=== PATIENT | male | born 1940 | race Caucasian/White ===

== ENCOUNTER 2018-09-04 11:17 | Emergency (ER) | payer MEDICARE ==
[2018-09-04 12:14] LABS: Absolute Lymphocytes (CBC) 0.9 K/uL (0.7-4.9); Absolute Monocytes 0.7 K/uL (0.1-1.3); Absolute Neutrophil 5.6 K/uL (1.8-8.0); Basophils % 0.4 % (0-1.3); Eosinophils % 0.4 % (0-4.4); Hematocrit 42.8 % (39.6-49.0); MCH 34.8 pg (27.0-35.0); MCV 99.7 fL (80-100); MPV 7.7 fL (7.6-11.3); RBC Red Blood Cell Count 4.29 M/uL (4.33-5.43)
[2018-09-04 12:37] LABS: ALT/SGPT 35 U/L (12-78); AST/SGOT 36 U/L (15-37); Albumin 3.2 g/dL (3.4-5.0); Alkaline Phosphatase 60 U/L (45-117); BUN Blood Urea Nitrogen 18 mg/dL (7-18); Bicarbonate 31 mmol/L (21-32); Bilirubin Direct 0.2 mg/dL (0-0.2); Bilirubin Total 0.5 mg/dL (0.2-1.0); Glucose Level 115 mg/dL (74-106); Potassium 3.6 mmol/L (3.5-5.1); Protein, Total 6.9 g/dL (6.4-8.2); Sodium Level 138 mmol/L (136-145)
--- NOTE | 2018-09-04 13:11 | RAD REPORT ---
EXAM DESCRIPTION: CT - Abdomen Pelvis W Contrast - 09/04/2018 12:58 pm CLINICAL HISTORY: Abdominal pain/cellulitis at percutaneous tube stoma. COMPARISON: none. TECHNIQUE: Computed axial tomography of the abdomen pelvis was obtained. 100 cc Isovue-300 was admin istered intravenously. Oral contrast was not requested which limits evaluation of bowel. All CT scans are performed using dose optimization technique as appropriate and may include automated exposure control or mA/KV adjustment according to patient size. FINDINGS: A gastrostomy tube has its tip within the left rectus abdominis muscle. Increased density surrounds the 2 within the subcutaneous fat consistent with a cellulitis. An abscess is not seen. The liver, spleen, pancreas, adrenal and kidneys appear unremarkable. Small renal cysts are noted. There is no evidence of diverticulitis. 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 IMPRESSION: Tip of a percutaneous gastrostomy tube lies within the left rectus abdominis muscle. Increased density within the subcutaneous fat of the left anterior abdomen compatible with cellulitis
--- NOTE | 2018-09-04 14:26 | EDPHYS ---
Physician Documentation [facility] Name: Johan Suarez Age: 78 yrs Sex: Male : 1940 Arrival Date: 09/04/2018 Time: 11:20 Bed 18 Private MD: Shane Shepherd E ED Physician Esdras Kennedy HPI: 09/04 12:30 This 78 yrs old Male presents to ER via Ambulatory with complaints of Problem pm1 With Feeding Tube. 12:30 Concerns of infection of the skin of the abdomen around the stoma. Description: Painful pm1 and reddened. Onset: The symptoms/episode began/occurred 4 day(s) ago. Possible cause(s): unknown. Associated signs and symptoms: Pertinent positives: discharge, Pertinent negatives: fever, headache, swelling. Modifying factors: the symptoms are alleviated by nothing, the symptoms are aggravated by nothing. Severity of symptoms: in the emergency department the symptoms are unchanged. The patient has not experienced similar symptoms in the past. 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 Patient had an appointment on Saturday for removal of his PEG tube since he has been eating and drinking for the past 2 weeks without any difficulty. For the past 4 days he has noticed some pain, redness, and discharge from his stoma. Patient has not been using the PEG tube, but has been flushing it. Historical: - Allergies: 11:25 No Known Allergies; aj - PMHx: 11:25 cancer (jaw); Hyperlipidemia; aj - PSHx: 11:25 Hernia repair(November 02, 2015); double bypass; aj - Immunization history:: Adult Immunizations up to date. - Social history:: Smoking status: Patient/guardian denies using tobacco. - Ebola Screening: : Patient negative for fever greater than or equal to 101.5 degrees Fahrenheit, and additional compatible Ebola Virus Disease symptoms Patient denies exposure to infectious person Patient denies travel to an Ebola-affected area in the 21 days before illness onset No symptoms or risks identified at this time. ROS: 12:30 Constitutional: Negative for fever, chills, and weight loss, Eyes: Negative for injury, pm1 pain, redness, and discharge, ENT: Negative for injury, pain, and discharge, Neck: Negative for injury, pain, and swelling, Cardiovascular: Negative for chest pain, palpitations, and edema, Respiratory: Negative for shortness of breath, cough, wheezing, and pleuritic chest pain, Abdomen/GI: Negative for abdominal pain, nausea, vomiting, diarrhea, and constipation, Back: Negative for injury and pain, : Negative for injury, bleeding, discharge, and swelling, MS/Extremity: Negative for injury and deformity. 12:30 Neuro: Negative for headache, weakness, numbness, tingling, and seizure. 12:30 Skin: Positive for pain, redness around the stoma and discharge from stoma. Exam: 12:30 Constitutional: This is a well developed, well nourished patient who is awake, alert, pm1 and in no acute distress. Head/Face: Normocephalic, atraumatic. Neck: Trachea midline, no thyromegaly or masses palpated, and no cervical lymphadenopathy. Supple, full range of motion without nuchal rigidity, or vertebral point tenderness. No Meningismus. Chest/axilla: Normal chest wall appearance and motion. Nontender with no deformity. No lesions are appreciated. Cardiovascular: Regular rate and rhythm with a normal S1 and S2. No gallops, murmurs, or rubs. Normal PMI, no JVD. No pulse deficits. Respiratory: Lungs have equal breath sounds bilaterally, clear to auscultation and percussion. No rales, rhonchi or wheezes noted. No increased work of breathing, no retractions or nasal flaring. Abdomen/GI: Soft, non-tender, with normal bowel sounds. No distension or tympany. No guarding or rebound. No evidence of tenderness throughout. Back: No spinal tenderness. No costovertebral tenderness. Full range of motion. 12:30 Skin: Appearance: normal except for affected area, cellulitis, on the abdomen, 5 cm diameter area of induration at stoma site. No fluctuance present. 12:30 Neuro: Orientation: is normal, Motor: is normal, moves all fours, Gait: is steady, at a normal pace, without difficulty. Vital Signs: 11:25 BP 129 / 58; Pulse 85; Resp 19; Temp 97.2; Pulse Ox 98% on R/A; Weight 65.77 kg; Height aj 5 ft. 10 in. (177.80 cm); 12:53 BP 128 / 60; Pulse 84; Resp 18; Pulse Ox 100% on R/A; hj 13:08 BP 134 / 68; Pulse 75; Resp 18; Pulse Ox 100% on R/A; hj 13:52 BP 125 / 69; Pulse 76; Resp 18; Pulse Ox 100% on R/A; hj 11:25 Body Mass Index 20.81 (65.77 kg, 177.80 cm) aj MDM: 11:30 Patient medically screened. pm1 13:50 Physician consultation: Panda Rodriguez MD was called at 13:50, was contacted at 13:50, pm1 regarding consult, patient's condition, Consulted on advice for management: No need to replace PEG tube if it was scheduled to be removed in 4 days. Patient has been able to eat and drink by mouth for the past 2 weeks without any issues. May give Bactrim and Levaquin for no more than 5 days for peristomal cellulitis if needed. Place dressing on stoma and inform the patient that there will be some leakage from the stoma for the next 7 days. After eating and drinking try positioning, lying back, to prevent leakage. 13:58 Data reviewed: vital signs. Data interpreted: Pulse oximetry: on room air is 100 %. pm1 Interpretation: normal. 14:21 Physician consultation: Paul Griffin was contacted at 14:22, regarding consult, pm1 patient's condition, and will see patient in office, 1 week from today. Agrees with plan from Dr. Rodriguez. Apply dressing with paper tape and discharge to home with antibiotics. 09/04 11:45 Order name: Basic Metabolic Panel; Complete Time: 12:38 pm1 09/04 11:45 Order name: CBC with Diff; Complete Time: 12:22 pm1 09/04 11:45 Order name: Hepatic Function; Complete Time: 12:38 pm1 09/04 11:45 Order name: IV Saline Lock; Complete Time: 11:58 pm1 09/04 11:45 Order name: Labs collected and sent; Complete Time: 11:58 pm1 09/04 11:45 Order name: CT Abd/Pelvis - W/Contrast; Complete Time: 13:17 pm1 Administered Medications: No medications were administered Disposition: 16:02 Co-signature as Attending Physician, Esdras Kennedy MD. rn Disposition: 09/04/18 14:25 Discharged to Home. Impression: Cellulitis of abdominal wall - Peristomal cellulitis. - Condition is Stable. - Discharge Instructions: Cellulitis, Adult. - Prescriptions for Bactrim DS 800- 160 mg Oral Tablet - take 1 tablet by ORAL route every 12 hours for 10 days; 20 tablet. - Medication Reconciliation Form, Thank You Letter, Antibiotic Education form. - Follow up: Private Physician; When: 1 week; Reason: Recheck today's complaints, Continuance of care, Re-evaluation by your physician. - Problem is new. - Symptoms have improved. Signatures: Dispatcher [employer] EDMS Loreta Aguilar RN RN aj Nieto, Roman, MD MD rn Joaquin, Henry, RN RN hj Marinas, Patrick, GLUE COOK GLUE COOK pm1 Corrections: (The following items were deleted from the chart) 14:26 14:25 09/04/2018 14:25 Discharged to Home. Impression: Peristomal cellulitis. Condition pm1 is Stable. Forms are Medication Reconciliation Form, Thank You Letter, Antibiotic Education, Prescription Opioid Use. Follow up: Private Physician; When: 1 week; Reason: Recheck today's complaints, Continuance of care, Re-evaluation by your physician. Problem is new. Symptoms have improved. pm1 14:47 14:26 09/04/2018 14:25 Discharged to Home. Impression: Cellulitis of abdominal wall - hj Peristomal cellulitis. Condition is Stable. Discharge Instructions: Cellulitis, Adult. Prescriptions for Bactrim DS 800-160 mg Oral Tablet - take 1 tablet by ORAL route every 12 hours for 10 days; 20 tablet. and Forms are Medication Reconciliation Form, Thank You Letter, Antibiotic Education. Follow up: Private Physician; When: 1 week; Reason: Recheck today's complaints, Continuance of care, Re-evaluation by your physician. Problem is new. Symptoms have improved. pm1
--- NOTE | 2018-09-04 14:26 | ER ---
Nurse's Notes [facility] Name: Johan Suarez Age: 78 yrs Sex: Male : 1940 Arrival Date: 09/04/2018 Time: 11:20 Bed 18 Private MD: Shane Shepherd E Diagnosis: Cellulitis of abdominal wall-Peristomal cellulitis Presentation: 09/04 11:24 Presenting complaint: Patient states: Reports redness, inflammation, and pain at aj feeding tube site for 4 days. Transition of care: patient was not received from another setting of care. Onset of symptoms was August 31, 2018. Risk Assessment: Do you want to hurt yourself or someone else? Patient reports no desire to harm self or others. Initial Sepsis Screen: Does the patient meet any 2 criteria? No. Patient's initial sepsis screen is negative. Does the patient have a suspected source of infection? No. Patient's initial sepsis screen is negative. Care prior to arrival: None. 11:24 Method Of Arrival: Ambulatory aj 11:24 Acuity: MONI 3 aj Triage Assessment: 11:25 General: Appears in no apparent distress. comfortable, Behavior is calm, cooperative, aj appropriate for age. Pain: Complains of pain in abdomen. Neuro: Level of Consciousness is awake, alert, obeys commands, Oriented to person, place, time, situation, Appropriate for age. Respiratory: Airway is patent Respiratory effort is even, unlabored, Respiratory pattern is regular, symmetrical. GI: PEG tube in place, clamped. Site reddened. Site with drainage. Derm: Skin is intact, is healthy with good turgor, Skin is pink, warm \T\ dry. normal. Historical: - Allergies: 11:25 No Known Allergies; aj - PMHx: 11:25 cancer (jaw); Hyperlipidemia; aj - PSHx: 11:25 Hernia repair(November 02, 2015); double bypass; aj - Immunization history:: Adult Immunizations up to date. - Social history:: Smoking status: Patient/guardian denies using tobacco. - Ebola Screening: : Patient negative for fever greater than or equal to 101.5 degrees Fahrenheit, and additional compatible Ebola Virus Disease symptoms Patient denies exposure to infectious person Patient denies travel to an Ebola-affected area in the 21 days before illness onset No symptoms or risks identified at this time. Screenin:28 Abuse screen: Denies threats or abuse. Denies injuries from another. Nutritional hj screening: No deficits noted. Tuberculosis screening: No symptoms or risk factors identified. Fall Risk None identified. Assessment: 11:29 General: Appears in no apparent distress. uncomfortable, Behavior is calm, cooperative, hj appropriate for age. Pain: Denies pain. Neuro: Level of Consciousness is awake, alert, obeys commands, Oriented to person, place, time, situation, Appropriate for age. Cardiovascular: Capillary refill < 3 seconds Patient's skin is warm and dry. Respiratory: Airway is patent Respiratory effort is even, unlabored, Respiratory pattern is regular, symmetrical. GI: Reports redness around area of feeding tube for 4 days now;. : No signs and/or symptoms were reported regarding the genitourinary system. EENT: No signs and/or symptoms were reported regarding the EENT system. Derm: No signs and/or symptoms reported regarding the dermatologic system. Musculoskeletal: No signs and/or symptoms reported regarding the musculoskeletal system. 12:53 Reassessment: wheeled to CT;. hj 12:55 Reassessment: Patient and/or family updated on plan of care and expected duration. Pain hj level reassessed. Patient is alert, oriented x 3, equal unlabored respirations, skin warm/dry/pink. awaiting results and POC;. 13:52 Reassessment: provider in room ; assisted provider in pulling out PEG tube; stoma care hj done;. 14:05 Reassessment: spoke with Dr. Paul Griffin, medical secretary and gave [phone] call back contact number; provider informed;. Vital Signs: 11:25 BP 129 / 58; Pulse 85; Resp 19; Temp 97.2; Pulse Ox 98% on R/A; Weight 65.77 kg; Height aj 5 ft. 10 in. (177.80 cm); 12:53 BP 128 / 60; Pulse 84; Resp 18; Pulse Ox 100% on R/A; hj 13:08 BP 134 / 68; Pulse 75; Resp 18; Pulse Ox 100% on R/A; hj 13:52 BP 125 / 69; Pulse 76; Resp 18; Pulse Ox 100% on R/A; hj 11:25 Body Mass Index 20.81 (65.77 kg, 177.80 cm) ED Course: 11:20 Patient arrived in ED. mr 11:20 Shane Shepherd MD is Private Physician. mr 11:25 Triage completed. aj 11:25 Arm band placed on left wrist. Patient placed in an exam room. aj 11:27 Christopher Mercer NP is PHCP. pm1 11:27 Esdras Kennedy MD is Attending Physician. pm1 11:27 Jean-Claude Avila, RN is Primary Nurse. 11:29 Patient has correct armband on for positive identification. Bed in low position. Call light in reach. Side rails up X 1. Adult w/ patient. 11:49 Radiology exam delayed due to lab results not completed at this time. (BUN/Creatinine). 11:55 Initial lab(s) drawn, by me, sent to lab. Inserted saline lock: 22 gauge in left hj antecubital area, using aseptic technique. Blood collected. 12:50 CT completed. Patient tolerated procedure well. Patient moved to CT via wheelchair. Patient moved back from CT. 12:59 CT Abd/Pelvis - W/Contrast In Process Unspecified. EDMS 14:25 Dressings: non-adherent dressing 4X4s secured with foam tape;. hj 14:26 No provider procedures requiring assistance completed. IV discontinued, intact, hj bleeding controlled, No redness/swelling at site. Pressure dressing applied. Administered Medications: No medications were administered Outcome: 14:25 Discharge ordered by MD. pm1 14:26 Discharged to home ambulatory, with family. hj 14:26 Condition: stable 14:26 Discharge instructions given to patient, Instructed on discharge instructions, follow up and referral plans. medication usage, Demonstrated understanding of instructions, follow-up care, medications, Prescriptions given X 1. 14:47 Patient left the ED. Signatures: Dispatcher [employer] EDMS Loreta Aguilar, Ann Holly RN Ana Falcon Jean-Claude Avila, Christopher Carlin RN, MASHA INTERVENTIONAL TECH pm1
[2018-09-04 14:51] VITALS: TEMP 97.2
[2018-09-04 14:53] VITALS: O2SAT 100
[2018-09-04 14:55] VITALS: BP 125/69
== END 2018-09-04 14:47 | disposition home or self-care (01) ==
LOC: ER 11:17
DX: L03.311 Cellulitis of abdominal wall (principal); E78.5 Hyperlipidemia, unspecified; Z85.89 Personal history of malignant neoplasm of other organs and systems
CPT/HCPCS: 36415; 74177; 80048; 80076; 85025; 99284; Q9967

== ENCOUNTER 2019-07-23 23:00 | Emergency (ER) | payer MEDICARE ==
[2019-07-23 23:37] LABS: Absolute Lymphocytes (CBC) 0.7 K/uL (0.7-4.9); Basophils % 0.1 % (0-1.3); Hematocrit 40.2 % (39.6-49.0); Lymphocytes % 13.1 % (15.3-44.8); MPV 7.4 fL (7.6-11.3)
[2019-07-23 23:38] LABS: Protime INR 1.1
[2019-07-23 23:54] LABS: ALT/SGPT 29 U/L (12-78); AST/SGOT 30 U/L (15-37); Albumin 3.8 g/dL (3.4-5.0); Alkaline Phosphatase 66 U/L (45-117); BUN Blood Urea Nitrogen 17 mg/dL (7-18); Bicarbonate 28 mmol/L (21-32); Bilirubin Direct 0.2 mg/dL (0-0.2); Bilirubin Total 0.5 mg/dL (0.2-1.0); Glucose Level 137 mg/dL (74-106); NT PRO-BNP 126 pg/mL (<450); Potassium 3.9 mmol/L (3.5-5.1); Sodium Level 137 mmol/L (136-145); Troponin (Emerg Dept Use Only) < 0.02 ng/mL (0.0-0.045)
--- NOTE | 2019-07-24 01:56 | ER ---
Nurse's Notes [facility] Name: Johan Suarez Age: 79 yrs Sex: Male : 1940 Arrival Date: 07/23/2019 Time: 23:05 Bed 6 Private MD: Diagnosis: Vertigo of central origin, bilateral;Vertigo of central origin, unspecified ear Presentation: 07/23 23:07 Presenting complaint: Patient states: N/V and dizziness sine 2200. pt stated EMS was ak1 called and came to his home and checked his vitals, no transport at that time. Transition of care: patient was not received from another setting of care. Onset of symptoms was July 23, 2019. Risk Assessment: Do you want to hurt yourself or someone else? Patient reports no desire to harm self or others. Initial Sepsis Screen: Does the patient meet any 2 criteria? No. Patient's initial sepsis screen is negative. Does the patient have a suspected source of infection? No. Patient's initial sepsis screen is negative. Care prior to arrival: None. 23:07 Method Of Arrival: Wheelchair ak1 23:07 Acuity: MONI 3 ak1 Historical: - Allergies: 23:11 No Known Allergies; ak1 - Home Meds: 23:11 metoprolol tartrate 25 mg Oral tab 1 tab 2 times per day [Active]; gabapentin 300 mg ak1 oral cap 1 cap 4 times daily [Active]; propionate [Active]; fluticasone furoate nasal nasal [Active]; simvastatin 40 mg Oral tab 1 tab once daily [Active]; cyclobenzaprine 10 mg Oral tab PRN [Active]; tramadol 50 mg Oral tab 1 tab PRN [Active]; hydrocodone-acetaminophen 7.5-325 mg Oral tab 1 tab PRN [Active]; Aspirin Oral [Active]; - PMHx: 23:11 cancer (jaw); Hyperlipidemia; ak1 - PSHx: 23:11 double bypass; Hernia repair(November 02, 2015); ak1 - Immunization history:: Adult Immunizations unknown. - Social history:: Smoking status: Patient/guardian denies using tobacco. - Ebola Screening: : No symptoms or risks identified at this time. Screenin:05 Abuse screen: Denies threats or abuse. Denies injuries from another. Nutritional rr5 screening: No deficits noted. Tuberculosis screening: No symptoms or risk factors identified. Fall Risk IV access (20 points). Total Meyer Fall Scale indicates No Risk (0-24 pts). Assessment: 23:10 General: Appears in no apparent distress. uncomfortable, Behavior is calm, cooperative, rr5 appropriate for age. 23:10 Pain: Denies pain. Neuro: Level of Consciousness is awake, alert, obeys commands, rr5 Oriented to person, place, time, situation, Appropriate for age Reports dizziness. Cardiovascular: Capillary refill < 3 seconds Patient's skin is warm and dry. Respiratory: Airway is patent Respiratory effort is even, unlabored, Respiratory pattern is regular, symmetrical. GI: Abdomen is flat, Reports nausea, vomiting. : No signs and/or symptoms were reported regarding the genitourinary system. EENT: post operation of the jaw noted.. Derm: Skin is intact, Skin is pink, warm \T\ dry. Musculoskeletal: Circulation, motion, and sensation intact. Capillary refill < 3 seconds. 07/24 00:10 Reassessment: Patient appears in no apparent distress at this time. Patient and/or rr5 family updated on plan of care and expected duration. Pain level reassessed. Patient is alert, oriented x 3, equal unlabored respirations, skin warm/dry/pink. awaiting for results. Patient states feeling better. Patient states symptoms have improved. 01:16 Reassessment: Patient appears in no apparent distress at this time. Patient is alert, rr5 oriented x 3, equal unlabored respirations, skin warm/dry/pink. discharge instruction given and explained without complaints made verbalized understanding Patient denies pain at this time. Patient states feeling better. Patient states symptoms have improved. Vital Signs: 07/23 23:06 BP 158 / 75; Pulse 68; Resp 18; Temp 97.2; Pulse Ox 100% on R/A; Weight 63.5 kg (R); ak1 Height 5 ft. 10 in. (177.80 cm) (R); Pain 0/10; 23:54 BP 131 / 80; Pulse 65; Resp 17; Pulse Ox 99% ; rr5 07/24 01:00 BP 125 / 75; Pulse 69; Resp 16; Temp 97.5; Pulse Ox 99% ; Pain 0/10; rr5 07/23 23:06 Body Mass Index 20.09 (63.50 kg, 177.80 cm) ak1 ED Course: 07/23 23:05 Patient arrived in ED. bb 23:05 Inserted saline lock: 20 gauge in right antecubital area, using aseptic technique. rr5 Blood collected. 23:06 Iam Villasenor MD is Attending Physician. kdr 23:06 Arm band placed on Patient placed in an exam room, on a stretcher, on pulse oximetry, ak1 Patient notified of wait time. 23:07 Triage completed. ak1 23:11 Patient has correct armband on for positive identification. Placed in gown. Bed in low ak1 position. Call light in reach. Side rails up X2. Adult w/ patient. Pulse ox on. NIBP on. 23:33 Jam Traylor, RN is Primary Nurse. rr5 23:37 CT completed. Patient tolerated procedure well. Patient moved to CT via stretcher. Patient moved back from CT. 23:40 CT Head Brain wo Cont In Process Unspecified. EDMS 23:49 XRAY Chest (1 view) In Process Unspecified. EDMS 09/ 01:16 No provider procedures requiring assistance completed. IV discontinued, intact, rr5 bleeding controlled, No redness/swelling at site. Pressure dressing applied. Administered Medications: No medications were administered Outcome: 00:44 Discharge ordered by . kdr 01:16 Discharged to home via wheelchair, with family. rr5 01:16 Condition: stable 01:16 Discharge instructions given to patient, Instructed on discharge instructions, follow up and referral plans. medication usage, Demonstrated understanding of instructions, follow-up care, medications, Prescriptions given X 1. 01:17 Patient left the ED. rr5 Signatures: Dispatcher [employer] EDOH Iam Villasenor MD MD [facility] Teto Dudley Yanely Goldberg RN RN bb Nancy Malagon, RN RN ak1 Jam Traylor, RN RN rr5
--- NOTE | 2019-07-24 02:02 | EDPHYS ---
Physician Documentation [facility] Name: Johan Suarez Age: 79 yrs Sex: Male : 1940 Arrival Date: 07/23/2019 Time: 23:05 Bed 6 Private MD: ED Physician Iam Villasenor HPI: 07/23 23:45 This 79 yrs old Male presents to ER via Wheelchair with complaints of kdr Dizziness. 23:45 The patient presents with feeling off balance, sense of spinning, vertigo. Onset: The kdr symptoms/episode began/occurred suddenly, at 21:30. Context: occurred at home, occurred while the patient was at rest, Had needed to get up and go to the bathroom and was immediately dizzy. He had been fine and without c/o all day. Modifying factors: The symptoms are alleviated by nothing, the symptoms are aggravated by movement of head, standing up, changing position. Associated signs and symptoms: Pertinent positives: nausea, vomiting, Pertinent negatives: abdominal pain, agitation, blurred vision, chest pain, combativeness, confusion, diaphoresis, focal weakness, head injury, headache, numbness, palpitations, . Severity of symptoms: At their worst the symptoms were moderate severe incapacitating in the emergency department the symptoms have resolved and did so just prior to arrival. Patient's baseline: Neuro: alert and fully oriented, Motor: no deficits, Ambulation: walks without assistance, Speech: normal, normal for age, the patient makes incomprehensible sounds, The patient has a previous history of. The patient has not experienced similar symptoms in the past. The patient has not recently seen a physician. 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 - Social history:: Smoking status: Patient/guardian denies using tobacco. - Ebola Screening: : No symptoms or risks identified at this time. ROS: 23:45 Constitutional: Negative for fever, chills, and weight loss, Eyes: Negative for injury, kdr pain, redness, and discharge, Neck: Negative for injury, pain, and swelling, Cardiovascular: Negative for chest pain, palpitations, and edema, Respiratory: Negative for shortness of breath, cough, wheezing, and pleuritic chest pain, Abdomen/GI: Negative for abdominal pain, nausea, vomiting, diarrhea, and constipation, Back: Negative for injury and pain, : Negative for injury, bleeding, discharge, and swelling, MS/Extremity: Negative for injury and deformity, Skin: Negative for injury, rash, and discoloration, Psych: Negative for depression, anxiety, suicide ideation, homicidal ideation, and hallucinations, Allergy/Immunology: Negative for hives, rash, and allergies, Endocrine: Negative for neck swelling, polydipsia, polyuria, polyphagia, and marked weight changes, Hematologic/Lymphatic: Negative for swollen nodes, abnormal bleeding, and unusual bruising. 23:45 Neuro: Positive for dizziness, Negative for altered mental status, gait disturbance, headache, hearing loss, loss of consciousness, numbness, seizure activity, speech changes, syncope, near syncope, tingling, tinnitus, tremor, visual changes, weakness. Exam: 23:18 ECG was reviewed by the Attending Physician. kdr 23:45 Constitutional: This is a well developed, well nourished patient who is awake, alert, kdr and in no acute distress. Head/Face: Normocephalic, atraumatic. Eyes: Pupils equal round and reactive to light, extra-ocular motions intact. Lids and lashes normal. Conjunctiva and sclera are non-icteric and not injected. Cornea within normal limits. Periorbital areas with no swelling, redness, or edema. Neck: Trachea midline, no thyromegaly or masses palpated, and no cervical lymphadenopathy. Supple, full range of motion without nuchal rigidity, or vertebral point tenderness. No Meningismus. Chest/axilla: Normal chest wall appearance and motion. Nontender with no deformity. No lesions are appreciated. Cardiovascular: Regular rate and rhythm with a normal S1 and S2. No gallops, murmurs, or rubs. Normal PMI, no JVD. No pulse deficits. Respiratory: Lungs have equal breath sounds bilaterally, clear to auscultation and percussion. No rales, rhonchi or wheezes noted. No increased work of breathing, no retractions or nasal flaring. Abdomen/GI: Soft, non-tender, with normal bowel sounds. No distension or tympany. No guarding or rebound. No evidence of tenderness throughout. Back: No spinal tenderness. No costovertebral tenderness. Full range of motion. Skin: Warm, dry with normal turgor. Normal color with no rashes, no lesions, and no evidence of cellulitis. MS/ Extremity: Pulses equal, no cyanosis. Neurovascular intact. Full, normal range of motion. Neuro: Awake and alert, GCS 15, oriented to person, place, time, and situation. Cranial nerves II-XII grossly intact. Motor strength 5/5 in all extremities. Sensory grossly intact. Cerebellar exam normal. Normal gait. Psych: Awake, alert, with orientation to person, place and time. Behavior, mood, and affect are within normal limits. Vital Signs: 23:06 BP 158 / 75; Pulse 68; Resp 18; Temp 97.2; Pulse Ox 100% on R/A; Weight 63.5 kg (R); ak1 Height 5 ft. 10 in. (177.80 cm) (R); Pain 0/10; 23:54 BP 131 / 80; Pulse 65; Resp 17; Pulse Ox 99% ; rr5 07/24 01:00 BP 125 / 75; Pulse 69; Resp 16; Temp 97.5; Pulse Ox 99% ; Pain 0/10; rr5 07/23 23:06 Body Mass Index 20.09 (63.50 kg, 177.80 cm) ak1 MDM: 07/23 23:45 Data reviewed: vital signs, nurses notes, lab test result(s), radiologic studies. kdr Counseling: I had a detailed discussion with the patient and/or guardian regarding: the historical points, exam findings, and any diagnostic results supporting the discharge/admit diagnosis, lab results, radiology results. 07/24 00:44 Patient medically screened. [facility] 07/23 23:08 Order name: Basic Metabolic Panel; Complete Time: 00:34 [facility] 07/23 23:08 Order name: CBC with Diff; Complete Time: 00:34 [facility] 07/23 23:08 Order name: LFT's; Complete Time: 00:34 [facility] 07/23 23:08 Order name: Magnesium; Complete Time: 00:34 [facility] 07/23 23:08 Order name: NT PRO-BNP; Complete Time: 00:34 [facility] 07/23 23:08 Order name: PT-INR; Complete Time: 00:34 [facility] 07/23 23:08 Order name: Troponin (emerg Dept Use Only); Complete Time: 00:34 [facility] 07/23 23:08 Order name: XRAY Chest (1 view) [facility] 07/23 23:08 Order name: EKG; Complete Time: 23:10 [facility] 07/23 23:08 Order name: Cardiac monitoring; Complete Time: 23:10 [facility] 07/23 23:08 Order name: EKG - Nurse/Tech; Complete Time: 23:10 [facility] 07/23 23:08 Order name: IV Saline Lock; Complete Time: 23:10 [facility] 07/23 23:08 Order name: Labs collected and sent; Complete Time: 23:10 [facility] 07/23 23:08 Order name: CT Head Brain wo Cont [facility] 07/23 23:08 Order name: O2 Per Protocol; Complete Time: 23:10 [facility] 07/23 23:08 Order name: O2 Sat Monitoring; Complete Time: 23:10 kdr EC/05 23:18 Rate is 66 beats/min. Rhythm is regular, Normal Sinus Rhythm with No ectopy. QRS [place] kdr is Normal. MN interval is normal. QRS interval is normal. QT interval is normal. No Q waves. T waves are Normal. Clinical impression: Normal ECG. Administered Medications: No medications were administered Disposition: 07/24/19 00:44 Discharged to Home. Impression: Vertigo of central origin, bilateral, Vertigo of central origin, unspecified ear. - Condition is Stable. - Discharge Instructions: Vertigo, Tlno-ej-Goxu, Dizziness, Mopr-lj-[id number]. - Prescriptions for Meclizine 25 mg Oral Tablet - take 1 tablet by ORAL route every 8 hours As needed; 30 tablet. - Medication Reconciliation Form, Thank You Letter form. - Follow up: Private Physician; When: 2 - 3 days; Reason: If symptoms return, Further diagnostic work-up, Recheck today's complaints, Continuance of care, Re-evaluation by your physician. - Problem is new. - Symptoms are resolved. Signatures: Dispatcher [employer] EDMS Iam Villasenor MD MD kdr Nancy Malagon, RN RN ak1 Jam Traylor RN RN rr5 Corrections: (The following items were deleted from the chart) 07/24 00:44 00:44 07/24/2019 00:44 Discharged to Home. Impression: Vertigo of central origin, kdr bilateral; Vertigo of central origin, unspecified ear. Condition is Stable. Forms are Medication Reconciliation Form, Thank You Letter, Antibiotic Education, Prescription Opioid Use. Follow up: Private Physician; When: 2 - 3 days; Reason: If symptoms return, Further diagnostic work-up, Recheck today's complaints, Continuance of care, Re-evaluation by your physician. kdr 01:17 00:44 07/24/2019 00:44 Discharged to Home. Impression: Vertigo of central origin, rr5 bilateral; Vertigo of central origin, unspecified ear. Condition is Stable. Forms are Medication Reconciliation Form, Thank You Letter, Antibiotic Education, Prescription Opioid Use. Follow up: Private Physician; When: 2 - 3 days; Reason: If symptoms return, Further diagnostic work-up, Recheck today's complaints, Continuance of care, Re-evaluation by your physician. Problem is new. Symptoms are resolved. kdr
--- NOTE | 2019-07-24 08:23 | EKG ---
Test Date: 2019-07-23 Test Time: 23:16:18 Manager Of Case Management: RR MEASUREMENT RESULTS: Intervals: Rate: 66 [place]: 186 QRSD: 108 QT: 422 QTc: 442 [place]: P: 86 [place]: 186 QRS: 67 T: 77 INTERPRETIVE STATEMENTS: Normal sinus rhythm Normal ECG No previous ECG available for comparison Electronically Signed On 07-24-19 08:22:43 CDT by Kai Castillo
[2019-07-24 08:44] VITALS: O2SAT 99
[2019-07-24 08:46] VITALS: BP 125/75; TEMP 97.5
--- NOTE | 2019-07-24 09:38 | RAD REPORT ---
EXAM DESCRIPTION: RAD - Chest Single View - 07/23/2019 11:49 pm CLINICAL HISTORY: Dizziness, shortness of breath, history of head and neck cancer COMPARISON: October 2015, March 2012 TECHNIQUE: AP portable chest image was obtained 2337 hours . FINDINGS: Patient has multiple bilateral calcified masses in the mid and upper lung mason. Dense ca lcified mediastinal and hilar lymph nodes are present. This is a stable pattern back to 2011. Heart a nd vasculature are normal. No measurable pleural effusion and no pneumothorax. No acute bony abnormal ity seen. No acute aortic findings suspected. IMPRESSION: No acute cardiopulmonary finding identified. Bilateral calcified masses of the mediastinum, hilar and upper lung mason are stable to at least 201 2. Silicosis is a primary consideration.
--- NOTE | 2019-07-24 10:12 | RAD REPORT ---
EXAM DESCRIPTION: CT - Head Brain Wo Cont - 07/24/2019 3:17 am CLINICAL HISTORY: DIZZINESS TECHNIQUE: Multiple axial CT images of the brain were performed followed by sagittal and coronal rec onstructed images. The CT study is performed according to ALARA (as low as reasonably achievable) or ALARA/IMAGE GENTLY, with automatic adjustment of mA and/or kV according to patient size. Performed on: 07/23/2019 at 11:17 PM COMPARISON: None. FINDINGS: There is no evidence of mass, acute mass effect or midline shift. There are no acute extra -axial fluid collections. There is no evidence of acute intracranial hemorrhage. The cerebral sulci and ventricles are prominent consistent with mild cerebral volume loss. There are scattered areas of decreased attenuation within the subcortical and periventricular white m atter most likely due to mild chronic microangiopathy. There is no significant mucosal thickening of the paranasal sinuses. The mastoid air cells are clear. The orbital contents are grossly unremarkable. There is dislocation of the right temporomandibular joint. No focal soft tissue abnormalities are identified. IMPRESSION: 1. Dislocation of the right temporomandibular joint. 2. No evidence of acute intracranial pathology. 3. 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 Electronically signed by: Alondra West DO 07/23/2019 11:48 PM CDT Due to temporary technical issues with the PACS/Fluency reporting system, reports are being signed by the in house radiologist as a courtesy to ensure prompt reporting. The interpreting radiologist is f ully responsible for the content of the report.
== END 2019-07-24 01:17 | disposition home or self-care (01) ==
LOC: ER 23:00
DX: H81.43 Vertigo of central origin, bilateral (principal); E78.5 Hyperlipidemia, unspecified
CPT/HCPCS: 36415; 70450; 71045; 80048; 80076; 83735; 83880; 84484; 85025; 85610; 93005; 99284

== ENCOUNTER 2021-02-11 19:14 | Emergency (ER) | payer MEDICARE ==
--- OUTSIDE RECORDS SUMMARY | 2021-02-11 19:17 | XMS REPORT | Continuity of Care Document ---
:1940 Author Organization [facility] t Address [address] [place] [address] Dr. Sosa [address] [place] [id number] Care Team Providers Name Role Phone Unavailable Unavailable Unavailable Problems This patient has no known problems. Allergies, Adverse Reactions, Alerts This patient has no known allergies or adverse reactions. Medications This patient has no known medications. Procedures This patient has no known procedures. Encounters Start End Encounter Admission Attending Care Care Encounter Source Date/Time Date/Time Type Type Clinicians Facility Department ID 2021-01-18 2021-01-18 Outpatient [facility] [id number] [facility] 06:25:00 06:25:00 Results This patient has no known results.
[2021-02-11] MEDS ORDERED: NA CHLORIDE 0.9% 1,000 ML ONE (21:29)
[2021-02-11 21:30] LABS: Absolute Lymphocytes (CBC) 0.9 K/uL (0.7-4.9); Basophils % 0.3 % (0-1.3); Hematocrit 36.8 % (39.6-49.0); Lymphocytes % 18.6 % (15.3-44.8); MPV 6.6 fL (7.6-11.3); RBC Red Blood Cell Count 3.99 M/uL (4.33-5.43)
[2021-02-11 21:33] LABS: Protime INR 1.15
[2021-02-11 21:41] LABS: ALT/SGPT 27 U/L (12-78); AST/SGOT 28 U/L (15-37); Albumin 3.4 g/dL (3.4-5.0); Alkaline Phosphatase 70 U/L (45-117); BUN Blood Urea Nitrogen 12 mg/dL (7-18); Bicarbonate 31 mmol/L (21-32); Bilirubin Direct 0.2 mg/dL (0-0.2); Bilirubin Total 0.6 mg/dL (0.2-1.0); Glucose Level 120 mg/dL (74-106); Protein, Total 7.3 g/dL (6.4-8.2); Sodium Level 128 mmol/L (136-145)
[2021-02-11] MEDS ORDERED: MAGNES/ALUMIN/SIMET 30ML UCUP ONE (22:14)
[2021-02-11] MEDS ORDERED: LIDOCAINE VISCOUS 2% SOLN 15 ML UDC ONE (22:15)
[2021-02-11] MEDS ORDERED: DIPHENHYDRAMINE 12.5MG/5ML LIQ ONE (22:15)
--- NOTE | 2021-02-11 23:53 | ER ---
Nurse's Notes [facility] Name: Johan Suarez Age: 80 yrs Sex: Male : 1940 Arrival Date: 02/11/2021 Time: 19:16 Bed 19 Private MD: Diagnosis: Oral Candidiasis Presentation: 02/11 19:30 Chief complaint: Patient states: Has jaw CA. Mouth/gum swelling for over 1 week, worse ll1 today No known fever. Has chemo and radiation appointments coming up. Coronavirus screen: Client denies travel out of the [place] in the last 14 days. At this time, the client does not indicate any symptoms associated with coronavirus-19. Ebola Screen: Patient denies travel to an Ebola-affected area in the 21 days before illness onset. Initial Sepsis Screen: Does the patient meet any 2 criteria? No. Patient's initial sepsis screen is negative. Does the patient have a suspected source of infection? Yes: Skin breakdown/wound. Risk Assessment: Do you want to hurt yourself or someone else? Patient reports no desire to harm self or others. Onset of symptoms was February 05, 2021. 19:30 Method Of Arrival: Ambulatory ll1 19:30 Acuity: MONI 3 ll1 Historical: - Allergies: 19:34 No Known Allergies; ll1 - Home Meds: 21:52 metoprolol tartrate 25 mg Oral tab 1 tab 2 times per day [Active]; gabapentin 300 mg sf Oral cap 1 cap 4 times daily [Active]; fluticasone 50 mcg/actuation nasal spsn 1 spray once daily [Active]; simvastatin 40 mg Oral tab 1 tab once daily [Active]; cyclobenzaprine 10 mg Oral tab PRN [Active]; tramadol 50 mg Oral tab 1 tab PRN [Active]; hydrocodone-acetaminophen 7.5-325 mg Oral tab 1 tab PRN [Active]; Aspirin Oral 2 times a week [Active]; saw palmetto oral oral daily [Active]; ginkgo biloba 120 mg oral tab [Active]; colostrum, bovine oral oral [Active]; vitamin U18-qhiyq acid oral oral 3 times a week [Active]; multivitamin oral oral [Active]; vitamin E 400 unit Oral cap [Active]; Vitamin D3 5,000 unit oral tab 2 times a week [Active]; - PMHx: 19:34 cancer (jaw); Hyperlipidemia; ll1 - PSHx: 19:34 double bypass; Hernia repair(November 02, 2015); jaw CA sx-12/2017; ll1 - Immunization history:: Flu vaccine is not up to date. - Social history:: Smoking status: Patient/guardian denies using tobacco, the patient reports quitting approximately 50 years ago. Assessment: 21:10 General: Appears uncomfortable, Behavior is calm, cooperative. Pain: Complains of pain sf in mouth. Neuro: No deficits noted. Level of Consciousness is awake, alert, Oriented to person, place, time, situation. Cardiovascular: No deficits noted. Patient's skin is warm and dry. Respiratory: No deficits noted. Airway is patent Respiratory effort is even, unlabored, Respiratory pattern is regular, symmetrical. GI: Reports Decreased PO intake. EENT: Reports difficulty swallowing. 23:40 Reassessment: Patient appears in no apparent distress at this time. No changes from sf previously documented assessment. Patient and/or family updated on plan of care and expected duration. Pain level reassessed. Patient is alert, oriented x 3, equal unlabored respirations, skin warm/dry/pink. Patient states feeling better. Patient states symptoms have improved. 02/12 00:27 Reassessment: Patient is alert, oriented x 3, equal unlabored respirations, skin bb warm/dry/pink. pt states he is feeling better, pt and family verbalized understanding of and agree to plan of care discharge instructions given pt ambulated with steady gait to exit accompanied by family. Vital Signs: 02/11 19:30 BP 144 / 68; Pulse 75; Resp 17; Temp 97.8; Pulse Ox 99% ; Weight 53.52 kg; Height 5 ft. ll1 9 in. (175.26 cm); Pain 5/10; 22:00 BP 131 / 49; Pulse 78; Resp 16; Pulse Ox 100% ; sf 02/12 00:28 BP 150 / 71; Pulse 80; Resp 16 S; Temp 97.9(O); Pulse Ox 99% on R/A; bb 02/11 19:30 Body Mass Index 17.42 (53.52 kg, 175.26 cm) ll1 ED Course: 02/11 19:16 Patient arrived in ED. cl3 19:33 Triage completed. ll1 19:34 Arm band placed on. ll1 20:39 Renato Hernandez MD is Attending Physician. [facility] 20:40 Beny Devries RN is Primary Nurse. sf 21:05 Initial lab(s) drawn, by ED staff, sent to lab. Inserted saline lock: 20 gauge in right sf antecubital area, using aseptic technique. Blood collected. 21:09 CBC with Diff Sent. sf 21:09 Ptt, Activated Sent. sf 21:09 Protime (+inr) Sent. sf 21:10 Patient has correct armband on for positive identification. Bed in low position. Call sf light in reach. Side rails up X 1. Pulse ox on. NIBP on. Door closed. Noise minimized. Visitors limited. Lights dimmed. Verbal reassurance given. 02/12 00:29 No provider procedures requiring assistance completed. IV discontinued, intact, bb bleeding controlled, No redness/swelling at site. Pressure dressing applied. Administered Medications: 02/11 21:15 Drug: NS 0.9% 1000 ml Route: IV; Rate: 1000 ml; Site: right antecubital; sf 22:00 Follow up: IV Status: Completed infusion; IV Intake: 1000ml sf 23:48 Follow up: Response: No adverse reaction sf 22:03 Drug: Viscous Lidocaine Liquid (4 %) 5 ml Route: Mucous Membrane; sf 22:57 Follow up: Response: No adverse reaction sf 22:03 Drug: Benadryl (diphenhydrAMINE) 5 ml Route: PO; sf 22:57 Follow up: Response: No adverse reaction sf 22:03 Drug: Maalox (aluminum hydroxide, magnesium hydroxide, simethicone) Suspension (200 sf mg-200 mg-20 mg/5 mL) 15 ml Route: PO; 22:57 Follow up: Response: No adverse reaction sf 22:57 Not Given (Medication not available): nystatin 465797 units PO once; swish and swallow sf Intake: 22:00 IV: 1000ml; Total: 1000ml. sf Outcome: 23:53 Discharge ordered by . [facility] 02/12 00:29 Discharged to home ambulatory, with family. bb Condition: stable Discharge instructions given to patient, family, Instructed on discharge instructions, follow up and referral plans. medication usage, Demonstrated understanding of instructions, follow-up care, medications, Prescriptions given X 2. 00:29 Patient left the ED. bb Signatures: Yanely Goldberg RN RN bb Alfonso Douglas cl3 Pietro Douglas RN RN 1 Renato Hernandez MD MD 7 Beny Devries RN RN sf Corrections: (The following items were deleted from the chart) 02/11 19:34 19:30 BP 144 / 68; Pulse 75bpm; Resp 17bpm; Pulse Ox 99%; Temp 96.8F; 53.52 kg; Height ll1 5 ft. 9 in.; BMI: 17.4; Pain 5/10; ll1
--- NOTE | 2021-02-11 23:53 | EDPHYS ---
Physician Documentation [facility] Name: Johan Suarez Age: 80 yrs Sex: Male : 1940 Arrival Date: 02/11/2021 Time: 19:16 Bed 19 Private MD: [facility] Physician Renato Hernandez HPI: 02/11 21:03 This 80 yrs old Male presents to ER via Ambulatory with complaints of Mouth mh7 Swelling. 21:03 The patient presents with swelling. The problem is located in the mouth. Onset: The mh7 symptoms/episode began/occurred 1 week(s) ago, present for 2 months per family. Duration: The symptoms are continuous, and are steadily getting worse. Modifying factors: The symptoms are alleviated by nothing, the symptoms are aggravated by nothing. Associated signs and symptoms: Pertinent positives: anorexia, pain, redness in area, swelling, Pertinent negatives: chills, dysphagia, fever, inability to eat, nausea, vomiting. Severity of symptoms: At their worst the symptoms were moderate, this morning, in the emergency department the symptoms are unchanged. Patient had jaw surgery, radiation, and chemotherapy for cancer in 2018. He complains of swelling to mouth that started two months ago but steadily increasing. he has been able to tolerate liquids with some difficulty. Denies chest pain, abdominal pain, SOB, cough, fever, nausea, vomiting.. Historical: - Allergies: 19:34 No Known Allergies; ll1 - Home Meds: 21:52 metoprolol tartrate 25 mg Oral tab 1 tab 2 times per day [Active]; gabapentin 300 mg sf Oral cap 1 cap 4 times daily [Active]; fluticasone 50 mcg/actuation nasal spsn 1 spray once daily [Active]; simvastatin 40 mg Oral tab 1 tab once daily [Active]; cyclobenzaprine 10 mg Oral tab PRN [Active]; tramadol 50 mg Oral tab 1 tab PRN [Active]; hydrocodone-acetaminophen 7.5-325 mg Oral tab 1 tab PRN [Active]; Aspirin Oral 2 times a week [Active]; saw palmetto oral oral daily [Active]; ginkgo biloba 120 mg oral tab [Active]; colostrum, bovine oral oral [Active]; vitamin C95-yxvwa acid oral oral 3 times a week [Active]; multivitamin oral oral [Active]; vitamin E 400 unit Oral cap [Active]; Vitamin D3 5,000 unit oral tab 2 times a week [Active]; - PMHx: 19:34 cancer (jaw); Hyperlipidemia; ll1 - PSHx: 19:34 double bypass; Hernia repair(November 02, 2015); jaw CA sx-12/2017; ll1 - Immunization history:: Flu vaccine is not up to date. - Social history:: Smoking status: Patient/guardian denies using tobacco, the patient reports quitting approximately 50 years ago. ROS: 21:03 Eyes: Negative for injury, pain, redness, and discharge, Neck: Negative for injury, mh7 pain, and swelling, Cardiovascular: Negative for chest pain, palpitations, and edema, Respiratory: Negative for shortness of breath, cough, wheezing, and pleuritic chest pain, Abdomen/GI: Negative for abdominal pain, nausea, vomiting, diarrhea, and constipation, Back: Negative for injury and pain, : Negative for injury, bleeding, discharge, and swelling, MS/Extremity: Negative for injury and deformity, Skin: Negative for injury, rash, and discoloration, Neuro: Negative for headache, weakness, numbness, tingling, and seizure, Psych: Negative for depression, anxiety, suicide ideation, homicidal ideation, and hallucinations, Allergy/Immunology: Negative for hives, rash, and allergies, Endocrine: Negative for neck swelling, polydipsia, polyuria, polyphagia, and marked weight changes, Hematologic/Lymphatic: Negative for swollen nodes, abnormal bleeding, and unusual bruising. 21:03 Constitutional: Positive for weight loss, 50 lbs over the past few years, Negative for body aches, chills, fatigue, fever, malaise. Exam: 21:03 Head/Face: Normocephalic, atraumatic. Eyes: Pupils equal round and reactive to light, mh7 extra-ocular motions intact. Lids and lashes normal. Conjunctiva and sclera are non-icteric and not injected. Cornea within normal limits. Periorbital areas with no swelling, redness, or edema. 21:03 Neck: Trachea midline, no thyromegaly or masses palpated, and no cervical lymphadenopathy. Supple, full range of motion without nuchal rigidity, or vertebral point tenderness. No Meningismus. Chest/axilla: Normal chest wall appearance and motion. Nontender with no deformity. No lesions are appreciated. Cardiovascular: Regular rate and rhythm with a normal S1 and S2. No gallops, murmurs, or rubs. Normal PMI, no JVD. No pulse deficits. Respiratory: Lungs have equal breath sounds bilaterally, clear to auscultation and percussion. No rales, rhonchi or wheezes noted. No increased work of breathing, no retractions or nasal flaring. Abdomen/GI: Soft, non-tender, with normal bowel sounds. No distension or tympany. No guarding or rebound. No evidence of tenderness throughout. Back: No spinal tenderness. No costovertebral tenderness. Full range of motion. Skin: Warm, dry with normal turgor. Normal color with no rashes, no lesions, and no evidence of cellulitis. MS/ Extremity: Pulses equal, no cyanosis. Neurovascular intact. Full, normal range of motion. Neuro: Awake and alert, GCS 15, oriented to person, place, time, and situation. Cranial nerves II-XII grossly intact. Motor strength 5/5 in all extremities. Sensory grossly intact. Cerebellar exam normal. Normal gait. Psych: Awake, alert, with orientation to person, place and time. Behavior, mood, and affect are within normal limits. 21:03 Constitutional: The patient appears in no acute distress, alert, awake, frail. 21:03 Head/face: left facial scaring. 23:47 ENT: External ear(s): are unremarkable, Nose: is normal, Mouth: Lips: moist, Oral mh7 mucosa: pink and intact, noted to have obvious thrush, Gums: reddened, Tongue: displays thrush, abscess, is not appreciated, drooling, is not appreciated, Posterior pharynx: is normal, airway is patent, Dental exam: normal, Voice: no acute changes, Breath odor: is normal. Vital Signs: 19:30 BP 144 / 68; Pulse 75; Resp 17; Temp 97.8; Pulse Ox 99% ; Weight 53.52 kg; Height 5 ft. ll1 9 in. (175.26 cm); Pain 5/10; 22:00 BP 131 / 49; Pulse 78; Resp 16; Pulse Ox 100% ; sf 02/12 00:28 BP 150 / 71; Pulse 80; Resp 16 S; Temp 97.9(O); Pulse Ox 99% on R/A; bb 02/11 19:30 Body Mass Index 17.42 (53.52 kg, 175.26 cm) ll1 [facility]: 02/11 23:50 Differential diagnosis: gingivitis, dental abscess, pericoronitis, aphthous ulcers, mh7 acute necrotizing ulcerative gingivitis, gingivostomatitis, Oral Thrush. Data reviewed: vital signs, nurses notes, lab test result(s), CBC, electrolytes. Data interpreted: Pulse oximetry: on room air is 100 %. Interpretation: normal. Counseling: I had a detailed discussion with the patient and/or guardian regarding: the historical points, exam findings, and any diagnostic results supporting the discharge/admit diagnosis, lab results, the need for outpatient follow up, to return to the emergency department if symptoms worsen or persist or if there are any questions or concerns that arise at home. Response to treatment: the patient's symptoms have markedly improved after treatment. 23:53 Patient medically screened. [facility] 02/11 20:57 Order name: CBC with Diff [facility] 02/11 20:57 Order name: Basic Metabolic Panel; Complete Time: 22:19 [facility] 02/11 20:57 Order name: LFT's; Complete Time: 22:19 [facility] 02/11 20:57 Order name: CBC with Automated Diff; Complete Time: 21:40 [facility] 02/11 21:03 Order name: Protime (+inr) [facility] 02/11 21:03 Order name: Ptt, Activated [facility] 02/11 21:03 Order name: Protime (+INR); Complete Time: 21:40 [facility] 02/11 21:03 Order name: PTT, Activated Partial Thromb; Complete Time: 21:40 [facility] 02/11 22:40 Order name: PO challenge; Complete Time: 23:46 [facility] Administered Medications: 21:15 Drug: NS 0.9% 1000 ml Route: IV; Rate: 1000 ml; Site: right antecubital; sf 22:00 Follow up: IV Status: Completed infusion; IV Intake: 1000ml sf 23:48 Follow up: Response: No adverse reaction sf 22:03 Drug: Viscous Lidocaine Liquid (4 %) 5 ml Route: Mucous Membrane; sf 22:57 Follow up: Response: No adverse reaction sf 22:03 Drug: Benadryl (diphenhydrAMINE) 5 ml Route: PO; sf 22:57 Follow up: Response: No adverse reaction sf 22:03 Drug: Maalox (aluminum hydroxide, magnesium hydroxide, simethicone) Suspension (200 sf mg-200 mg-20 mg/5 mL) 15 ml Route: PO; 22:57 Follow up: Response: No adverse reaction sf 22:57 Not Given (Medication not available): nystatin 363903 units PO once; swish and swallow sf Disposition: 02/11/21 23:53 Discharged to Home. Impression: Oral Candidiasis. - Condition is Stable. - Discharge Instructions: Thrush, Adult, [id number]. - Prescriptions for Nystatin 100,000 unit/mL Oral Suspension - take 20 milliliter by ORAL route every 6 hours for 7 days; 560 milliliter. - Medication Reconciliation Form, Thank You Letter, Antibiotic Education, Prescription Opioid Use form. - Follow up: Private Physician; When: 1 - 2 days; Reason: Worsening of condition, Recheck today's complaints, Continuance of care, Re-evaluation by your physician. - Problem is an ongoing problem. - Symptoms have improved. Signatures: Dispatcher [employer] EDMS Yanely Goldberg RN RN bb Pietro Douglas RN RN 1 Renato Hernandez MD MD 7 Beny Devries RN RN sf Corrections: (The following items were deleted from the chart) 02/12 00:29 02/11 23:53 02/11/2021 23:53 Discharged to Home. Impression: Oral Candidiasis. bb Condition is Stable. Forms are Medication Reconciliation Form, Thank You Letter, Antibiotic Education, Prescription Opioid Use. Follow up: Private Physician; When: 1 - 2 days; Reason: Worsening of condition, Recheck today's complaints, Continuance of care, Re-evaluation by your physician. Problem is an ongoing problem. Symptoms have improved. mh7
[2021-02-12 07:19] VITALS: BP 150/71; TEMP 97.9; O2SAT 99
== END 2021-02-12 00:29 | disposition home or self-care (01) ==
LOC: ER 19:14
DX: B37.0 Candidal stomatitis (principal); Z85.89 Personal history of malignant neoplasm of other organs and systems; E78.5 Hyperlipidemia, unspecified; Z79.82 Long term (current) use of aspirin; Z95.1 Presence of aortocoronary bypass graft
CPT/HCPCS: 85025; 80048; 36415; 85610; 80076; 85730; 96360; 99284; J7030; Q0163

== ENCOUNTER 2021-03-12 14:05 | Inpatient (IN) | payer MEDICARE ==
--- OUTSIDE RECORDS SUMMARY | 2021-03-12 14:10 | XMS REPORT | Continuity of Care Document ---
:1940 Author Organization [facility] t Address [address] [place] [address] Care Team Providers Name Role Phone Rubén Villalobos Attending Clinician Lauri Ruvalcaba Attending Clinician VISIT, [facility] Attending Clinician Unavailable Rubén Villalobos Admitting Clinician Lauri Ruvalcaba Admitting Clinician Problems Condition Condition Condition Status Onset Resolution Last Treating Co mments Source Name Details Category Date Date Treatment Clinician Date NEEDS Diagnosis Active 2021-03-10 Mem oria FEEDING 02-13 22:01:00 l TUBE/DR NEEDS 00:00: [place] REFERRAL FEEDING 00 TUBE/DR REFERRAL Active 02/13/2021 [facility] C00.9 - Diagnosis Active 2021-02-14 Me moria MALIGNANT 01-13 10:40:00 l NEOPLASM C00.9 - 00:01: Debora nn OF LIP, MALIGNANT 00 UNS NEOPLASM OF LIP, UNS Active 01/13/2021 BRETT Mendoza C76.0 - Diagnosis Active 2021-02-13 Me moria MALIGNANT 01-12 15:20:00 l NEOPLASM C76.0 - 00:01: Debora nn OF HEAD, MALIGNANT 00 FA C NEOPLASM OF HEAD, FA C Active 01/12/2021 BRETT Shay C09.9 Diagnosis Active 2021-02-14 Mem oria - 10:40:00 l C09.9 00:00: Jaspal 00 Active 01/12/2021 [facility] 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-12-25 Me moria MALIGNANT - 13:12:00 l NEOPLASM C76.0 - 00:01: Debora nn OF HEAD, 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, FA Active 8 BRETT Mendoza ORAL Diagnosis Active 2018-01-17 Mem oria CANCER, 1-24 11:47:00 l C06.9, ORAL 00:00: Jaspal C00.9 CANCER, 00 C06.9, C00.9 Active 12/11/2017 [facility] Coronary Problem Active 2021-02-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 07-06 21:50:43 l bypass Coronary 00:00: Kiran singh grafts x 2 artery 00 (procedure bypass ) grafts x 2 (procedure ) Active 07/06/2011 Problem 02/20/2021 Medical Group,[facility], BRETT Shay, BRETT Mendoza Postproced Problem 2018-04-16 M emoria ural 11:43:03 l hematoma [place] of skin Postproced and ural subcutaneo hematoma us tissue of skin following and other subcutaneo procedure us tissue following other procedure 04/16/2018 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 Paroxysmal Problem 2018-04-16 M emoria atrial 11:43:03 l fibrillati Kiran n on Paroxysmal atrial fibrillati on 04/16/2018 [facility] Essential Problem 2018-04-16 Me moria (primary) 11:43:03 l hypertensi Kiran n on Essential (primary) hypertensi on 04/16/2018 [facility] Hyperlipid Problem 2018-04-16 M emoria emia, 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 Kiran n d Hyperlipid emia, unspecifie d 04/16/2018 [facility] Gastro-eso Problem 2018-04-16 M emoria phageal 11:43:03 l reflux Jaspal disease Gastro-eso without phageal esophagiti reflux s disease without esophagiti s 04/16/2018 [facility] Presence Problem 2018-04-16 Mem oria of 11:43:03 l aortocoron Presence He rmann richie bypass of graft aortocoron richie bypass graft 04/16/2018 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, BRETT Shay Hyperlipid Problem Resolve 2021-02-20 Memoria emia d 21:50:43 l (disorder) Kiran n Hyperlipid emia (disorder) Resolved Problem 02/20/2021 Medical Group,[facility], BRETT Shay, [facility] [place] Malignant Problem Resolve 2021-02-20 M emoria tumor of d 21:50:43 l lip Jaspal (disorder) Malignant tumor of lip (disorder) Resolved Problem 02/20/2021 Medical Group,[facility], BRETT Shay, [facility] [place] Atrial Problem Active 2021-02-20 Memor ia fibrillati 21:50:43 l on Atrial Jaspal (disorder) fibrillati on (disorder) Active Problem 02/20/2021 Medical Group,[facility], BRETT Shay, [facility] [place] Dizziness Problem Active 2021-02-20 Me moria (finding) 21:50:43 l [place] Dizziness (finding) Active Problem 02/20/2021 Medical [facility], BRETT Shya,[facility] [place] Hypertensi Problem Active 2021-02-20 M emoria ve 21:50:43 l disorder, Jaspal systemic Hypertensi arterial ve (disorder) disorder, systemic arterial (disorder) Active Problem 02/20/2021 Medical Group,[facility], BRETT Shay, [facility] [place] Pain Problem Active 2021-02-20 Memor ia (finding) 21:50:43 l Pain [place] (finding) Active Problem 02/20/2021 [facility], BRETT Shay, [facility] [place] Arthritis Problem Active 2021-02-20 Me moria (disorder) 21:50:43 l [place] Arthritis (disorder) Active Problem 02/20/2021 back Medical Group,[facility], BRETT [place] OTHER Diagnosis Active 2021-03-10 Mem oria SPECIFIED 22:01:00 l EATING OTHER Jaspal DISORDER SPECIFIED EATING DISORDER Active 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 12/30/2017 04/02/2018 BRETT Mendoza Allergies, Adverse Reactions, Alerts Allergy Allergy Status Severity Reaction(s) Onset Inactive Treating Comm ents Source Name Type Date Date Clinician No Known No Known Active Memori a Medicati Medicati l on on Jaspal Allergie Allergie s s Social History Social Habit Start Date Stop Date Quantity Comments Source Social History 2021-02-14 2021-02-14 Berna jasso 09:46:31 09:46:31 Smoking Status Start Date Stop Date Source Social History 2017-12-31 13:34:58 2017-12-31 13:34:58 [facility] Medications Ordered Filled Start Stop Current Ordering Indication Dosage Frequency Signature Comments Components Source Medication Medication Date Date Medication? Clinician (SIG) Name Name Sodium No 1 gm, 1 Memoria Chloride 4-03 tab, l 1000 MG 22:00: Route: PO, Herm ciro Oral Tablet 00 Drug form: TAB, TID, Dosing Weight 50.284, kg, Start date: 02/18/21 17:00:00 CDT, Duration: 30 day, Stop date: 03/20/21 13:00:00 CDT, 0 ferrous Yes 325 mg = 1 Eric luzmaria fumarate 4-03 tab, PEG, l 325 mg oral 19:57: Daily, # He rmann tablet 00 60 tab, 2 Refill(s) Adult Yes 81 mg = 1 Memoria Aspirin 81 4-03 tab, PEG, l mg oral 19:55: Daily, # Kiran n tablet, 00 90 tab, 1 chewable Refill(s) ferrous Yes 325 mg = 1 Eric luzmaria sulfate 325 4-03 tab, PO, l MG Oral 19:54: Daily, # Kiran n Tablet 00 90 tab, 2 Refill(s) metoprolol Yes 25 mg = 1 Me moria tartrate 25 4-03 tab, PO, l mg oral 19:02: BID, # 28 Debora nn tablet 00 tab, 0 Refill(s) Nystatin Yes 500,000 Memori a 380358 02-18 unit = 5 l UNT/ML Oral 18:58: mL, Kiran n Suspension 00 S&SPIT, QID, X 14 day, # 280 mL, 0 Refill(s) Sodium Yes 1 gm = 1 Memoria Chloride -03 tab, PO, l 1000 MG 18:58: TID, # 90 Debora nn Oral Tablet 00 tab, 1 Refill(s) Miralax No Notes: Memoria 02-18 Dissolve l 15:59: in 8 oz of Jaspal 00 water or juice. (Same as: Miralax) PHOS-NaK No 1 packet, Eric luzmaria oral powder 02-18 Route: PO, l for 14:00: Dosing Jaspal reconstitut 00 Weight ion 50.284, kg, QID, Start date: 02/18/21 9:00:00 CDT, Duration: 30 day, Stop date: 03/19/21 21:00:00 CDT potassium No Notes: Memori a phosphate 02-18 (Same as: l 13:00: K Jaspal Phosphate) Infuse over 4 hour. Do not infuse phosphorou s concurrent ly in the same line as TPN or IVF that contains calcium. For double lumen central lines, phosphorou s may be infused in a separate lumen from TPN. Melatonin No Notes: Memori a - (Same as: l 02:00: Melatonin) Jaspal 00 Melatonin No Notes: Memori a 02-16 (Same as: l 23:55: Melatonin) Nystatin No Notes: Memoria 02-16 (Same l 18:00: as:Mycosta tin) Shake well. Calcium No 500 mL, Memoria Chloride 02-16 500 ml/hr, l 0.0014 17:06: Infuse [place] MEQ/ML / 00 Over: 1 Potassium hr, Route: Chloride IV, 500, 0.004 Drug form: MEQ/ML / INJ, ONCE, Sodium Priority: Chloride STAT, 0.103 Dosing MEQ/ML / Weight Sodium 50.284 kg, Lactate Start 0.028 date: MEQ/ML 02/16/21 Injectable 12:06:00 Solution CDT, Stop date: 02/16/21 12:06:00 CDT, 0 NS (Bolus) No 500 mL, Eric luzmaria IV 02-16 Rate: 500 l 17:00: ml/hr, Infuse over: 1 hr, Route: IV, Total Volume: 500, Start date: 02/16/21 12:00:00 CDT, Stop date: 02/16/21 12:00:00 CDT, 0 Magic No Notes: Memoria Mouthwash 02-16 Magic l (Benadryl/L 16:32: mouth wash Jaspal idocaine/Ma 00 contains:B alox/) enadryl/Li 1:1:1 docaine/Ma alox/) 1:1:1; total volume 5 ml Calcium No 500 mL, Memoria Chloride 02-16 500 ml/hr, l 0.0014 16:30: Infuse [place] MEQ/ML / 00 Over: 1 Potassium hr, Route: Chloride IV, ONCE, 0.004 Priority: MEQ/ML / STAT, Sodium Dosing Chloride Weight 0.103 50.284 kg, MEQ/ML / Start Sodium date: Lactate 02/16/21 0.028 11:30:00 MEQ/ML CDT, Stop Injectable date: Solution 02/16/21 11:30:00 CDT Miralax No Notes: Memoria 02-16 Dissolve l 16:30: in 8 oz of water or juice. (Same as: Miralax) Kayexalate No Notes: Memor ia 4-01 (sodium l 15:09: polystyren e sulfonate 15 gm/60 ml SHANTELL) Shake well before use. (Same as: Kayexalate , SPS) Aspirin No 81 mg, 1 Memori a 3-31 tab, l 22:00: Route: PEG, Drug form: [place], Q-M-W-F, Start date: 02/15/21 17:00:00 CDT, Duration: 30 day, Stop date: 03/17/21 9:00:00 CDT, 0 Fluconazole No Notes: Eric luzmaria 3-31 (Same as: l 03:00: Diflucan) Hazardous Drug Group 3:Reproduc tive risk Hazardous Drug -- Refer to safe handling procedure PPE Matrix succinylcho No Route: IV, Memoria line (ANES) 330 Drug form: l 17:41: INJ, ONCE, Stop date: 02/14/21 12:41:00 CDT ondansetron No Route: IV, Memoria (ANES) 3-30 Drug form: l 17:41: INJ, ONCE, Stop date: 02/14/21 12:41:00 CDT sugammadex No Route: IV, M emoria (ANES) 3-30 Drug form: l 17:41: SOLN, ONCE, Stop date: 02/14/21 12:41:00 CDT Acetaminoph No Notes: Eric luzmaria en 3-30 Infuse l 17:38: over 15 minutes Do not exceed 4gm/day of acetaminop hen MEDICATION WASTE Product Size: 1000 mg Product Wasted: ___ mg Hydromorpho No Notes: Eric luzmaria ne 3-30 Same as l 17:38: Dilaudid Flumazenil No Notes: Memor ia 3-30 (Same as: l 17:38: Romazicon) Naloxone No Notes: Memoria 3-30 Same as l 17:38: Narcan Jaspal 00 Ondansetron No Notes: Eric luzmaria 3-30 (Same as: l 17:38: Zofran) [place] MEDICATION WASTE Product Size: 4 mg Product Wasted: ___ mg phenol 6 Yes USE BEFORE Mem oria MG/ML 3-30 MEALS, 0 l Mouthwash 17:11: Refill(s) Her teodora [Ulcerease] 00 niacin 500 Yes 500 mg = 1 M emoria mg oral 3-30 tab, PO, l tablet 17:09: Daily, 0 Jaspal 00 Refill(s) Centrum Yes 1 tab, PO, Eric luzmaria Men's 3-30 Daily, 0 l 17:08: Refill(s) [place] 00 Ipratropium Yes 2 spray, Me moria Agenda 3-30 NASAL, l 0.042 17:06: TID, 0 [place] MG/ACTUAT 00 Refill(s) Metered Dose Nasal [place] Melatonin 5 Yes 2.5 mg = Me moria mg oral 3-30 0.5 tab, l tablet 17:06: PO, Jaspal 00 Bedtime, PRN for insomnia Ibuprofen Yes 200 mg = 1 Me moria 200 MG Oral 3-30 tab, PO, l Tablet 17:05: BID, 0 Jaspal 00 Refill(s) gabapentin Yes 300 mg = 1 M emoria 300 MG Oral 3-30 cap, PO, l Capsule 17:04: TID, PRN Kiran n 00 PAIN, # 63 cap, 0 Refill(s) Fexofenadin Yes 180 mg = 1 Memoria e 3-30 tab, PO, l hydrochlori 17:03: QAM, 0 Herm ciro de 180 MG 00 Refill(s) Oral Tablet [Yesi] ferrous Yes 325 mg = 1 Eric luzmaria sulfate 325 3-30 tab, PO, l mg oral 17:02: Daily, 0 Kiran n enteric 00 Refill(s) coated tablet Aspirin 81 Yes PO, TAKE 1 M emoria MG Enteric 3-30 TAB ORALLY l Coated 17:01: 3 TIMES Jaspal Tablet 00 WER WEEK Vitamin D3 Yes 5,000 Memori a 5000 intl 3-30 IntlUnit = l units oral 17:00: 1 tab, PO, H ermann tablet 00 QAM, 0 Refill(s) Saw Yes = 2 cap, Memoria [place] 3-30 PO, Daily, l 450 mg oral 16:59: 0 Kiran n capsule 00 Refill(s) Acetaminoph No 1 tab, PO, Memoria en 325 MG / 3-30 Q6H, PRN l Hydrocodone 16:57: PAIN, # 40 Jaspal Bitartrate 00 tab, 0 5 MG Oral Refill(s) Tablet [Bracey 5/325] Magic No 10 mL, PO, Memori a Mouthwash 3-30 BID, PRN l (Benadryl/L 16:56: MOUTH Debora nn idocaine/Ma 00 PAIN, # 99 alox/) mL, 0 1:1:1 Refill(s) Fluticasone Yes 1 spray, Me moria propionate 330 NASAL, l 0.05 16:55: Bedtime, # Jaspal MG/ACTUAT 00 32 gm, 0 Metered Refill(s) Dose Nasal [place] [Flonase] phenylephri No Route: IV, Memoria ne (ANES) 02-14 Drug form: l 16:51: INJ, ONCE, Jaspal 00 Stop date: 02/14/21 11:51:00 CDT CoQ10 Yes 100 mg, Memoria 3-30 PO, Daily, l 16:49: 0 [place] Refill(s) diphenhydrA Yes 12.5 mg = M emoria MINE 25 mg 3-30 0.5 tab, l oral tablet 16:48: PO, Kiran n 00 Bedtime, 0 Refill(s) metoprolol No Route: IV, M emoria (ANES) 02-14 Drug form: l 16:46: INJ, ONCE, Jaspal 00 Stop date: 02/14/21 11:46:00 CDT rocuronium No Route: IV, M emoria (ANES) 3-30 Drug form: l 16:41: INJ, ONCE, Stop date: 02/14/21 11:41:00 CDT lidocaine No Route: IV, Me moria (ANES) 3-30 Drug form: l 16:35: INJ, ONCE, Stop date: 02/14/21 11:35:00 CDT propofol No Route: IV, Mem oria (ANES) 3-30 Drug form: l 16:35: INJ, ONCE, Stop date: 02/14/21 11:35:00 CDT fentaNYL No Route: IV, Mem oria (ANES) 3-30 Drug form: l 16:35: INJ, ONCE, Stop date: 02/14/21 11:35:00 CDT ceFAZolin No Route: IV, Me moria (ANES) 3-30 Drug form: l 16:35: INJ, ONCE, Stop date: 02/14/21 11:35:00 CDT Lactated No Route: IV, Mem oria Ringers 3-30 Total l Injection 15:39: Volume: Debora nn IV (ANES) 00 1,000, 1000 mL Start date: 02/14/21 10:39:00 CDT, Stop date: 02/14/21 11:39:00 CDT Aspirin No Notes: Do Memor ia 3-30 not crush l 14:00: or chew. [place] 00 (Same As: Ecotrin) Fluticasone No Notes: Eric luzmaria propionate 3-30 (Same as: l 0.05 14:00: Flonase) [place] MG/ACTUAT 00 Metered Dose Nasal [place] [Flonase] Ipratropium No 84 Memori a Agenda 3-30 microgram, l 0.042 14:00: 2 spray, Jaspal MG/ACTUAT 00 Route: Metered NASAL, Dose Nasal Drug Form: [place] SPRY, Dosing Weight 53.636, kg, Daily, Start date: 02/14/21 9:00:00 CDT, Duration: 30 day, Stop date: 03/15/21 9:00:00 CDT Fluconazole No Notes: Eric luzmaria 3-30 (Same as: l 03:00: Diflucan) [facility]ous [facility] Group 3:Reproduc tive risk Hazardous Drug -- Refer to safe handling procedure PPE Matrix Simvastatin No Notes: Eric luzmaria 3-30 (Same as: l 02:00: Zocor) Melatonin No Notes: Memori a 3-30 (Same as: l 02:00: Melatonin) Magic No 5 mL, BID, Memori a Mouthwash 3-30 0 l (Benadryl/L 01:54: Refill(s) H ermann idocaine/Ma 00 alox/) 1:1:1 Nystatin No 2,000,000 Eric luzmaria [id number] 3-30 unit = 20 l UNT/ML Oral 01:53: mL, PO, Her araiza Suspension 00 Q6H, Swish and Swallow, # 200 mL, 0 Refill(s) Saw No 0 Memoria [place] 3-30 Refill(s) l 01:52: [place] 00 Ibuprofen No 200 mg, Memor ia 3-30 BID, 0 l 01:52: Refill(s) Acetaminoph No 1 tab, PO, Memoria en 325 MG / 3-30 Q6H, PRN l Hydrocodone 01:51: Pain, # 60 [place] Bitartrate 00 tab, 0 5 MG Oral Refill(s) Tablet Acetaminoph No 1 tab, PO, Memoria en 300 MG / 3-30 Q6H, PRN l Codeine 01:51: pain, # 28 Herm ciro Phosphate 00 tab, 0 30 MG Oral Refill(s) Tablet cyclobenzap No 10 mg = 1 M emoria rine 10 mg 3-30 tab, PO, l oral tablet 01:50: TID, PRN He ann 00 for spasms, # 30 tab, 0 Refill(s) tramadol Yes 50 mg = 1 Eric luzmaria hydrochlori 3-30 tab, PO, l de 50 MG 01:50: Q6H, PRN Debora nn Oral Tablet 00 Pain, # 40 tab, 0 Refill(s) gabapentin No 300 mg = 1 M emoria 300 MG Oral 3-30 cap, PO, l Capsule 01:49: TID, PRN Kiran n Pain Score 1-3, # 90 cap, 0 Refill(s) Tylenol No Notes: Max Eric luzmaria 3-29 acetaminop l 23:00: hen = [place] 00 4000mg/day (4 gm/day). (Same as: Tylenol) gabapentin No Notes: Memor ia 300 MG Oral 02-13 (Same as: l Capsule 22:00: Neurontin) metoprolol No Notes: Memor ia tartrate 02-13 (Same as: l 22:00: Lopressor) montelukast No Notes: Eric luzmaria - (Same l 22:00: as:Singula ir) Enoxaparin No Notes: Memor ia - (Same as: l 21:00: Lovenox) Acetaminoph No Notes: Do M emoria en 325 MG / - not exceed l Hydrocodone 20:21: 4gm/day of Jaspal Bitartrate 00 acetaminop 10 MG Oral hen. Tablet (Same as: [Bracey Bracey 10/325] 325/10) tramadol No Notes: Not Mem oria hydrochlori 02-13 to exceed l de 50 MG 20:20: 400mg/day. Her araiza Oral Tablet 00 (Same As: Ultram) Morphine No 4 mg, Memoria 02-13 Route: l 19:08: IVP, ONCE, Dosing Weight 53.636, kg, Priority: STAT, Start date: 02/13/21 14:08:00 CDT, Stop date: 02/13/21 14:08:00 CDT Ondansetron No 4 mg, Memor ia 02-13 Route: l 19:08: IVP, Drug form: INJ, ONCE, Dosing Weight 53.636, kg, Priority: STAT, Start date: 02/13/21 14:08:00 CDT, Stop date: 02/13/21 14:08:00 CDT Calcium 2021-0 No 1,000 mL, Memor ia Chloride 01-18 Rate: 125 l 0.0014 16:10: ml/hr, [place] MEQ/ML / 00 Infuse Potassium over: 8 Chloride hr, Route: 0.004 IV, Dosing MEQ/ML / Weight Sodium 55.1 kg, Chloride Total 0.103 Volume: MEQ/ML / 1,000, Sodium Start Lactate date: 0.028 01/18/21 MEQ/ML 10:10:00 Injectable CERTIFIED NURSES' AIDE, Solution Duration: 30 day, Stop date: 02/17/21 10:09:00 CDT, 1.61, m2 Hydralazine 1-0 No 10 mg, Eric luzmaria 01-18 Route: l 16:10: IVP, Jaspal 00 Q20Min, Dosing Weight 55.1, kg, PRN Elevated BP, Start date: 01/18/21 10:10:00 CERTIFIED NURSES' AIDE, Duration: 2 doses or times, Stop date: Limited # of times Acetaminoph 1-0 No 1,000 mg, M emoria en 01-18 Route: PO, l 16:10: Drug form: Jaspal 00 TAB, ONCE, Dosing Weight 55.1, kg, PRN Pain Score 1-3, Start date: 01/18/21 10:10:00 CERTIFIED NURSES' AIDE Oxycodone 1-0 No 5 mg, Memoria Hydrochlori 01-18 Route: PO, l de 5 MG 16:10: Drug form: Herm ciro Oral Tablet 00 TAB, Q4H, Dosing Weight 55.1, kg, PRN Pain Score 4-6, Start date: 01/18/21 10:10:00 CERTIFIED NURSES' AIDE, Duration: 30 day, Stop date: 02/17/21 10:09:00 CDT Morphine 1-0 No 2 mg, Memoria 3-03 Route: l 16:10: IVP, Jaspal 00 Q5Min, Dosing Weight 55.1, kg, PRN Pain Score 4-6, Start date: 01/18/21 10:10:00 CERTIFIED NURSES' AIDE, Duration: 5 doses or times, Stop date: Limited # of times Fentanyl 2020-0 No 25 Memoria 3-03 microgram, l 16:10: Route: [place] 00 IVP, Q5Min, Dosing Weight 55.1, kg, PRN Pain Score 4-6, Priority: Routine, Start date: 01/18/21 10:10:00 CERTIFIED NURSES' AIDE, Duration: 4 doses or times, Stop date: Limited # of times Hydromorpho 2020-0 No 0.5 mg, Mem oria ne 01-18 Route: l 16:10: IVP, [place] 00 Q5Min, Dosing Weight 55.1, kg, PRN Pain Score 7-10, Start date: 01/18/21 10:10:00 CERTIFIED NURSES' AIDE, Duration: 4 doses or times, Stop date: Limited # of times Flumazenil 2020-0 No 0.2 mg, Eric luzmaria 01-18 Route: l 16:10: IVP, PRN, [place] 00 Dosing Weight 55.1, kg, PRN Benzodiaze pine Reversal, Initial dose, Start date: 01/18/21 10:10:00 CERTIFIED NURSES' AIDE, Duration: 30 day, Stop date: 02/17/21 11:09:00 CDT Naloxone 2020-0 No 0.4 mg, Memori a 01-18 Route: l 16:10: IVP, [place] 00 Q2MIN, Dosing Weight 55.1, kg, PRN Narcotic Reversal, Start date: 01/18/21 10:10:00 CERTIFIED NURSES' AIDE, Duration: 8 doses or times, Stop date: Limited # of times Ephedrine 2020-0 No 5 mg, Memoria 01-18 Route: l 16:10: IVP, [place] 00 Q5Min, Dosing Weight 55.1, kg, PRN Low Blood Pressure, Start date: 01/18/21 10:10:00 CERTIFIED NURSES' AIDE, Duration: 30 day, Stop date: 02/17/21 11:09:00 CDT Albuterol 1-0 No 2.49 mg, Eric luzmaria 0.83 MG/ML 01-18 Route: l Inhalant 16:10: NEB, Jaspal Solution 00 Q20Min, Dosing Weight 55.1, kg, PRN Wheezing, Start date: 01/18/21 10:10:00 CERTIFIED NURSES' AIDE, Duration: 30 day, Stop date: 02/17/21 11:09:00 CDT Diphenhydra 1-0 No 12.5 mg, Me moria mine 01-18 Route: l 16:10: IVP, Drug [place] 00 form: INJ, Q6H, Dosing Weight 55.1, kg, PRN Itching, Start date: 01/18/21 10:10:00 CERTIFIED NURSES' AIDE, Duration: 30 day, Stop date: 02/17/21 10:09:00 CDT Meperidine 1-0 No 12.5 mg, Mem oria 3-03 Route: l 16:10: IVP, Jaspal 00 Q30Min, Dosing Weight 55.1, kg, PRN Other -See Comment, For shivering, Start date: 01/18/21 10:10:00 CERTIFIED NURSES' AIDE, Duration: 2 doses or times, Stop date: Limited # of times Ondansetron 1-0 No 4 mg, Memor ia 3-03 Route: l 16:10: IVP, ONCE, [place] 00 Dosing Weight 55.1, kg, PRN Nausea & Vomiting, Start date: 01/18/21 10:10:00 CERTIFIED NURSES' AIDE Promethazin 1-0 No 6.25 mg, Me moria e 3-03 Route: l 16:10: IVPB, Jaspal 00 ONCE, Dosing Weight 55.1, kg, PRN Nausea & Vomiting, Start date: 01/18/21 10:10:00 CERTIFIED NURSES' AIDE Midazolam 1-0 No 1 mg, Memoria 3-03 Route: l 16:10: IVP, Jaspal 00 Q5Min, Dosing Weight 55.1, kg, PRN Anxiety, Start date: 01/18/21 10:10:00 CERTIFIED NURSES' AIDE, Duration: 2 doses or times, Stop date: Limited # of times Hydralazine 1-0 No 10 mg, Eric luzmaria 3-03 Route: l 16:06: IVP, [place] 00 Q20Min, Dosing Weight 55.1, kg, PRN Elevated BP, Start date: 01/18/21 10:06:00 CERTIFIED NURSES' AIDE, Duration: 2 doses or times, Stop date: Limited # of times Labetalol 1-0 No 10 mg, Memori a 3-03 Route: l 16:06: IVP, Jaspal 00 Q5Min, Dosing Weight 55.1, kg, PRN Elevated BP, Start date: 01/18/21 10:06:00 CERTIFIED NURSES' AIDE, Duration: 5 doses or times, Stop date: Limited # of times Acetaminoph 1-0 No 1,000 mg, M emoria en 3-03 Route: PO, l 16:06: Drug form: Jaspal 00 TAB, ONCE, Dosing Weight 55.1, kg, PRN Pain Score 1-3, Start date: 01/18/21 10:06:00 CERTIFIED NURSES' AIDE Oxycodone 1-0 No 5 mg, Memoria Hydrochlori -03 Route: PO, l de 5 MG 16:06: Drug form: Herm ciro Oral Tablet 00 TAB, Q4H, Dosing Weight 55.1, kg, PRN Pain Score 4-6, Start date: 01/18/21 10:06:00 CERTIFIED NURSES' AIDE, Duration: 30 day, Stop date: 02/17/21 10:05:00 CDT Fentanyl 2020-0 No 25 Memoria 3-03 microgram, l 16:06: Route: [place] 00 IVP, Q5Min, Dosing Weight 55.1, kg, PRN Pain Score 4-6, Priority: Routine, Start date: 01/18/21 10:06:00 CERTIFIED NURSES' AIDE, Duration: 4 doses or times, Stop date: Limited # of times Hydromorpho 2020-0 No 0.5 mg, Mem oria ne 01-18 Route: l 16:06: IVP, Jaspal 00 Q5Min, Dosing Weight 55.1, kg, PRN Pain Score 7-10, Start date: 01/18/21 10:06:00 CERTIFIED NURSES' AIDE, Duration: 4 doses or times, Stop date: Limited # of times Flumazenil 2020-0 No 0.2 mg, Eric luzmaria 01-18 Route: l 16:06: IVP, PRN, Jaspal 00 Dosing Weight 55.1, kg, PRN Benzodiaze pine Reversal, Initial dose, Start date: 01/18/21 10:06:00 CERTIFIED NURSES' AIDE, Duration: 30 day, Stop date: 02/17/21 11:05:00 CDT Naloxone 2020-0 No 0.4 mg, Memori a 01-18 Route: l 16:06: IVP, Jaspal 00 Q2MIN, Dosing Weight 55.1, kg, PRN Narcotic Reversal, Start date: 01/18/21 10:06:00 CERTIFIED NURSES' AIDE, Duration: 8 doses or times, Stop date: Limited # of times Ondansetron 2020-0 No 4 mg, Memor ia 3 Route: l 16:06: IVP, ONCE, Dosing Weight 55.1, kg, PRN Nausea & Vomiting, Start date: 01/18/21 10:06:00 CERTIFIED NURSES' AIDE Promethazin No 6.25 mg, Me moria e 01-18 Route: l 16:06: IVPB, ONCE, Dosing Weight 55.1, kg, PRN Nausea & Vomiting, Start date: 01/18/21 10:06:00 CERTIFIED NURSES' AIDE ondansetron No Route: IV, Memoria (ANES) 01-18 Drug form: l 16:04: INJ, ONCE, Stop date: 01/18/21 10:04:00 CERTIFIED NURSES' AIDE dexamethaso No Route: IV, Memoria ne (ANES) 01-18 Drug form: l 16:04: INJ, ONCE, Stop date: 01/18/21 10:04:00 CERTIFIED NURSES' AIDE sugammadex No Route: IV, M emoria (ANES) 01-18 Drug form: l 16:04: SOLN, ONCE, Stop date: 01/18/21 10:04:00 CERTIFIED NURSES' AIDE lidocaine No Route: IV, Me moria (ANES) 01-18 Drug form: l 15:42: INJ, ONCE, Stop date: 01/18/21 9:42:00 CERTIFIED NURSES' AIDE propofol No Route: IV, Mem oria (ANES) 01-18 Drug form: l 15:42: INJ, ONCE, Stop date: 01/18/21 9:42:00 CERTIFIED NURSES' AIDE rocuronium No Route: IV, M emoria (ANES) 01-18 Drug form: l 15:42: INJ, ONCE, Stop date: 01/18/21 9:42:00 CERTIFIED NURSES' AIDE fentaNYL No Route: IV, Mem oria (ANES) 01-18 Drug form: l 15:42: INJ, ONCE, Stop date: 01/18/21 9:42:00 CERTIFIED NURSES' AIDE Lactated No Route: IV, Mem oria Ringers 01-18 Total l Injection 15:00: Volume: Debora nn IV (ANES) 00 1,000, 1000 mL Start date: 01/18/21 9:00:00 CERTIFIED NURSES' AIDE, Stop date: 01/18/21 10:00:00 CERTIFIED NURSES' AIDE Isolyte S No 1,000 mL, Mem oria PH 7.4 1000 01-18 Rate: 75 l mL 13:43: ml/hr, Infuse over: 13.3 hr, Route: IV, Dosing Weight 54.091 kg, Total Volume: 1,000, Start date: 01/18/21 7:43:00 CERTIFIED NURSES' AIDE, Duration: 30 day, Stop date: 02/17/21 7:42:00 CDT, 1.61, m2 Acetaminoph No 1,000 mg, M emoria en 01-18 Route: PO, l 13:43: Drug form: TAB, PRE OP, Dosing Weight 54.091, kg, Priority: NOW, Start date: 01/18/21 7:43:00 CERTIFIED NURSES' AIDE, Duration: 1 doses or times Benadryl Yes Bedtime, 0 Mem oria 01-16 Refill(s) l 16:22: montelukast Yes 10 mg = 1 M emoria 10 mg oral 01-16 tab, PO, l tablet 16:21: QPM, 0 Refill(s) Melatonin Yes Bedtime, 0 Me moria - Refill(s) l 16:21: Aspirin Yes 81 mg, PO, Eric luzmaria 2- Daily, 0 l 20:56: Refill(s) Ipratropium Yes 2 spray, Me moria Agenda 2- NASAL, l 0.042 20:54: Daily, 0 Jaspal MG/ACTUAT 00 Refill(s) Metered Dose Nasal [place] non-formula Yes Refill(s) M emoria ry 2- 0 l 20:51: Vitamin B6 Yes 25 mg = 1 Me moria 25 mg oral 2-26 tab, PO, l tablet 20:49: Daily, 0 Refill(s) ferrous 0 Yes PO, Daily, Eric luzmaria sulfate - 0 l 20:48: Refill(s) Jaspal Niacin Yes PO, Daily, Memor ia 2-26 0 l 20:48: Refill(s) [place] 00 Vitamin D3 Yes PO, BID, 0 M emoria 2000 intl 2-26 Refill(s) l units oral 20:47: Jaspal tablet 00 Co-Q10 Yes PO, Daily, Memor ia 2-26 0 l 20:46: Refill(s) Jaspal non-formula Yes Refill(s) M emoria ry 2-26 0 l 20:46: [place] Niacin Yes PO, Daily, Memor ia 2-26 0 l 20:45: Refill(s) Jaspal non-formula Yes Refill(s) M emoria ry 2-26 0 l 20:45: [place] metoprolol Yes 25 mg = 1 Me moria tartrate 25 2-26 tab, PO, l mg oral 20:44: BID, 0 Jaspal tablet 00 Refill(s) tramadol No 50 mg, PO, Mem oria hydrochlori 2-21 Q4-6H, PRN l de 50 MG 19:06: Pain, X 7 Herm ciro Oral Tablet 00 day, # 30 tab, 0 Refill(s) senna 8.8 No 17.6 mg = Mem oria mg/5 mL 2-21 10 mL, NG, l oral syrup 19:06: Daily, X Her araiza 00 14 day, # 140 mL, 0 Refill(s) gabapentin Yes 300 mg = 1 M emoria 300 MG Oral 2-21 cap, PO, l Capsule 19:06: TID, # 42 Debora nn 00 cap, 0 Refill(s) Aspirin 81 Yes 324 mg = 4 M emoria MG Chewable 2-21 tab, DHT, l Tablet 19:06: Daily, # Jaspal 00 120 tab, 0 Refill(s) Morphine No Notes: Memoria 2-20 (Same l 02:42: as:MORPhin Jaspal 00 e Sulfate) metoprolol No Notes: Memor ia tartrate 2-19 (Same as: l 23:00: Lopressor) [place] 00 For oral use only. Refrigerat e. Shake well. Compound ed Product - formulatio n not commercial ly available* * Fentanyl 2017- No 50 Memoria 2-19 microgram, l 21:58: Route: IV, Jaspal 00 ONCE, Dosing Weight 76.364, kg, Start date: 01/06/18 15:58:00 CERTIFIED NURSES' AIDE, Stop date: 01/06/18 15:58:00 CERTIFIED NURSES' AIDE Versed 0 No 1 mg, Memoria 2-19 Route: IV, l 21:58: ONCE, Dosing Weight 76.364, kg, Start date: 01/06/18 15:58:00 CERTIFIED NURSES' AIDE, Stop date: 01/06/18 15:58:00 CERTIFIED NURSES' AIDE Versed 0 No 1 mg, Memoria 2-19 Route: IV, l 21:40: ONCE, Dosing Weight 76.364, kg, Start date: 01/06/18 15:40:00 CERTIFIED NURSES' AIDE, Stop date: 01/06/18 15:40:00 CERTIFIED NURSES' AIDE Fentanyl No 50 Memoria 2-19 microgram, l 21:40: Route: IV, Jaspal 00 ONCE, Dosing Weight 76.364, kg, Start date: 01/06/18 15:40:00 CERTIFIED NURSES' AIDE, Stop date: 01/06/18 15:40:00 CERTIFIED NURSES' AIDE Glucagon 0 No 1 mg, Memoria 2-19 Route: IV, l 21:38: ONCE, Dosing Weight 76.364, kg, Start date: 01/06/18 15:38:00 CERTIFIED NURSES' AIDE, Stop date: 01/06/18 15:38:00 CERTIFIED NURSES' AIDE hydrocortis No Notes: Eric luzmaria one 2.5% 2-19 (Same as: l rectal 17:37: Anusol-HC, Debora nn cream with 00 Proctosol- applicator HC) hydrocortis 0 No Notes: Eric luzmaria one 25 mg 2-19 (Same as: l rectal 17:36: Anusol-HC, Debora nn suppository 00 Hemorrhoid al HC) Melatonin No 3 mg, 3 Memor ia 2-19 mL, Route: l 03:00: DHT, Drug form: LIQ, Bedtime, Dosing Weight 76.364, kg, Start date: 01/05/18 21:00:00 CERTIFIED NURSES' AIDE, Duration: 30 day, Stop date: 02/03/18 21:00:00 CDT tramadol No Notes: Not Mem oria hydrochlori -19 to exceed l de 50 MG 01:56: 400mg/day. Her araiza Oral Tablet 00 (Same As: Ultram) sennosides, No Notes: Eric luzmaria PENITENTIARY 2-17 (Same as: l 15:00: Senokot) Docusate No Notes: Memoria 2-17 (Same as: l 15:00: Colace) Protonix No 40 mg, Memoria 2-16 Route: l 15:00: IVP, [place] 00 Daily, Dosing Weight 76.364, kg, Patient is NPO, Start date: 01/03/18 9:00:00 CERTIFIED NURSES' AIDE, Duration: 30 day, Stop date: 02/01/18 9:00:00 CDT Sodium No 250 mL, Memoria Chloride 2-16 Rate: To l 0.9% 14:11: prime line [place] (titrate) 00 and flush 250 mL remaining blood products., Dosing Weight 76.364, kg, Route: IV, Total Volume: 250, Start Date: 01/03/18 8:11:00 CERTIFIED NURSES' AIDE, Duration: 30 day, Stop date: 02/02/18 8:10:00 CDT, Replace Every: 24 hr Acetaminoph No Notes: Max Memoria en 2-16 acetaminop l 14:00: hen = [place] 00 4000mg/day (4 gm/day). (Same as: Tylenol) heparin No 5,000 Memoria 2-16 unit, l 03:00: Route: Jaspal 00 SUB-Q, Q12H, Dosing Weight 76.364, kg, Start date: 01/02/18 21:00:00 CERTIFIED NURSES' AIDE, Duration: 30 day, Stop date: 02/01/18 9:00:00 CDT Metamucil No Notes: Memori a 2-15 (Same as: l 20:55: Metamucil) Mix in 8 oz liquid with meal. potassium No Notes: Memori a phosphate-s 2-15 (Same as: l odium 15:47: Phos-NaK) Jaspal phosphate 00 Each 1.5 250 mg-280 gm pkt has mg-160 mg 250mg oral powder phosphorou for s. Mix reconstitut w/2.5oz ion water and stir. Beneprotein No Notes: Eric luzmaria 7 gm pkt 2-15 (Same as: l 15:00: Beneprotei Jaspal 00 n) Oxycodone No Notes: Memori a Hydrochlori 2-15 (Same as: l de 1 MG/ML 14:20: 'Roxicodon H ermann Oral 00 e) Solution Insulin No 60 Memoria regular 2-15 units) l 13:53: WASTE: F/P - Black; E - Municipal Trash Bin Stable for 28 days at room temperatur e Expires in days from ____Date Hydromorpho No Notes: Eric luzmaria ne 2-15 (Same as: l 13:41: Dilaudid) conc = 0.5 mg/ml Hydromorph one TITLE CHECKER Dose: ;Delay: ;Basal: Calcium No Notes: Memoria Gluconate 2-15 WASTE: F/P l 13:25: - Sink; E - Municipal Trash Bin Simvastatin No Notes: Eric luzmaria 2-15 (Same as: l 03:00: Zocor) aspirin 81 No Notes: Memor ia mg tablet, 2-14 Take with l chewable 18:35: food. ocular No Notes: Memoria lubricant 2-14 (Same as: l 18:00: Lacri-Lube 00 , Duratears Naturale, Artificial Tears, and Tears Again ) Tramadol No Notes: Not Mem oria 2-14 to exceed l 18:00: 400mg/day. Jaspal 00 (Same As: Ultram) Miralax No Notes: Memoria 2-14 Dissolve l 16:50: in 8 oz of water or juice. (Same as: Miralax) multivitami No Notes: Eric luzmaria n with 2-14 Adult dose l minerals 15:00: = 15ML Take with food. (Same As: Centrum, Certagen) WASTE: F/P - Black; E - Municipal Trash Bin chlorhexidi No Notes: Eric luzmaria ne 2-14 (Same As: l gluconate 15:00: Peridex) Herm ciro 1.2 MG/ML 00 Mouthwash metoprolol No Notes: Memor ia tartrate 2-14 (Same as: l 15:00: Lopressor) Aspirin No Notes: Memoria 2-14 Take with l 15:00: food. sennosides, No Notes: Eric luzmaria PENITENTIARY 2-14 (Same as: l 15:00: Senokot) Docusate No Notes: Memoria 2-14 (Same as: l 15:00: Colace) 24 HR No 50 mg, 1 Memoria Metoprolol 2-14 tab, l Tartrate 50 15:00: Route: PO, Jaspal MG Extended 00 Drug form: Release ERTAB, Tablet Daily, [Toprol] Start date: 01/01/18 9:00:00 CERTIFIED NURSES' AIDE, Duration: 30 day, Stop date: 01/30/18 9:00:00 CDT Aspirin 81 No Notes: Memor ia MG Chewable 2-14 Take with l Tablet 15:00: food. Zofran No Notes: Memoria 2-14 (Same as: l 14:07: Zofran) MEDICATION WASTE Product Size: 4 mg Product Wasted: ___ mg Albuterol No Notes: Memori a 0.833 MG/ML 2-14 (Same as: l 14:04: Duoneb) Ipratropium 00 Agenda 0.167 MG/ML Inhalant Solution [DuoNeb] Acetaminoph No Notes: Max Memoria en 2-14 acetaminop l 14:00: hen = 4000mg/day (4 gm/day). (Same as: Tylenol) Unasyn No Notes: Memoria 2-14 Dosing l 14:00: based on Ampicillin component (Same as: Unasyn) Calcium No Notes: Memoria Carbonate 2-14 (Same As: l 500 MG 13:37: Tums) [place] Chewable 00 Calcium Tablet Carbonate 500 mg = 200 mg elemental calcium Dose = mg calcium carbonate ( mg elemental calcium) potassium No Notes: Memori a phosphate-s 2-14 (Same as: l odium 13:37: Phos-NaK) [place] phosphate 00 Each 1.5 250 mg-280 gm pkt has mg-160 mg 250mg oral powder phosphorou for s. Mix reconstitut w/2.5oz ion water and stir. Magnesium No Notes: Memori a Sulfate 2-14 WASTE: F/P l 13:37: - Sink; E - Municipal Trash Bin Magnesium No Notes: Memori a Oxide 2-14 (Same as: l 13:37: Mag-Ox [place] 00 400) Magnesium oxide 274tk=630o g elemental magnesium Dose=____m g magnesium oxide (___mg elemental magnesium) Calcium No Notes: Memoria Gluconate 2-14 WASTE: F/P l 13:37: - Sink; E - Municipal Trash Bin sodium No 15 mmol, 5 Memor ia phosphate 2-14 mL, Route: l 13:37: IVPB, PRN, Jaspal 00 Dosing Weight 76.364, kg, PRN Abnormal Lab Result, Start date: 01/01/18 7:37:00 CERTIFIED NURSES' AIDE, Duration: 30 day, Stop date: 01/31/18 8:36:00 CDT, FOR ICU USE ONLY Potassium No Notes: Memori a Chloride 2-14 (Same as: l 13:37: Potassium Chloride) potassium No Notes: Memori a phosphate 2-14 (Same as: l 13:37: K Phosphate. ) 1 mMol phoshate has 1.47 mEq potassium Infuse over 4 hours lansoprazol No Notes: Eric luzmaria e 2-14 Take 1 l 13:35: hour Jaspal 00 before or 2 hours after meal; Expires in 14 days. Shake well before use. (Same as:Prevaci d) Compound ed Product - formulatio n not commercial ly available* * simvastatin Yes 40 mg = 1 M emoria 40 mg oral 2-14 tab, PO, l tablet 13:33: Bedtime, 0 Debora Refill(s) Insulin No 60 Memoria regular 2-14 units) l 13:26: WASTE: F/P [place] - Black; E - Municipal Trash Bin Stable for 28 days at room temperatur e Expires in days from ____Date Dextrose No 25 gm, 50 Eric luzmaria 50% Syringe 2-14 mL, Route: l 13:26: IVP, Drug Form: INJ, Dosing Weight 76.364, kg, PRN, PRN Blood Glucose Results, Start date: 01/01/18 7:26:00 CERTIFIED NURSES' AIDE, Duration: 30 day, Stop date: 01/31/18 8:25:00 CDT Glucagon No 1 mg, Memoria 2-14 Route: IM, l 13:26: Drug form: PDR/INJ, PRN, Dosing Weight 76.364, kg, PRN Blood Glucose Results, Start date: 01/01/18 7:26:00 CERTIFIED NURSES' AIDE, Duration: 30 day, Stop date: 01/31/18 8:25:00 CDT Hydromorpho No Notes: Eric luzmaria ne 2-14 (Same as: l 13:21: Dilaudid) conc = 0.5 mg/ml Hydromorph one TITLE CHECKER Dose: ;Delay: ;Basal: chlorhexidi No Notes: Eric luzmaria ne 2-14 (Same As: l gluconate 12:25: Peridex) Herm ciro 1.2 MG/ML Mouthwash ketAMINE No Route: IV, Mem oria (ANES) 2-14 Drug form: l 11:40: INJ, ONCE, Stop date: 01/01/18 5:40:00 CERTIFIED NURSES' AIDE norepinephr No Route: IV, Memoria ine (ANES) 2-14 Drug form: l 10:50: INJ, ONCE, Stop date: 01/01/18 4:50:00 CERTIFIED NURSES' AIDE fentaNYL No Route: IV, Mem oria (ANES) 2-14 Drug form: l 10:50: INJ, ONCE, Stop date: 01/01/18 4:50:00 CERTIFIED NURSES' AIDE midazolam 2017- No Route: IV, Me moria (ANES) 2-14 Drug form: l 10:45: SOLN, 00 ONCE, Stop date: 01/01/18 4:45:00 CERTIFIED NURSES' AIDE rocuronium No Route: IV, M emoria (ANES) 2-14 Drug form: l 10:45: INJ, ONCE, Stop date: 01/01/18 4:45:00 CERTIFIED NURSES' AIDE propofol No Route: IV, Mem oria (ANES) 2-14 Drug form: l 10:45: INJ, ONCE, Stop date: 01/01/18 4:45:00 CERTIFIED NURSES' AIDE ceFAZolin No Route: IV, Me moria (ANES) 2-14 Drug form: l 10:30: INJ, ONCE, Stop date: 01/01/18 4:30:00 CERTIFIED NURSES' AIDE Lactated No Route: IV, Mem oria Ringers 2-14 Total l Injection 09:40: Volume: Debora nn IV (ANES) 00 1,000, 1000 mL Start date: 01/01/18 3:40:00 CERTIFIED NURSES' AIDE, Stop date: 01/01/18 4:40:00 CERTIFIED NURSES' AIDE metoprolol No Notes: Memor ia tartrate -14 (Same as: l 06:00: Lopressor) For oral use only. Refrigerat e. Shake well. Compound ed Product - formulatio n not commercial ly available* * Bacitracin No 1 appl, Eric luzmaria 2-14 Route: l 06:00: TOP, Q8H, Drug form: OINT, Start date: 01/01/18 0:00:00 CERTIFIED NURSES' AIDE, Duration: 30 day, Stop date: 01/30/18 16:00:00 CDT gabapentin No Notes: Memor ia 300 MG Oral 2-14 (Same as: l Capsule 05:00: Neurontin) Insulin 0 No Notes: Memoria regular 100 2-14 (Same as: l unit + 04:43: Humulin R Kiran n Sodium 00 and Chloride NovoLIN R) 0.9% WASTE: (titrate) F/P - 99 mL Black; E - Municipal Trash Bin (Do not shake) Dextrose No 12.5 gm, Memor ia 50% Syringe 2-14 25 mL, l 04:43: Route: IVP, Drug Form: INJ, Dosing Weight 76.364, kg, PRN, PRN Blood Glucose Results, Start date: 12/31/17 22:43:00 CERTIFIED NURSES' AIDE, Duration: 30 day, Stop date: 01/30/18 23:42:00 CDT Dexmedetomi No 400 Memori a dine 2-14 microgram, l 04:17: 4 mL, Rate: Titrate, Start Dose: 0.2 microgram/ kg/hr, Titration: 0.1 microgram/ kg/hr every 30 min, Goal(s): RASS= -2, Max Dose: 1.5 microgram/ kg/hr, Hold if: Hold if Systolic <110 or if HR <60, Route: IV, Dosing Weight 76.364 kg, Total... heparin No Notes: Memoria 2-14 porcine l 04:00: heparin sugammadex No Notes: Memor ia 2-14 (Same as: l 03:32: [place]) heparin No 5,000 Memoria 2-14 unit, l 03:00: Route: SUB-Q, Q12H, Dosing Weight 68.182, kg, Start date: 12/31/17 21:00:00 CERTIFIED NURSES' AIDE, Duration: 30 day, Stop date: 01/30/18 9:00:00 CDT ketAMINE No Route: IV, Mem oria (ANES) 2-14 Drug form: l 02:25: INJ, ONCE, Stop date: 12/31/17 20:25:00 CERTIFIED NURSES' AIDE niCARdipine No Route: IV, Memoria (ANES) 2-14 Drug form: l 02:25: INJ, ONCE, Stop date: 12/31/17 20:25:00 CERTIFIED NURSES' AIDE Aspirin 300 No Notes: Eric luzmaria MG Rectal 2-14 Refrigerat l Suppository 01:38: e. Kiran n sugammadex No Route: IV, M emoria (ANES) 2-14 Drug form: l 01:03: SOLN, Jaspal 00 ONCE, Stop date: 12/31/17 19:03:00 CERTIFIED NURSES' AIDE Isolyte S 2017- No Notes: Memori a PH 7.4 1000 2-14 (Same as: l mL 00:51: Isolyte S PH 7.4) Hydromorpho No Notes: Eric luzmaria ne 2-14 (Same as: l 00:51: Dilaudid) conc = 0.5 mg/ml Hydromorph one TITLE CHECKER Dose: ;Delay: ;Basal: Naloxone No Notes: Memoria 2-14 Same as l 00:51: Narcan ondansetron No Route: IV, Memoria (ANES) 2-14 Drug form: l 00:27: INJ, ONCE, Stop date: 12/31/17 18:27:00 CERTIFIED NURSES' AIDE acetaminoph No Route: IV, Memoria en (ANES) 2-14 Drug form: l 10 mg 00:15: INJ, Start Kiran n date: 12/31/17 18:15:00 CERTIFIED NURSES' AIDE, Stop date: 12/31/17 19:15:00 CERTIFIED NURSES' AIDE calcium No Route: IV, Eric luzmaria chloride 2-14 Drug form: l (ANES) 00:12: INJ, ONCE, Debora nn 00 Stop date: 12/31/17 18:12:00 CERTIFIED NURSES' AIDE rocuronium No Route: IV, M emoria (ANES) 2-13 Drug form: l 23:27: INJ, ONCE, [place] 00 Stop date: 12/31/17 17:27:00 CERTIFIED NURSES' AIDE ceFAZolin No Route: IV, Me moria (ANES) 2-13 Drug form: l 23:02: INJ, ONCE, Jaspal Stop date: 12/31/17 17:02:00 CERTIFIED NURSES' AIDE SUFentanil No Route: IV, M emoria (ANES) + 2-13 Drug form: l Sodium 22:32: INJ, ONCE, Debora nn Chloride Stop date: 0.9% IV 12/31/17 (ANES) 99 16:32:00 mL CERTIFIED NURSES' AIDE Sodium 2017-0 No Route: IV, Memor ia Chloride 2-13 Drug form: l 0.9% IV 21:02: INJ, Start Herm ciro (ANES) 99 00 date: mL + 12/31/17 SUFentanil 15:02:00 (ANES) 50 CERTIFIED NURSES' AIDE, Stop microgram date: 12/31/17 16:02:00 CERTIFIED NURSES' AIDE ketAMINE 2017-0 No Route: IV, Mem oria (ANES) 2-13 Drug form: l 21:01: INJ, ONCE, [place] 00 Stop date: 12/31/17 15:01:00 CERTIFIED NURSES' AIDE ePHEDrine 2017- No Route: IV, Me moria (ANES) 2-13 Drug form: l 19:35: INJ, ONCE, [place] 00 Stop date: 12/31/17 13:35:00 CERTIFIED NURSES' AIDE calcium 2017-0 No Route: IV, Eric luzmaria chloride 2-13 Drug form: l (ANES) 19:35: INJ, ONCE, Debora nn Stop date: 12/31/17 13:35:00 CERTIFIED NURSES' AIDE phenylephri 2017-0 No Route: IV, Memoria ne (ANES) 2-13 Drug form: l 18:55: INJ, ONCE, Stop date: 12/31/17 12:55:00 CERTIFIED NURSES' AIDE magnesium 2017-0 No Route: IV, Me moria sulfate 2-13 Drug form: l (ANES) 40 18:35: INJ, Start He rmann mg 00 date: 12/31/17 12:35:00 CERTIFIED NURSES' AIDE, Stop date: 12/31/17 13:35:00 CERTIFIED NURSES' AIDE acetaminoph No Route: IV, Memoria en (ANES) 2-13 Drug form: l 10 mg 17:49: INJ, Start Kiran n 00 date: 12/31/17 11:49:00 CERTIFIED NURSES' AIDE, Stop date: 12/31/17 12:49:00 CERTIFIED NURSES' AIDE SUFentanil 2017-0 No Route: IV, M emoria (ANES) 2-13 Drug form: l 17:45: INJ, ONCE, Jaspal Stop date: 12/31/17 11:45:00 CERTIFIED NURSES' AIDE fentaNYL 2018-0 No Route: IV, Mem oria (ANES) 2-13 Drug form: l 17:45: INJ, ONCE, Stop date: 12/31/17 11:45:00 CERTIFIED NURSES' AIDE succinylcho 2018-0 No Route: IV, Memoria line (ANES) 2-13 Drug form: l 17:45: INJ, ONCE, Stop date: 12/31/17 11:45:00 CERTIFIED NURSES' AIDE propofol 2018-0 No Route: IV, Mem oria (ANES) 2-13 Drug form: l 17:45: INJ, ONCE, Stop date: 12/31/17 11:45:00 CERTIFIED NURSES' AIDE lidocaine 2018-0 No Route: IV, Me moria (ANES) 2-13 Drug form: l 17:40: INJ, ONCE, Stop date: 12/31/17 11:40:00 CERTIFIED NURSES' AIDE dexamethaso 2018-0 No Route: IV, Memoria ne (ANES) 2-13 Drug form: l 17:40: INJ, ONCE, Stop date: 12/31/17 11:40:00 CERTIFIED NURSES' AIDE rocuronium 2018-0 No Route: IV, M emoria (ANES) 2-13 Drug form: l 17:30: INJ, ONCE, Stop date: 12/31/17 11:30:00 CERTIFIED NURSES' AIDE ceFAZolin 2018-0 No Route: IV, Me moria (ANES) 2-13 Drug form: l 17:10: INJ, ONCE, Stop date: 12/31/17 11:10:00 CERTIFIED NURSES' AIDE Sodium 2018-0 No Route: IV, Memor ia Chloride -13 Drug form: l 0.9% IV 16:52: INJ, Start Herm ciro (ANES) 99 00 date: mL + 12/31/17 SUFentanil 10:52:00 (ANES) 50 CERTIFIED NURSES' AIDE, Stop microgram date: 12/31/17 11:52:00 CERTIFIED NURSES' AIDE Lactated 2017-0 No Route: IV, Mem oria Ringers 2-13 Total l Injection 16:15: Volume: Debora nn IV (ANES) 00 1,000, 1000 mL Start date: 12/31/17 10:15:00 CERTIFIED NURSES' AIDE, Stop date: 12/31/17 11:15:00 CERTIFIED NURSES' AIDE Acetaminoph 2018-0 Yes 1 tab, PO, Memoria en 325 MG / 2-13 Q6H, 0 l Hydrocodone 13:41: Refill(s) H ermann Bitartrate 00 10 MG Oral Tablet [Bracey 10/325] Tramadol No 50 mg, PO, Mem oria 2-13 Q4-6H, PRN l 13:40: Pain, # 20 [place] 00 tab, 0 Refill(s) charcoal Yes PO, 0 Memoria 2-13 Refill(s) l 13:39: [place] 00 Simvastatin No PO, Memori a 2-13 Bedtime, 0 l 13:39: Refill(s) Jaspal gabapentin No 300 mg = 1 M emoria 300 MG Oral 2-13 cap, PO, l Capsule 13:39: TID, 0 [place] 00 Refill(s) metoprolol Yes 50 mg = 1 Me moria 50 mg oral 2-13 tab, PO, l tablet, 13:39: Daily, 0 Kiran n extended 00 Refill(s) release Lactated No 1,000 mL, Eric luzmaria Ringers IV 12-31 Rate: 40 l 1,000 mL 13:12: ml/hr, 00 Infuse over: 25 hr, Route: IV, Dosing Weight 68.182 kg, Total Volume: 1,000, Start date: 12/31/17 7:12:00 CERTIFIED NURSES' AIDE, Duration: 30 day, Stop date: 01/30/18 7:11:00 CDT, 1.84, m2 Vital Signs Vital Name Observation Time Observation Value Comments Source Temperature Oral (F) 2021-02-18 17:01:00 97.7 F [facility] Heart Rate 2021-02-18 17:01:00 [facility] [place] Respitory Rate 2021-02-18 17:01:00 [facility] al [place] Systolic (mm Hg) 2021-02-18 17:01:00 Eric rial [place] Diastolic (mm Hg) 2021-02-18 17:01:00 Mem orial [place] Systolic (mm Hg) 2021-02-18 13:09:00 Eric rial [place] Diastolic (mm Hg) 2021-02-18 13:09:00 Mem orial [place] Temperature Oral (F) 2021-02-18 13:09:00 97.4 F [facility] Heart Rate 2021-02-18 13:09:00 [facility] [place] Respitory Rate 2021-02-18 13:09:00 [facility] [place] Temperature Oral (F) 2021-02-18 09:43:00 97.9 F [facility] [place] Heart Rate 2021-02-18 09:43:00 [facility] Respitory Rate 2021-02-18 09:43:00 [facility] [place] Systolic (mm Hg) 2021-02-18 09:43:00 Eric rial [place] Diastolic (mm Hg) 2021-02-18 09:43:00 Mem orial [place] Height 2021-02-14 09:40:00 172.72 cm [facility] [place] Weight 2021-02-14 09:40:00 [facility] BMI Calculated 2021-02-14 09:40:00 [facility] [place] Height 2021-02-13 15:51:00 177.8 cm [facility] [place] BMI Calculated 2021-02-13 15:51:00 [facility] [place] Weight 2021-02-13 15:51:00 [facility] [place] Respitory Rate 2021-01-18 17:15:00 [facility] [place] Systolic (mm Hg) 2021-01-18 17:15:00 Eric rial Jaspal Diastolic (mm Hg) 2021-01-18 17:15:00 Mem orial [place] Respitory Rate 2021-01-18 17:00:00 Mem[facility] al [place] Systolic (mm Hg) 2021-01-18 17:00:00 Eric rial Jaspal Diastolic (mm Hg) 2021-01-18 17:00:00 [facility] Respitory Rate 2021-01-18 16:45:00 [facility] Systolic (mm Hg) 2021-01-18 16:45:00 [facility] Diastolic (mm Hg) 2021-01-18 16:45:00 [facility] Height 2021-01-18 14:35:00 167.64 cm [facility] Weight 2021-01-18 14:35:00 [facility] BMI Calculated 2021-01-18 14:35:00 [facility] Heart Rate 2021-01-18 14:00:00 [facility] Height 2021-01-13 20:42:00 172.72 cm [facility] Weight 2021-01-13 20:42:00 [facility] BMI Calculated 2021-01-13 20:42:00 [facility] Temperature Oral (F) 2018-01-08 18:43:00 98.5 F [facility] Systolic (mm Hg) 2018-01-08 18:43:00 [facility] Diastolic (mm Hg) 2018-01-08 18:43:00 [facility] [place] Heart Rate 2018-01-08 18:43:00 [facility] Respitory Rate 2018-01-08 18:43:00 [facility] Respitory Rate 2018-01-08 13:56:00 [facility] Systolic (mm Hg) 2018-01-08 13:56:00 [facility] Diastolic (mm Hg) 2018-01-08 13:56:00 [facility] [place] Heart Rate 2018-01-08 13:56:00 [facility] Temperature Oral (F) 2018-01-08 13:56:00 98.7 F [facility] Heart Rate 2018-01-08 10:38:00 [facility] Respitory Rate 2018-01-08 10:38:00 [facility] Systolic (mm Hg) 2018-01-08 10:38:00 [facility] Diastolic (mm Hg) 2018-01-08 10:38:00 [facility] Temperature Oral (F) 2018-01-08 10:38:00 97.9 F [facility] Height 2018-01-01 15:02:00 180.34 cm [facility] Height 2018-01-01 12:00:00 180.34 cm [facility] Height 2018-01-01 08:40:00 180.34 cm [facility] BMI Calculated 2018-01-01 01:56:00 [facility] Weight 2018-01-01 01:56:00 [facility] Weight 2017-12-31 13:12:00 [facility] BMI Calculated 2017-12-31 13:12:00 [facility] Procedures Procedure Date / Time Performed Performing Clinician [facility] e Hernia repair [facility] Operation<sup>2</sup> [facility] CABG [facility] - Coronary [facility] araiza artery bypass grafts x 2<sup>1</sup> Procedure<sup>3</sup> [facility] Encounters Start End Encounter Admission Attending Care Care Encounter Source Date/Time Date/Time Type Type Clinicians Facility Department ID 2021-02-13 2021-02-18 [id number] 15:10:00 [place] 2021-02-13 2021-02-18 Outpatient Griselda [facility] [id number] 10:30:47 15:10:00 Adolfo Di [place] 2021-02-13 2021-02-13 Inpatient E [id number] 18:54:00 10:30:00 2021-01-18 2021-01-18 Outpatient Rashaad Ruvalcaba [facility] [id number] 06:25:00 23:59:00 Lauri 2021-01-18 2021-01-18 [id number] 06:25:00 23:59:00 Lauri 2021-01-18 2021-01-18 Outpatient [id number] 06:25:00 06:25:00 2021-01-16 2021-01-16 Outpatient Rashaad Ruvalcaba [facility] [id number] 08:04:00 23:59:00 Lauri 2021-01-16 2021-01-16 Outpatient VISIT, [facility] [id number] 12:10:00 12:10:00 [facility] 2018-12-15 2018-12-15 [id number] 10:44:00 23:59:00 Lauri 2018-12-15 2018-12-15 [id number] 10:44:00 23:59:00 Lauri 2017-12-31 2018-01-08 [id number] 06:24:00 14:15:00 Lauri 2017-12-25 2017-12-25 Outpatient Rashaad Ruvalcaba [facility] [id number] 13:03:00 23:59:00 Lauri Results Test Description Test Time Test Comments Results Result Comments Source CHEM PANEL 2021-02-18 90 [facility] 07:46:00 CHEM PANEL 2021-02-18 18 [facility] 07:46:00 CHEM PANEL 2021-02-18 0.34 [facility] 07:46:00 CHEM PANEL 2021-02-18 132 [facility] 07:46:00 CHEM PANEL 2021-02-18 3.5 [facility] 07:46:00 CHEM PANEL 2021-02-18 99 [facility] 07:46:00 CHEM PANEL 2021-02-18 28 [facility] 07:46:00 CHEM PANEL 2021-02-18 9.2 [facility] 07:46:00 CHEM PANEL 2021-02-18 8.5 [facility] 07:46:00 CHEM PANEL 2021-02-18 119 [facility] 07:46:00 CHEM PANEL 2021-02-18 2.0 [facility] 07:46:00 CHEM PANEL 2021-02-18 2.0 [facility] 07:46:00 HEMATOLOGY 2021-02-18 66.5 [facility] 07:46:00 HEMATOLOGY 2021-02-18 22.4 [facility] 07:46:00 HEMATOLOGY 2021-02-18 10.5 [facility] 07:46:00 HEMATOLOGY 2021-02-18 0.4 [facility] 07:46:00 HEMATOLOGY 2021-02-18 0.2 [facility] 07:46:00 HEMATOLOGY 2021-02-18 4.1 [facility] 07:46:00 HEMATOLOGY 2021-02-18 1.4 [facility] nn 07:46:00 HEMATOLOGY 2021-02-18 0.6 [facility] 07:46:00 HEMATOLOGY 2021-02-18 6.1 [facility] 07:46:00 HEMATOLOGY 2021-02-18 3.95 [facility] 07:46:00 HEMATOLOGY 2021-02-18 12.8 [facility] 07:46:00 HEMATOLOGY 2021-02-18 36.7 [facility] 07:46:00 HEMATOLOGY 2021-02-18 92.7 [facility] nn 07:46:00 HEMATOLOGY 2021-02-18 07:46:00 Test Item Value Reference Range Interpretation Comme nts MCH (test code = MCH) 32.3 pg 27.0-31.0 [facility] QtuetkwMTDVEOOMOW6990-54-10 07:46:0034.8[facility]annHEMATOLOGY 2021-02-18 07:46:0013.5[facility] ZtjfmvoRKYYNNNVPZ3626-92-90 07:46:22215Irnnqhxn CotjzxlBHFVUPABPD9870-38-72 07:46:007.1[facility] HermannPARATHYROID PROFILE 2021-02-18 07:46:001.17[facility]annPARATHYROID QNVDLYQ2097-43-89 07:46:00 1.18[facility]annCHEM UDIYB6772-54-35 02:48:003.0[facility] HermannPARATHYROID OAQXZFB0031-77-00 05:04:001.12[facility]annCHEM VBEGX3703-02-45 05:04:003.2 [facility]annCHE[facility] WGLOC6952-13-27 05:04:002.2[facility]annCHEM PANEL 2021-02-17 05:04:002.6[facility]annCHEM QDGWZ2192-10-27 05:04:0099[facility]annCHEM MEZKY1280-42-50 05:04:0019[facility]annCHEM DGBWI8992-46-09 05:04:000.35[facility]annCHEM JCAGS0855-34-34 05:04:59105Sreeoywn HermannCHEM GLSFJ2101-58-06 05:04:004.5[facility]annCHEM RRMIL9479-63-24 05:04:0098 [facility]annCHE[facility] LSAUA3333-60-19 05:04:0035[facility]annCHEM PANEL 2021-02-17 05:04:009.4[facility]annCHEM GMETT6195-00-86 05:04:006.5[facility]annCHEM WNLHO6719-21-97 05:04:85647Gselwxwc LdzzumlOKYGSGUFPN3218-21-69 05:04:006.4[facility] IyxvgzaWGRDKNHPGF4159-49-63 05:04:004.11[facility] RMGCMRAXSE3894-52-35 05:04:0012.8[facility] UprzwdxTMHEJDNJUW7474-84-55 05:04:00 37.9[facility] VvbuupcIBURJTEQLF6405-17-50 05:04:0092.2[facility]annHEMATOLOGY 2021-02-17 05:04:00 Test Item Value Reference Range Interpretation Comments MCH (test code = MCH) 31.1 pg 27.0-31.0 [facility] BvvyoqdTBGBWUVUAF9016-01-75 05:04:0033.7[facility]annHEMATOLOGY 2021-02-17 05:04:0013.5[facility] WcablqtPKZNSNENUW1842-08-20 05:04:22880Qfldutol NzwfeysMVAYETEGSL0899-61-62 05:04:007.9[facility] VnfhxxmSHRFAINQWF7692-88-10 05:04:0069.2[facility] AbkllsvKQPQMLGAGS3197-30-41 05:04:0019.9[facility] AMAULUHWRR7665-58-55 05:04:0010.5[facility] SorperiUZOAUWDMPN0229-19-89 05:04:00 0.1[facility] MtqgwjwVRWPGREDFA6631-99-29 05:04:000.3[facility] HermannHEMATOLOGY 2021-02-17 05:04:004.4[facility] LmoroldWOIUZJIQTS4463-09-31 05:04:001.3[facility] QeqdirmUEXFTMFQKR1839-06-98 05:04:000.7[facility]annPARATHYROID PROFILE 2021-02-17 05:04:001.13[facility]annCHEM ZYHDF8883-66-39 22:24:0090[facility]annCHEM YOMHE6332-46-85 22:24:0020[facility]annCHEM UKDFA0507-35-37 22:24:000.43[facility]annCHEM ALOAC3881-79-41 22:24:43166Jjerolkj HermannCHEM JYGEM3070-64-81 22:24:003.6[facility]annCHEM KEXUJ7250-51-87 22:24:69290 [facility]annCHE[facility] DODKU1611-20-44 22:24:0030[facility]annCHEM PANEL 2021-02-16 22:24:008.6[facility]annCHEM PYDWN4049-70-72 22:24:009.3[facility]annCHEM GQMYO9964-94-72 22:24:47524Rqfkubeo HermannCHEM DEJJJ3776-30-94 22:24:003.0[facility]annCHEM OIYKX7492-36-13 22:24:002.2[facility] GTLRRSCFID1035-21-94 06:29:0071.3[facility] PsyfcqsMUMSJYXPVV6179-12-80 06:29:00 19.0[facility] RjfycilENOTCTZJOY8357-14-59 06:29:009.2[facility]annHEMATOLOGY 2021-02-16 06:29:000.2[facility] UiaoqjlSGJWFTYIYQ8202-64-45 06:29:000.3[facility] UobhgwoLWMJJCQPEG2098-35-03 06:29:004.9[facility] OvzztidERYDOTFTCU1445-98-85 06:29:001.3[facility] SshbpbgNZROUVZWAC4224-26-15 06:29:000.6[facility] ANPIEJKDHT7947-38-99 06:29:006.8[facility] HhnrgrnSVTNZFYNHM9944-44-31 06:29:00 4.18[facility] ZrsopvzOCNNHKYLBC9449-13-69 06:29:0013.2[facility] HermannHEMATOLOGY 2021-02-16 06:29:0038.8[facility] NtjzswlTQYNFJFHPZ6476-74-78 06:29:0092.8[facility] GspyzjkHTJYRFLTUV8977-91-26 06:29:00 Test Item Value Reference Range Interpretation Comments MCH (test code = MCH) 31.6 pg 27.0-31.0 [facility] VsxrwrwMQPJSHZRAU2179-31-92 06:29:0034.1[facility] HermannHEMATOLOGY 2021-02-16 06:29:0013.5[facility] HziudprXAKXAOVJMS6500-52-84 06:29:30528Wpvnjjnp NrdfcvmALNKGXKTLH7848-57-04 06:29:008.2[facility] MmiomitNFYVNVPCAF9112-51-59 08:52:0014.3[facility] HermannPARATHYROID NVYGKTQ5593-08-05 08:52:001.23[facility] HermannPARATHYROID ARSQTEG3772-33-13 08:52:001.19[facility]annURINE CHEM 2021-02-14 22:49:0052[facility]annCHEM LIIBA2426-61-53 19:54:003.3[facility]annURINE AND AFQHA5241-89-38 04:20:00Yellow *NA*(02/13/21 11:20 PM)[facility] QWGWQ1320-56-76 04:20:00Clear (02/13/21 11:20 PM)[facility] FYJUH8314-95-88 04:20:00 Test Item Value Reference Range Interpretation Comments UA Spec Grav (test code = UA Spec 1.011 1 Grav) [facility] JXMES5749-65-62 04:20:00 Test Item Value Reference Range Interpretation Comments UA pH (test code = UA pH) 6.0 1 5.0-8.0 [facility] GLXES6949-87-34 04:20:00Negative *NA*(02/13/21 11:20 PM)[facility] QMHVX1045-59-29 04:20:00Negative (02/13/21 11:20 PM) [facility] DBDMR2510-07-14 04:20:00<1.0[facility] FNLKZ8392-12-19 04:20:00Negative (02/13/21 11:20 PM)[facility] TKJWV1928-22-07 04:20:00Negative (02/13/21 11:20 PM)[facility] LNPXF7389-47-79 04:20:00<1[facility] MSJRS0463-10-17 04:20:002 [facility] LFFZ9402-82-36 04:20:0055.60[facility] CHEM 2021-02-14 04:15:86601Trjpjzpk HermannURINE KSXD4513-83-76 04:15:0050[facility]UR[facility] LZHF2985-19-53 04:15:0033.7[facility]annUR[facility] KFQO2871-42-93 04:15:0057[facility]annBL[facility]OD BANK OIFXEKI2769-74-23 20:15:00Negative (02/13/21 3:15 PM)[facility] EfzfsooZQJTSEZYMR6053-47-69 20:11:00Not Detected (02/13/21 3:11 PM)[facility] HermannCARDIAC AGBFNXJ5739-88-30 19:19:00<0.02[facility] OTVURUPTRU4565-67-76 19:19:00 Test Item Value Reference Range Interpretation Comments PT (test code = PT) 13.3 s 12.0-14.7 [facility] GpsgnkhHSTTYJKDRG3590-07-39 19:19:00 Test Item Value Reference Range Interpretation Comments INR (test code = INR) 1.02 1 0.85-1.17 [facility]annCHEM DJSZQ6918-80-80 14:01:40258Vprxztzr HermannCHEM PANEL 2021-01-18 14:01:008[facility] HermannCHEM OTAAK9581-15-78 14:01:000.47[facility]annCHEM BKIWM1730-96-99 14:01:28539Aflmpnnu HermannCHEM ZZHFO3483-38-31 14:01:004.7[facility]annCHEM BGHLE8688-72-26 14:01:0092[facility]annCHEM WHCAR2661-95-95 14:01:0028[facility]annCHEM ZLFKU6613-49-16 14:01:009.0 [facility]annCHEM YKKEX7918-76-93 14:01:0010.7[facility] HermannCHEM PANEL 2021-01-18 14:01:65815Cfpthnao IeyslpvULGTHVERMQ3210-23-94 14:01:0067.0[facility] XhurrgxGATFRQYRLB1858-26-28 14:01:0021.9[facility] IidhltiXEGVEGALTE8691-66-80 14:01:0010.7[facility] AzpaniyCPPSMPLCXG5453-62-62 14:01:000.2[facility] OMOWQPASUU3320-71-96 14:01:000.2[facility] YzzrfnlMULDYRWTYI3256-57-80 14:01:004.2 [facility] CkcnmztBIJEAFBDXZ1820-75-50 14:01:001.4[facility] HermannHEMATOLOGY 2021-01-18 14:01:000.7[facility] OhlzjckUMWRLPFVKW9134-08-76 14:01:006.2[facility] TgairncXOTGHVCHKE9336-77-91 14:01:004.26[facility] VbpkevoXWFBIXUGAZ6708-89-17 14:01:0013.5[facility] DzwiuptTVENQNMDCP4385-02-79 14:01:0040.2[facility] ZDWPKPRQBV2038-10-63 14:01:0094.3[facility] SgmuipkLTAHSKWSBE4996-98-52 14:01:00 Test Item Value Reference Range Interpretation Comments MCH (test code = MCH) 31.6 pg 27.0-31.0 [facility] JrcwixuEFSOVAAXCZ3453-81-93 14:01:0033.5[facility] HermannHEMATOLOGY 2021-01-18 14:01:0012.8[facility] PhvzjgdTUMLWABIDK3647-23-24 14:01:60654Fvyihgld DgudzfnSEFKVKGQMG6717-24-04 14:01:006.5[facility] CrggfcfWJEAVHHKEQ3535-34-99 12:51:00Not Detected (01/18/21 6:51 AM)[facility] VwfkbfoRSDMHDBHLN1783-92-20 18:31:0020.1[facility] AsisakxBYHXCCNYOX5470-23-55 18:31:000.4[facility] WPIVCTGFAL9265-14-90 18:31:000.6[facility] RxmxtezYYXFMWVTUC6496-08-53 18:31:009.5 [facility] GswyapgBDPSVFPIBO4060-54-44 18:31:0069.4[facility] HermannHEMATOLOGY 2018-01-05 18:31:000.1[facility] YakmoxmLTZADQJVST4108-88-88 18:31:006.4[facility] EbujqhmCXFXEMJBOR2607-44-63 18:31:001.9[facility] LvehcqiHAQRAIHENC7617-09-71 18:31:000.9[facility] SflxxmxFWBNQHMWKF3475-32-51 18:31:0030.9[facility] ZQRFMJISNP3763-02-43 18:31:0010.6[facility] IcunvfwMDIDZKQBQT2484-67-12 18:31:00 3.32[facility] KowufldNIQMESZZEL4505-93-51 18:31:008.0[facility]annHEMATOLOGY 2018-01-05 18:31:00 Test Item Value Reference Range Interpretation Comments MCH (test code = MCH) 31.9 pg 27.0-31.0 [facility] GmoqorlCZKZMZOGWO7962-63-19 18:31:0034.3[facility] HermannHEMATOLOGY 2018-01-05 18:31:0092.9[facility] BrpdmazHNENHABGPV5434-34-61 18:31:0013.6[facility] YkxgqkeQBIQSFPAZC1275-65-11 18:31:56482Nxltnyej FcsbemsBNSHYTUYVA4271-05-73 18:31:009.2[facility] BvxmvilAQXKUEBVYG4640-87-23 14:03:0063.8[facility] ONEIKUNLEF6033-70-57 14:03:0027.4[facility] XyfmpfaHTUWYOFLCM0867-03-97 14:03:00 7.5[facility] RodjxkrZAYPVQJAHA3238-74-37 14:03:000.9[facility] HermannHEMATOLOGY 2018-01-04 14:03:000.4[facility] FuibqrcHVRYVCDZVD8555-28-98 14:03:002.7[facility] RceukmpSKQEKUEJIN3929-48-85 14:03:006.4[facility] VeabhmdBCLNXVBPJV7012-60-54 14:03:000.1[facility] CgwzhfbZEHRXEFAJO0942-82-60 14:03:000.7[facility] JYNILLDNBH1224-44-56 14:03:0013.6[facility] PvmtrldSCUEFZEZYN4729-47-84 14:03:00 177[facility] DpnenqkPFJYELJDYC3868-74-35 14:03:0033.3[facility] HermannHEMATOLOGY 2018-01-04 14:03:0093.6[facility] MrhrptdZHTNOJQBSS1065-79-20 14:03:00 Test Item Value Reference Range Interpretation Comments MCH (test code = MCH) 31.2 pg 27.0-31.0 [facility] LjrazflEYZSODFWEO9193-70-43 14:03:0010.0[facility] HermannHEMATOLOGY 2018-01-04 14:03:0010.2[facility] MbxlrppOIDJYMHIYQ5498-13-99 14:03:0030.7[facility] ElthstjIJFMFFWLNE5445-77-65 14:03:003.28[facility] GubqfpmEFVXUTEPYY8386-78-82 14:03:007.9[facility]annBLOOD BANK KOPHSGM0581-83-74 14:10:00Product available (01/03/18 8:10 AM)[facility]annCHEM WZJZC8200-45-45 09:11:99286 [facility]annCHEM MNXQV8476-23-73 09:11:008.3[facility] HermannCHEM PANEL 2018-01-03 09:11:93598Rxpyawbz HermannCHEM SXYIG5654-72-35 09:11:54607Zgrorubm HermannCHEM WAKFQ9775-45-44 09:11:0028[facility]annCHEM LGINE8665-36-86 09:11:003.6[facility]annCHEM HNTKS6088-46-36 09:11:0011[facility]annCHEM CTWTW7513-99-63 09:11:000.55[facility]annCHEM CLILR1317-05-41 09:11:29097 [facility]annCHEM DFVGN1465-76-16 09:11:0012.6[facility]annCHEM PANEL 2018-01-03 09:11:002.1[facility]annCHEM CSIET9210-48-48 09:11:002.0[facility] TrtmmlvOKOCKHVOKL0649-99-54 09:11:0020.5[facility] CfverqoJBOSDYPWLF3544-62-68 09:11:006.8[facility] WzljamjZPWQQGAOKV5313-56-13 09:11:0072.3[facility] TDXOXFQTAQ6370-83-90 09:11:002.3[facility] McghzsfDRJUKJELON2307-51-37 09:11:000.8 [facility] MuywnibVNPRAHBEGY8903-40-24 09:11:000.2[facility] HermannHEMATOLOGY 2018-01-03 09:11:008.1[facility] FgduzwoDCKAXNYIQO1311-25-20 09:11:000.2[facility] TyyemjuKHFCUWOSNP5365-95-44 09:11:0094.1[facility] JyruirtZZCZIVSCYI9139-91-17 09:11:0024.4[facility] AdwhqbtXWKPUROOPP0377-11-29 09:11:42769Kspfakcs [place] HQIEETYPGP0055-62-24 09:11:00 Test Item Value Reference Range Interpretation Comments MCH (test code = MCH) 31.8 pg 27.0-31.0 [facility] IjblfqsXRHKWJADRU9196-65-26 09:11:0033.9[facility] HermannHEMATOLOGY 2018-01-03 09:11:0012.9[facility] XhlrljhREIXQRHAMI4752-70-44 09:11:008.0[facility] DdngpekKDUOPBKBBZ7886-75-77 09:11:008.3[facility] QucpljbKGRNJXOBMY9693-89-28 09:11:0011.2[facility] LowiktfEOMPCPWFXD7591-25-08 09:11:002.60[facility] PARATHYROID RPFBARN7925-58-18 09:11:001.17[facility] HermannPARATHYROID PROFILE 2018-01-03 09:11:001.14[facility] HermannCHEM LXBGQ7186-75-96 07:59:29038Zcefvvgb HermannCHEM IBQMV2711-49-12 07:59:65356Xgitequs HermannCHEM CHIFU4552-75-56 07:59:003.8[facility]annCHEM LWIWC7717-80-61 07:59:000.55[facility]annCHEM JIDFC9135-34-28 07:59:53768Knpfisxp [facility]annCHEM EKEWB8567-16-06 07:59:0010 [facility]annCHEM ZDWYE2445-95-08 07:59:30414Wqtjmyjm HermannCHEM PANEL 2018-01-02 07:59:008.0[facility] HermannCHEM UATNL9995-19-44 07:59:0028[facility]annCHEM WYQZR9055-25-59 07:59:0010.8[facility]annCHEM MNYEM0659-17-73 07:59:002.1[facility]annCHEM XBENM6110-76-45 07:59:002.6[facility] PARATHYROID VENFGAX9998-56-67 07:59:000.95[facility]annPARATHYROID PROFILE 2018-01-02 07:59:000.98[facility]annCHEM BBILN5977-64-31 16:24:003.0[facility]annCHEM ZPURX4009-82-30 16:24:002.0[facility]annCHEM ZZDJY4582-40-82 16:24:0089[facility]annCHEM IIEYF9000-58-70 16:24:0025[facility]annCHEM TNAKA9095-07-36 16:24:008.2[facility]annCHEM XVUOC4614-71-38 16:24:50428 [facility]annCHEM GQTNJ6480-99-40 16:24:004.0[facility]annCHEM PANEL 2018-01-01 16:24:24655Skhkyann HermannCHEM ONDTB3166-68-74 16:24:000.73[facility]annCHEM AYOGH0918-76-97 16:24:0010[facility]annCHEM DGDOV1904-01-30 16:24:48753Iuudkeva HermannCHEM PTWTZ2032-46-01 16:24:0012.0[facility] SRNMAIBZJC3672-30-00 16:24:00 Test Item Value Reference Range Interpretation Comments PTT (test code = PTT) 42.1 s 22.9-35.8 [facility] ZzblatxHDZJJDVMWJ0267-51-38 16:24:00 Test Item Value Reference Range Interpretation Comments INR (test code = INR) 1.46 1 0.85-1.17 [facility] EomsbhrEKJVEGNKQB9024-69-74 16:24:00 Test Item Value Reference Range Interpretation Comments PT (test code = PT) 17.8 s 12.0-14.7 [facility] HermannPARATHYROID NXQRNUJ1485-08-87 16:24:001.10[facility] PARATHYROID WFKRDRX7565-64-43 16:24:001.12[facility]annCHEM QWPIJ5299-75-59 12:31:0021[facility]annCHEM WPZXE5577-69-65 12:31:006.1[facility]annCHEM BQLWU5796-91-42 12:31:003.4[facility]annCHEM HIVZV6587-24-30 12:31:000.9 [facility]annCHEM ZWBAJ8798-98-03 12:31:0048[facility]annCHEM PANEL 2018-01-01 12:31:0041[facility]annCHEM XGZZY6242-92-44 12:31:00 Test Item Value Reference Range Interpretation Comments A/G Ratio (test code = A/G Ratio) 1.3 1 0.7-1.6 [facility]annCHEM LKBEB0361-59-60 12:31:002.7[facility] HermannCHEM PANEL 2018-01-01 12:31:00 Test Item Value Reference Range Interpretation Comments B/C Ratio (test code = B/C Ratio) 19 1 - [facility]annCHEM LKTZC3332-30-90 12:31:001.1[facility] HermannIMMUNOLOGY 2018-01-01 12:31:0014.0[facility] HermannSPECIAL BPRBMULYG0697-30-68 12:31:006.1 [facility]annCHEM FALBF5957-41-60 05:49:00 Test Item Value Reference Range Interpretation Comments B/C Ratio (test code = B/C Ratio) 15 1 05-12 [facility]annCHEM WXNMG5441-24-20 05:49:002.9[facility]annCHEM PANEL 2018-01-01 05:49:00 Test Item Value Reference Range Interpretation Comments A/G Ratio (test code = A/G Ratio) 1.2 1 0.7-1.6 [facility]annCHEM NDAEH6267-19-12 05:49:0024[facility] HermannCHEM PANEL 2018-01-01 05:49:006.4[facility]annCHEM RJXRK1014-34-79 05:49:003.5[facility]annCHEM PMNLL6874-29-42 05:49:001.1[facility] HermannCHEM FKDDD2719-37-08 05:49:0046[facility]annCHEM VOUNK4599-23-33 05:49:0057[facility] VLHPEPW8481-15-58 13:15:00Negative (12/31/17 7:15 AM)[facility] NCGHSMZXSI7686-04-70 13:13:000.0[facility]XdxvjfuNUPWECODLQ2962-13-86 13:13:00See Note (12/31/17 7:13 AM)[facility] CenterHmdvcrkQIZAWNCIIU4105-37-35 13:13:00 Test Item Value Reference Range Interpretation Comments Coag Index (test code 2.2 1 See_Comment [Auto mated message] The = Coag Index) system which g enerated this result transmit perze reference range : <=3.0. The reference range was not used to interpr et this result as kiah l/abnormal. [facility] CenterNhuqijxYCEKIZRBXF6646-75-22 13:13:00 Test Item Value Reference Range Interpretation Comments Angle (test code = Angle) 71.4 degrees 53.0-72.0 [facility]GAEOUBRVB5574-20-87 13:13:00 Test Item Value Reference Range Interpretation Comments K-time (test code = K-time) 1.3 min 1.0-3.0 [facility]JdtexygHWPWWIRRIL9549-60-01 13:13:00 Test Item Value Reference Range Interpretation Comments R-time (test code = R-time) 4.8 min 5.0-10.0 [facility] CenterYacfyppCGUTIUIJJA3339-19-91 13:13:0010.0[facility]ballHEMATOLOGY 2017-12-31 13:13:00 Test Item Value Reference Range Interpretation Comments Max Amp (test code = Max Amp) 66.7 mm 50.0-70.0 [facility]
[2021-03-12 21:25] LABS: Absolute Lymphocytes (CBC) 0.7 K/uL (0.7-4.9); Basophils % 0.1 % (0-1.3); Hematocrit 40.5 % (39.6-49.0); Lymphocytes % 5.8 % (15.3-44.8); MPV 6.9 fL (7.6-11.3); RBC Red Blood Cell Count 4.41 M/uL (4.33-5.43)
[2021-03-12] MEDS ORDERED: LORazepam 2 MG/ML VIAL ONE (21:26)
[2021-03-12 21:31] LABS: ALT/SGPT 22 U/L (12-78); AST/SGOT 26 U/L (15-37); Albumin 3.3 g/dL (3.4-5.0); Alkaline Phosphatase 70 U/L (45-117); BUN Blood Urea Nitrogen 15 mg/dL (7-18); Bicarbonate 33 mmol/L (21-32); Bilirubin Direct 0.3 mg/dL (0-0.2); Bilirubin Total 1.1 mg/dL (0.2-1.0); Glucose Level 141 mg/dL (74-106); Lipase 45 U/L (73-393); Potassium 3.9 mmol/L (3.5-5.1); Protein, Total 7.3 g/dL (6.4-8.2); Sodium Level 129 mmol/L (136-145)
[2021-03-12 23:15] LABS: Blood Morphology Comment NOT SEEN (NOT SEEN); Platelet Estimate ADEQ
--- NOTE | 2021-03-12 23:49 | ER ---
Nurse's Notes [facility] Name: Johan Suarez Age: 80 yrs Sex: Male : 1940 Arrival Date: 03/12/2021 Time: 14:05 Bed 27 Private MD: Diagnosis: Small Bowel Obstruction Presentation: 03/12 14:12 Chief complaint: Patient states: Abd pain and bloating for 2 days. N/V started today. ll1 No fever. Feeding tube noted. Home health nurse recommend they come in. Coronavirus screen: Client denies travel out of the [place] in the last 14 days. Ebola Screen: Patient denies travel to an Ebola-affected area in the 21 days before illness onset. Initial Sepsis Screen: Does the patient meet any 2 criteria? No. Patient's initial sepsis screen is negative. Does the patient have a suspected source of infection? Yes: Acute abdominal pain. Risk Assessment: Do you want to hurt yourself or someone else?. Onset of symptoms was March 11, 2021. 14:12 Method Of Arrival: Wheelchair ll1 14:12 Acuity: MONI 3 ll1 Historical: - Allergies: 21:27 No Known Allergies; sf - Home Meds: 21:27 vitamin E 400 unit Oral cap [Active]; Vitamin D3 5,000 unit Oral tab 2 times a week sf [Active]; tramadol 50 mg Oral tab 1 tab PRN [Active]; vitamin J60-bjvvh acid Oral 3 times a week [Active]; simvastatin 40 mg Oral tab 1 tab once daily [Active]; saw palmetto Oral daily [Active]; multivitamin Oral [Active]; metoprolol tartrate 25 mg Oral tab 1 tab 2 times per day [Active]; hydrocodone-acetaminophen 7.5-325 mg Oral tab 1 tab PRN [Active]; ginkgo biloba 120 mg Oral tab [Active]; gabapentin 300 mg Oral cap 1 cap 4 times daily [Active]; fluticasone 50 mcg/actuation nasal spsn 1 spray once daily [Active]; cyclobenzaprine 10 mg Oral tab PRN [Active]; Aspirin Oral 2 times a week [Active]; colostrum, bovine Oral [Active]; - PMHx: 14:15 Hyperlipidemia; cancer (jaw); new jaw CA; ll1 - PSHx: 14: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 Flu vaccine is not up to date. - Social history:: Smoking status: Patient denies any tobacco usage or history of. Screenin:15 Abuse screen: Denies threats or abuse. Denies injuries from another. Nutritional sf screening: On feeding tube Difficulty chewing/swallowing? Yes. Tuberculosis screening: No symptoms or risk factors identified. Fall Risk None identified. IV access (20 points). Total Meyer Fall Scale indicates No Risk (0-24 pts). Assessment: 21:15 General: Appears in no apparent distress. comfortable, Behavior is calm, cooperative. sf Pain: Complains of pain in abdomen Pain currently is 4 out of 10 on a pain scale. Neuro: No deficits noted. Level of Consciousness is awake, alert, Oriented to person, place, time, situation. Cardiovascular: No deficits noted. Patient's skin is warm and dry. Respiratory: No deficits noted. Airway is patent Respiratory effort is even, unlabored, Respiratory pattern is regular, symmetrical. GI: Abdomen is non-distended, Enteral feeding tube in place, clamped. Site clean. Abd is soft and non tender X 4 quads. : No deficits noted. No signs and/or symptoms were reported regarding the genitourinary system. Derm: No deficits noted. No signs and/or symptoms reported regarding the dermatologic system. Musculoskeletal: No deficits noted. No signs and/or symptoms reported regarding the musculoskeletal system. 22:45 Reassessment: Patient appears in no apparent distress at this time. Patient and/or sf family updated on plan of care and expected duration. Pain level reassessed. Patient is alert, oriented x 3, equal unlabored respirations, skin warm/dry/pink. Patient gown changed, pillow case changed, cleaned of vomit; vomited while in CT scan. Denies nausea, reports sudden onset of vomiting x2 without nausea. 23:41 Reassessment: Patient appears in no apparent distress at this time. Patient and/or sf family updated on plan of care and expected duration. Pain level reassessed. Patient is alert, oriented x 3, equal unlabored respirations, skin warm/dry/pink. Vital Signs: 14:12 BP 108 / 91; Pulse 81; Resp 17; Temp 97.8; Pulse Ox 100% ; Weight 49.9 kg; Height 5 ft. ll1 10 in. (177.80 cm); Pain 9/10; 21:16 BP 120 / 75; Pulse 94; Resp 16; Pulse Ox 100% ; Pain 4/10; sf 21:30 BP 110 / 65; Pulse 91; Pulse Ox 99% ; sf 22:21 BP 155 / 75; Pulse 97; sf 22:30 BP 117 / 71; Pulse 96; Resp 16; Pulse Ox 100% ; sf 23:00 BP 126 / 73; Pulse 96; Resp 16; Pulse Ox 100% ; sf 03/13 02:00 BP 95 / 55; Pulse 102; Resp 16; Pulse Ox 100% ; sf 03/12 14:12 Body Mass Index 15.78 (49.90 kg, 177.80 cm) ll1 ED Course: 03/12 14:05 Patient arrived in ED. ds1 14:13 Triage completed. ll1 14:15 Arm band placed on. 1 20:28 Orlando Walsh PA is PHCP. [facility] 20:28 Renato Hernandez MD is Attending Physician. [facility] 20:39 Beny Devries RN is Primary Nurse. sf 20:56 Initial lab(s) drawn, by ok, sent to lab. Inserted saline lock: 20 gauge in right jp3 antecubital area, using aseptic technique. Blood collected. 20:57 Bed in low position. Call light in reach. Side rails up X 1. Door closed. Noise jp3 minimized. Lights dimmed. Pillow given. Verbal reassurance given. Pulse ox on. NIBP on. 22:02 CT Abd/Pelvis - IV Contrast Only Sent. sf 22:45 CT Abd/Pelvis - IV Contrast Only In Process Unspecified. EDMS 23:49 Kobi Rosen DO is Hospitalizing Provider. [facility] 03/13 00:25 No provider procedures requiring assistance completed. COVID swab sent to lab. Patient sf admitted, IV remains in place. Administered Medications: 03/12 21:17 Drug: Ativan (LORazepam) 0.5 mg Route: IVP; Site: right antecubital; sf 23:41 Follow up: Response: No adverse reaction sf 03/13 00:07 Drug: Cipro (ciprofloxacin) 400 mg Volume: 200 ml; Route: IVPB; Infused Over: 60 mins; sf Site: right antecubital; 01:13 Follow up: Response: No adverse reaction; IV Status: Completed infusion; IV Intake: sf 200ml 01:10 Drug: Flagyl (metroNIDAZOLE) 500 mg Volume: 100 ml; Route: IVPB; Rate: 200 ml/hr; sf Infused Over: 30 mins; Site: right antecubital; 02:08 Follow up: Response: No adverse reaction; IV Status: Completed infusion; IV Intake: sf 100ml Intake: 01:13 IV: 200ml; Total: 200ml. sf 02:08 IV: 100ml; Total: 300ml. sf Outcome: 03/12 23:49 Decision to Hospitalize by Provider. batsheva 03/13 02:08 Admitted to ER Hold. Please see [facility] for further documentation. sf Condition: stable Instructed on the need for admit. 14:19 Patient left the ED. aa5 Signatures: Dispatcher [employer] EDMS Orlando Walsh PA PA jmm Sanford, Demi ds1 Susan Carrillo, RN RN aa5 Davian Patel jp3 Pietro Douglas RN RN ll1 Beny Devries RN RN sf Corrections: (The following items were deleted from the chart) 03/12 14:16 14:12 Chief complaint: Patient states: Abd pain and bloating for 2 days. N/V started ll1 today. No fever. ll1 03/13 01:13 01:05 Response: No adverse reaction; IV Status: Completed infusion; IV Intake: 100ml sf sf
--- NOTE | 2021-03-12 23:50 | EDPHYS ---
Physician Documentation [facility] Name: Johan Suarez Age: 80 yrs Sex: Male : 1940 Arrival Date: 03/12/2021 Time: 14:05 Bed 27 Private MD: ED Physician Renato Hernandez HPI: 03/12 20:30 This 80 yrs old Male presents to ER via Wheelchair with complaints of [facility] Abdominal Pain. 20:30 The patient presents with abdominal pain. Onset: The symptoms/episode began/occurred jmm yesterday. The symptoms do not radiate. Associated signs and symptoms: Pertinent positives: vomiting. This is an 80 year old male with a history of hlp, jaw cancer that presents to the ED with complaints of abdominal pain. Pain began after drinking a root beer float through his g tube. Advised to go to ED by home health. Patient states while in the ED, the patient vomited which relieved the majority of pain. . Historical: - Allergies: 21:27 No Known Allergies; sf - Home Meds: 21:27 vitamin E 400 unit Oral cap [Active]; Vitamin D3 5,000 unit Oral tab 2 times a week sf [Active]; tramadol 50 mg Oral tab 1 tab PRN [Active]; vitamin G20-uylei acid Oral 3 times a week [Active]; simvastatin 40 mg Oral tab 1 tab once daily [Active]; saw palmetto Oral daily [Active]; multivitamin Oral [Active]; metoprolol tartrate 25 mg Oral tab 1 tab 2 times per day [Active]; hydrocodone-acetaminophen 7.5-325 mg Oral tab 1 tab PRN [Active]; ginkgo biloba 120 mg Oral tab [Active]; gabapentin 300 mg Oral cap 1 cap 4 times daily [Active]; fluticasone 50 mcg/actuation nasal spsn 1 spray once daily [Active]; cyclobenzaprine 10 mg Oral tab PRN [Active]; Aspirin Oral 2 times a week [Active]; colostrum, bovine Oral [Active]; - PMHx: 14:15 Hyperlipidemia; cancer (jaw); new jaw CA; ll1 - PSHx: 14: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 Flu vaccine is not up to date. - Social history:: Smoking status: Patient denies any tobacco usage or history of. ROS: 20:30 Constitutional: Negative for fever, chills, and weight loss, Cardiovascular: Negative jmm for chest pain, palpitations, and edema, Respiratory: Negative for shortness of breath, cough, wheezing, and pleuritic chest pain. 20:30 Abdomen/GI: Positive for abdominal pain. 20:30 All other systems are negative. Exam: 20:30 Constitutional: This is a well developed, well nourished patient who is awake, alert, jmm and in no acute distress. Head/Face: atraumatic. Eyes: EOMI, no conjunctival erythema appreciated ENT: Moist Mucus Membranes Neck: Trachea midline, Supple Chest/axilla: Normal chest wall appearance and motion. Cardiovascular: Regular rate and rhythm. No edema appreciated Respiratory: Normal respirations, no respiratory distress appreciated 20:30 Skin: General appearance color normal MS/ Extremity: Moves all extremities, no obvious deformities appreciated, no edema noted to the lower extremities Neuro: Awake and alert, normal gait Psych: Behavior is normal, Mood is normal, Patient is cooperative and pleasant 20:30 Abdomen/GI: Inspection: g tube noted, Palpation: soft, nontender, in all quadrants. Vital Signs: 14:12 BP 108 / 91; Pulse 81; Resp 17; Temp 97.8; Pulse Ox 100% ; Weight 49.9 kg; Height 5 ft. ll1 10 in. (177.80 cm); Pain 9/10; 21:16 BP 120 / 75; Pulse 94; Resp 16; Pulse Ox 100% ; Pain 4/10; sf 21:30 BP 110 / 65; Pulse 91; Pulse Ox 99% ; sf 22:21 BP 155 / 75; Pulse 97; sf 22:30 BP 117 / 71; Pulse 96; Resp 16; Pulse Ox 100% ; sf 23:00 BP 126 / 73; Pulse 96; Resp 16; Pulse Ox 100% ; sf 03/13 02:00 BP 95 / 55; Pulse 102; Resp 16; Pulse Ox 100% ; sf 03/12 14:12 Body Mass Index 15.78 (49.90 kg, 177.80 cm) ll1 MDM: 03/12 20:31 Patient medically screened. jmm 23:47 Data reviewed: vital signs, nurses notes. Counseling: I had a detailed discussion with [facility] the patient and/or guardian regarding: the historical points, exam findings, and any diagnostic results supporting the discharge/admit diagnosis, lab results, radiology results, the need for further work-up and treatment in the hospital. ED course: I discussed the patient with Dr. Rodriguez whom will see the patient in the morning. I discussed the patient with Dharmesh Brady whom accepted the patient to Dr. Rosen service. . 03/12 20:40 Order name: Basic Metabolic Panel; Complete Time: 21:43 [facility] 03/12 20:40 Order name: CBC with Diff; Complete Time: 23:17 [facility] 03/12 20:40 Order name: Hepatic Function; Complete Time: :43 [facility] 03/12 20:40 Order name: Lipase; Complete Time: :43 [facility] 03/12 22:33 Order name: Manual Differential; Complete Time: 23:17 [facility] 03/13 02:01 Order name: SARS-COV-2 RT PCR; Complete Time: 12: [facility] 03/13 03:15 Order name: Urine Dipstick-Ancillary; Complete Time: 12: [facility] 03/13 06:06 Order name: CBC with Automated Diff; Complete Time: 12: [facility] 03/13 06:10 Order name: Comprehensive Metabolic Panel; Complete Time: 12:06 [facility] 03/13 06:10 Order name: Phosphorus; Complete Time: 12:06 [facility] 03/13 06:10 Order name: Magnesium; Complete Time: 12: [facility] 03/13 07:43 Order name: Glucose, Ancillary Testing; Complete Time: 12: [facility] 03/13 12:53 Order name: Glucose, Ancillary Testing; Complete Time: 12:06 [facility] 03/12 20:40 Order name: IV Saline Lock; Complete Time: 20:57 [facility] 03/12 20:40 Order name: Labs collected and sent; Complete Time: 20:57 [facility] 03/12 20:40 Order name: CT Abd/Pelvis - IV Contrast Only; Complete Time: 12:06 [facility] 03/13 00:50 Order name: CONS Physician Consult [facility] Administered Medications: 21:17 Drug: Ativan (LORazepam) 0.5 mg Route: IVP; Site: right antecubital; sf 23:41 Follow up: Response: No adverse reaction 03/13 00:07 Drug: Cipro (ciprofloxacin) 400 mg Volume: 200 ml; Route: IVPB; Infused Over: 60 mins; sf Site: right antecubital; 01:13 Follow up: Response: No adverse reaction; IV Status: Completed infusion; IV Intake: sf 200ml 01:10 Drug: Flagyl (metroNIDAZOLE) 500 mg Volume: 100 ml; Route: IVPB; Rate: 200 ml/hr; sf Infused Over: 30 mins; Site: right antecubital; 02:08 Follow up: Response: No adverse reaction; IV Status: Completed infusion; IV Intake: sf 100ml Disposition: 03/12/21 23:49 Hospitalization ordered by Kobi Rosen for Inpatient Admission. Preliminary diagnosis is Small Bowel Obstruction. - Bed requested for Telemetry/MedSurg (Inpatient). - Status is Inpatient Admission. aa5 - Condition is Stable. - Problem is new. - Symptoms are unchanged. Addendum: 03/17/2021 06:37 Co-signature as Attending Physician, Renato Hernandez MD. m h7 Signatures: Dispatcher [employer] [facility] Jesenia Melton RN RN Lashon Dobbins RN RN Orlando Walsh PA PA [facility] Susan Carrillo RN RN aa5 Pietro Douglas RN RN 1 Renato Hernandez MD MD 7 Beny Devries RN RN sf Corrections: (The following items were deleted from the chart) 03/13 00:32 04 23:49 Hospitalization Ordered by Kobi Rosen DO for Inpatient Admission. Preliminary diagnosis is Small Bowel Obstruction. Bed requested for Telemetry/MedSurg (Inpatient). Status is Inpatient Admission. Condition is Stable. Problem is new. Symptoms are unchanged. [facility] 03/13 00:43 00:23 CORONAVIRUS+MR.LAB.BRZ ordered. [facility] 12:17 00:32 03/12/2021 23:49 Hospitalization Ordered by Kobi Rosen DO for Inpatient dw Admission. Preliminary diagnosis is Small Bowel Obstruction. Bed requested for [facility] ER HOLD. Status is Inpatient Admission. Condition is Stable. Problem is new. Symptoms are unchanged. 14:19 12:17 03/12/2021 23:49 Hospitalization Ordered by Kobi Rosen DO for Inpatient aa5 Admission. Preliminary diagnosis is Small Bowel Obstruction. Bed requested for Telemetry/MedSurg (Inpatient). Status is Inpatient Admission. Condition is Stable. Problem is new. Symptoms are unchanged. dw
[2021-03-13] MEDS ORDERED: METRONIDAZOLE 500mg IVPB 500 MG/100 ML BAG IV ONE ×2 (00:18→09:34)
[2021-03-13] MEDS ORDERED: CIPROFLOXACIN 400mg IV 400 MG/200 ML BAG IV ONE ×2 (00:18→11:25)
[2021-03-13 02:32] VITALS: BMI 15.7
[2021-03-13] MEDS ORDERED: NA CHLORIDE 0.9% 1,000 ML ONE (02:56)
[2021-03-13] MEDS: NA CHLORIDE 0.9% 1,000 ML IV SCH ×3 (03:00→17:35)
[2021-03-13 03:15] LABS: Urine Blood Negative (Negative); Urine Glucose Negative (Negative); Urine Protein Trace (Negative); Urine Specific Gravity 1.015 (1.005-1.030)
--- NOTE | 2021-03-13 03:16 | P.HP ---
Certification for Inpatient Patient admitted to: Inpatient With expected LOS: >2 Midnights Patient will require the following post-hospital care: None Practitioner: I am a practitioner with admitting privileges, knowledge of patient current condition, hospital course, and medical plan of care. 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 He also reports bloating, had a BM earlier today. Denies night sweats, chills. No relief with hydrocodone, Pepto, or tylenol. Daughter reports he has been feeding himself rootbeer floats through the G button. CT shows finding compatible with small bowel obstruction. WBC 12. Na 129. Cl 88. CO3 33. Glu 141. Allergies No Known Allergies Allergy (Unverified 03/13/21 02:13) Home Medications: Ciprofloxacin HCl [Cipro] 500 mg PO BID #12 tablet 11/02/15 Colostrum, Bovine [Colostrum] 500 mg PO DAILY 11/02/15 Fluticasone [Flovent Hfa 110] 110 mcg IH DAILY 11/02/15 Gabapentin [Neurontin] 300 mg PO BID 11/02/15 Glucosamine/D3/Boswellia Winifred [Glucosamine Complex Tablet] 1 each PO DAILY 11/02/15 Hydrocodone/Acetaminophen [Hydrocodon-Acetaminophen 5-325] 1 each PO Q6HP PRN 11/02/15 Hydrocodone/Acetaminophen [Vicodin 5-325 mg Tablet] 1 each PO Q4H PRN #30 tablet 11/02/15 Metoprolol Succinate [Toprol Xl] 25 mg PO BID 11/02/15 Montelukast [Singulair] 10 mg PO DAILY 11/02/15 Multivitamin [Multivitamins] 1 each PO DAILY 11/02/15 Ondansetron HCl [Zofran] 4 mg PO Q6H PRN #10 tablet 11/02/15 Rosuvastatin [Crestor] 10 mg PO BEDTIME 11/02/15 Saw [place] 500 mg PO DAILY 11/02/15 Vitamin E [E-Vitamin] 400 iu PO DAILY 11/02/15 lisinopriL [Prinivil] 5 mg PO BEDTIME 11/02/15 - Past Medical/Surgical History Has patient received pneumonia vaccine in the past: No -: Jaw cancer -: hyperlipidemia -: hyponatremia -: CABG x2 -: hernia -: mandible resection -: feeding tube -: port-a-cath - Social History Smoking Status: Former smoker Alcohol use: No CD- Drugs: No Caffeine use: No Place of Residence: Home Review of Systems General: Unremarkable Eyes: Unremarkable ENT: Unremarkable Respiratory: Unremarkable Cardiovascular: Unremarkable Gastrointestinal: Nausea, Vomiting, Abdominal Pain, As per HPI Genitourinary: Unremarkable Musculoskeletal: Unremarkable Integumentary: Unremarkable Neurological: Unremarkable Lymphatics: Unremarkable Physical Examination - Physical Exam General: Alert, Oriented x3, Cooperative, Cachectic HEENT: Atraumatic, Normocephalic, PERRLA, Mucous membr. moist/pink, EOMI, Sclerae nonicteric Neck: Supple, 2+ carotid pulse no bruit, JVD not distended, No Thyromegaly, No LAD Respiratory: Clear to auscultation bilaterally, Normal air movement Cardiovascular: No edema, Normal pulses, Regular rate/rhythm, Normal S1 S2, No gallops, No rubs, No murmurs Capillary refill: <2 Seconds Gastrointestinal: Normal bowel sounds, Soft and benign, No ascites, No masses, No rebound, No guarding, Other (G button intact ), Tenderness Musculoskeletal: No clubbing, No swelling, No contractures, No erythema, No tenderness, No warmth Integumentary: No rashes, No breakdown, No significant lesion, No tenderness/swelling, No erythema, No warmth, No cyanosis Neurological: Normal speech, Normal strength at 5/5 x4 extr, Normal tone, Sensation intact, Cranial nerves 3-12 intact, Normal affect Lymphatics: No axilla or inguinal lymphadenopathy - Studies Laboratory Data (last 24 hrs) 03/12/21 20:54: WBC 12.10 H, Hgb 13.9, Hct 40.5, Plt Count 294 03/12/21 20:54: Sodium 129 L, Potassium 3.9, BUN 15, Creatinine 0.55, Glucose 141 H, Total Bilirubin 1.1 H, AST 26, ALT 22, Alkaline Phosphatase 70, Lipase 45 L Assessment and Plan - Plan Assessment Cancer of the Jaw Chronic Hyponatremia Small Bowel Obstruction Tube feeds via G button Plan Michael consulted NPO, continue IV cipro and flagyl IVF, recheck BMP in the AM morphine and zofran PRN Discharge Plan: Home Plan to discharge in: 48 Hours - Advance Directives Does patient have a Living Will: No Does patient have a Durable POA for Healthcare: No - Code Status/Comfort Care Code Status Assessed: Yes (full code ) Critical Care: No Time Spent Managing Pts Care (In Minutes): 70
[2021-03-13] MEDS: ONDANSETRON 4 MG/2 ML VIAL IV PRN (03:26)
[2021-03-13] MEDS ORDERED: ONDANSETRON 4 MG/2 ML VIAL ONE (03:40)
[2021-03-13 05:57] LABS: Absolute Lymphocytes (CBC) 0.8 K/uL (0.7-4.9); Basophils % 0.1 % (0-1.3); Lymphocytes % 7.3 % (15.3-44.8); MPV 6.8 fL (7.6-11.3); RBC Red Blood Cell Count 4.11 M/uL (4.33-5.43)
[2021-03-13 06:10] LABS: ALT/SGPT 19 U/L (12-78); AST/SGOT 24 U/L (15-37); Albumin 2.9 g/dL (3.4-5.0); Alkaline Phosphatase 63 U/L (45-117); BUN Blood Urea Nitrogen 15 mg/dL (7-18); Bicarbonate 34 mmol/L (21-32); Bilirubin Total 0.9 mg/dL (0.2-1.0); Glucose Level 134 mg/dL (74-106); Magnesium 2.5 mg/dL (1.8-2.4); Phosphorus 3.9 mg/dL (2.5-4.9); Potassium 3.9 mmol/L (3.5-5.1); Protein, Total 6.5 g/dL (6.4-8.2); Sodium Level 130 mmol/L (136-145)
[2021-03-13] MEDS: METRONIDAZOLE 500mg IVPB 500 MG/100 ML BAG IV SCH ×3 (08:00→17:00)
[2021-03-13] MEDS: CIPROFLOXACIN 400mg IV 400 MG/200 ML BAG IV SCH ×2 (11:40→20:33)
--- NOTE | 2021-03-13 12:07 | RAD REPORT ---
EXAM DESCRIPTION: CT ABDOMEN PELVIS WITH IV CONTRAST CLINICAL HISTORY: Abdominal pain TECHNIQUE: Contiguous axial images obtained through the abdomen and pelvis following the uneventful administration of IV contrast. Coronal and sagittal reformatted images were provided. This exam was performed according to our departmental dose-optimization program, which includes autom ated exposure control, adjustment of the mA and/or kV according to patient size and/or use of iterati ve reconstruction technique. COMPARISON: None available for comparison. FINDINGS: Lung bases: Right middle and lower lobe tree-in-bud opacities. Left lower lobe calcified g ranuloma. Coronary artery calcification. Prior cardiac surgery. Paraesophageal calcified lymph nodes. Liver: Unremarkable Gallbladder and biliary system: Unremarkable Pancreas: Unremarkable Spleen: Unremarkable Adrenals: Bilateral adrenal thickening. Kidneys: Normal renal cortical enhancement. Areas of cortical thinning with adjacent hypodensities at the upper, mid and lower poles on the right possibly related to underlying cysts or areas of infarct ion. No calculi. No hydronephrosis. Bowel: Gastrostomy tube in place. Multiple dilated fluid-filled small bowel loops within the abdomen and pelvis. Transition in the right lower quadrant just prior to the terminal ileum. The mesentery ap pears twisted in this region. The distal ileum is decompressed. The cecum is located in the midline m id abdomen. Moderate stool throughout the majority of the large bowel. Colonic diverticula without ad jacent inflammatory change. Appendix: Normal caliber appendix. No findings to suggest acute appendicitis. Urinary bladder: The urinary bladder is distended. Reproductive: Unremarkable as visualized Lymph nodes: No pathologically enlarged lymph nodes. Peritoneum: Mild mesenteric edema. Small amount of free fluid within the abdomen and pelvis.. No free air. Vessels: Mild to moderate atherosclerotic disease. No abdominal aortic aneurysm. Abdominal wall: Unremarkable Bones: Multilevel spondylosis. No acute fracture. Prior median sternotomy. IMPRESSION: 1. Findings compatible with small bowel obstruction. Transition in the right lower van drant just prior to the terminal ileum. The mesentery appears twisted in this region compatible with underlying volvulus or internal hernia. Surgical consult is recommended. 2. Right middle and lower lobe endobronchial infiltrates. 3. Other findings as above. THIS REPORT CONTAINS FINDINGS THAT MAY BE CRITICAL TO PATIENT CARE: The findings were verbally discu ssed via telephone conference with JUANJOSE Miguel, on 03/12/2021 11:34 PM CDT. The results were ackn owledged and understood. Electronically signed by: Liv Bueno MD 03/12/2021 11:36 PM CDT Due to temporary technical issues with the PACS/Fluency reporting system, reports are being signed by the in house radiologist without review as a courtesy to ensure prompt reporting. The interpreting r adiologist is fully responsible for the content of the report.
--- NOTE | 2021-03-13 13:04 | CON ---
Date of Consultation: 03/13/2021 Brief History Of Present Illness: The patient is an 80-year-old male with a history of right jaw cancer, currently receiving radiation treatment, who presents with 10/10 abdominal pain, nausea, vomiting beginning last night. He reported bloating, continued to have bowel movements as of yesterday, and passing gas. He denies any other symptoms. He thought that this was related to him giving himself a root beer float through his PEG tube. He has never had similar episodes before in the past. Past Medical History: Significant for jaw cancer, hyperlipidemia, hyponatremia, coronary artery disease. Past Surgical History: Includes CABG x2, hernia repair, mandible resection, G- tube creation, and Port-A-Cath. Social History: Smoking; he has a heavy smoking history. Denies alcohol or recreational drug use. Home Medications: Include Cipro, colostrum, Flovent, Neurontin, glucosamine, hydrocodone, Toprol, Singulair, multivitamin, Zofran, Crestor, Saw palmetto, vitamin E, Prinivil. Review of Systems: Ten-point review of systems other than HPI, denies. Physical Examination: Vital Signs: At the time of my examination; he is 5 feet 10 inches, 110 pounds. His blood pressure 110/59, pulse rate 108, respiratory rate 16, temperature not recorded. His O2 sats were 100% on room air. General: He is lethargic, sleepy, but arousable and conversive. He has had jaw surgery, but he speaks in intelligible way and appears oriented. HEENT: He is normocephalic. He has had obvious jaw surgery to the lower jaw with reconstruction and flap creation. His oropharynx is somewhat dry otherwise. Neck: Supple without JVD. Chest: Normal expansion and excursion. Sternotomy scar evident. Pulmonary: Clear to auscultation bilaterally. Abdomen: Soft, nontender, nondistended. No rebound. No guarding. No focal peritonitis. He has a PEG tube in place, which is currently capped. Extremities: No clubbing, cyanosis, edema. General Appearance: He is somewhat thin and frail, cachectic appearing. Laboratory Data: He had a laboratory exam, which reveals white blood count of 11.4, hemoglobin is 12.2, hematocrit 38.0, platelet count is 295. His neutrophils are 86%. Sodium 130, potassium 3.9, chloride 89, carbon dioxide 34, BUN 15, creatinine 0.5, glucose 134, phosphorus 3.9, magnesium 2.5. His total bilirubin is 0.9, AST 24, ALT 19, alkaline phosphatase is 63. His lipase is 45. His UA showed trace protein only. He had imaging performed, which included a CT scan of the abdomen and pelvis, officially read by the night radiologist as findings compatible with small bowel obstruction, transition in the right lower quadrant just prior to the terminal ileum. The mesentery appears twist in this region compatible with underlying volvulus, internal hernia, right middle and lower lobe endobronchial infiltrates. Assessment And Plan: This is an 80-year-old male, who comes in with signs and symptoms of a bowel obstruction; however, his current clinical condition is such that his abdomen is completely benign on exam, he has no tenderness whatsoever and denies any pain. He states that after they suctioned out his G-tube last evening, he has had some return of passing gas in his bottom and has significant symptomatic improvement, therefore; 1. IV fluid hydration. 2. N.p.o. 3. Place G-tube to low intermittent wall suction. 4. Serial abdominal exams. 5. Electrolyte correction and medical management. 6. I have explained the risks, benefits, and alternatives of the above stated plan. The patient will have a repeat KUB in the morning. Thank you for this interesting consult. CAMILO/LEO Voice ID: [id number] Report ID: [id number] ROOPA
--- NOTE | 2021-03-13 16:24 | P.PN ---
Subjective Date of Service: 03/13/21 Primary Care Provider: Shepherd Chief Complaint: SBO Subjective: Improving (Less pain noted. Mild nausea. No passage of gas or stool.) Physical Examination - Vital Signs Temperature: 98.3 F Blood Pressure: 116/68 Pulse: 89 Respirations: 16 Pulse Ox (%): 100 - Studies Laboratory Data (last 24 hrs) 03/12/21 20:54: WBC 12.10 H, Hgb 13.9, Hct 40.5, Plt Count 294 03/12/21 20:54: Sodium 129 L, Potassium 3.9, BUN 15, Creatinine 0.55, Glucose 141 H, Total Bilirubin 1.1 H, AST 26, ALT 22, Alkaline Phosphatase 70, Lipase 45 L Assessment & Plan Discharge Plan: Home Plan to discharge in: 48 Hours Physician Review Additional Text: Physical exam: Patient alert, cooperative. Still with some nausea Heart: Regular rate and rhythm Lungs: Clear to auscultation Abdomen: No distention noted. Gastrotomy tube in place. Mild pain with palpation Extremities showed good range of motion Impression: Nausea, vomiting with abdominal pain secondary to small bowel obstruction History of jaw cancer History of gastrotomy tube Chronic hyponatremia Hyperlipidemia COPD Hypertension Chronic pain Plan: Patient remains n.p.o. at this time. Will monitor closely. Case discussed with surgery. We will order a KUB in the morning to come to reevaluate. We will continue with IV antibiotic therapy. Check lab in the morning. Encourage ambulation. Will monitor for passage of bowel or gas. Anticipate improvement over the next 48 hours. We will continue to monitor serial examinations. Time Spent Managing Pts Care (In Minutes): 55
[2021-03-13] MEDS: ENOXAPARIN 30 MG/0.3 ML SQ SCH (17:35)
[2021-03-13] MEDS: MORPHINE 2 MG/ML SYR IV PRN (21:31)
[2021-03-14] MEDS: METRONIDAZOLE 500mg IVPB 500 MG/100 ML BAG IV SCH ×3 (00:12→17:31)
[2021-03-14 05:59] LABS: Absolute Lymphocytes (CBC) 0.8 K/uL (0.7-4.9); Basophils % 0.2 % (0-1.3); Hematocrit 33.7 % (39.6-49.0); Lymphocytes % 9.6 % (15.3-44.8); MPV 6.9 fL (7.6-11.3); RBC Red Blood Cell Count 3.61 M/uL (4.33-5.43)
[2021-03-14 06:06] LABS: ALT/SGPT 18 U/L (12-78); AST/SGOT 26 U/L (15-37); Albumin 2.6 g/dL (3.4-5.0); Alkaline Phosphatase 52 U/L (45-117); BUN Blood Urea Nitrogen 19 mg/dL (7-18); Bicarbonate 34 mmol/L (21-32); Bilirubin Total 0.6 mg/dL (0.2-1.0); Glucose Level 101 mg/dL (74-106); Magnesium 2.2 mg/dL (1.8-2.4); Phosphorus 2.9 mg/dL (2.5-4.9); Potassium 3.4 mmol/L (3.5-5.1); Protein, Total 5.7 g/dL (6.4-8.2); Sodium Level 135 mmol/L (136-145)
[2021-03-14] MEDS: FOLIC ACID 1 MG in NA CHLORIDE 0.9% 50 ML IV SCH (08:14)
[2021-03-14] MEDS: THIAMINE 200 MG/2 ML INJ IVP SCH (08:14)
[2021-03-14] MEDS: CIPROFLOXACIN 400mg IV 400 MG/200 ML BAG IV SCH ×2 (08:14→21:11)
--- NOTE | 2021-03-14 09:22 | RAD REPORT ---
EXAM DESCRIPTION: RAD - Abdomen 1 View (KUB) - 03/14/2021 9:14 am CLINICAL HISTORY: sbo COMPARISON: Abdomen Pelvis W Contrast dated 03/12/2021 FINDINGS: PEG tube positioning has not changed. No free air or pneumatosis. Small bowel dilatation p attern has significantly improved. Mostly decompressed left-side of the colon shows no suspicious fin dings. Stool is present filling the cecum and ascending colon. Stomach does not appear to be dilated. No suspicious calcifications. Bony degenerative changes are present. IMPRESSION: Small bowel dilatation pattern has shown significant improvement. No free air or pneumatosis.
[2021-03-14] MEDS: KCL 20 MEQ/100 mL IVPB 20 MEQ/100 ML BAG IV SCH ×2 (12:26→12:27)
[2021-03-14] MEDS: NA CHLORIDE 0.9% 1,000 ML IV SCH ×2 (12:27→18:13)
--- NOTE | 2021-03-14 15:41 | P.PN ---
Subjective Date of Service: 03/14/21 Primary Care Provider: Cora Chief Complaint: SBO Subjective: Improving, Doing well Physical Examination - Vital Signs Temperature: 98 F Blood Pressure: 116/80 Pulse: 75 Respirations: 20 Pulse Ox (%): 98 Assessment & Plan Discharge Plan: Home Plan to discharge in: 48 Hours Physician Review Additional Text: Physical exam: Patient alert, cooperative. Still with some nausea Heart: Regular rate and rhythm Lungs: Clear to auscultation Abdomen: No distention noted. Gastrotomy tube in place. Pain improved. Extremities showed good range of motion Impression: Nausea, vomiting with abdominal pain secondary to small bowel obstruction History of jaw cancer History of gastrotomy tube Chronic hyponatremia Hyperlipidemia COPD Hypertension Chronic pain Plan: Patient remains n.p.o. at this time. X-ray shows improvement. Will discuss with surgery on when to start clear liquids. Anticipate improvement over the next 48 hours. Continue with current medications. DVT prophylaxis in place. We will continue to monitor serial exams. Await recommendations by surgery. Time Spent Managing Pts Care (In Minutes): 55
[2021-03-14] MEDS: ENOXAPARIN 30 MG/0.3 ML SQ SCH (17:31)
--- NOTE | 2021-03-14 18:58 | P.PN ---
Subjective Date of Service: 03/14/21 Primary Care Provider: Cora Chief Complaint: SBO Subjective: Improving Physical Examination - Vital Signs Temperature: 97.8 F Blood Pressure: 101/54 Pulse: 88 Respirations: 20 Pulse Ox (%): 99 - Physical Exam General: Alert, In no apparent distress, Cooperative Respiratory: Clear to auscultation bilaterally Gastrointestinal: Soft and benign, Non-distended, No ascites, No tenderness, No rebound, No guarding Assessment And Plan - Current Problems (Diagnosis) (1) Small bowel obstruction Current Visit: Yes Status: Acute Plan: - advance diet - serial exams - continue medical management - ambulate with assist Physician Review Additional Text: Physical exam: Patient alert, cooperative. Still with some nausea Heart: Regular rate and rhythm Lungs: Clear to auscultation Abdomen: No distention noted. Gastrotomy tube in place. Pain improved. Extremities showed good range of motion Impression: Nausea, vomiting with abdominal pain secondary to small bowel obstruction History of jaw cancer History of gastrotomy tube Chronic hyponatremia Hyperlipidemia COPD Hypertension Chronic pain Plan: Patient remains n.p.o. at this time. X-ray shows improvement. Will discuss with surgery on when to start clear liquids. Anticipate improvement over the next 48 hours. Continue with current medications. DVT prophylaxis in place. We will continue to monitor serial exams. Await recommendations by surgery.
[2021-03-15] MEDS: METRONIDAZOLE 500mg IVPB 500 MG/100 ML BAG IV SCH ×2 (00:59→09:00)
[2021-03-15] MEDS: MORPHINE 2 MG/ML SYR IV PRN (01:06)
[2021-03-15] MEDS: ONDANSETRON 4 MG/2 ML VIAL IV PRN (01:07)
[2021-03-15] MEDS: NA CHLORIDE 0.9% 1,000 ML IV SCH (05:18)
[2021-03-15 06:21] LABS: BUN Blood Urea Nitrogen 13 mg/dL (7-18); Bicarbonate 33 mmol/L (21-32); Glucose Level 105 mg/dL (74-106); Potassium 4.1 mmol/L (3.5-5.1); Sodium Level 136 mmol/L (136-145)
--- NOTE | 2021-03-15 08:30 | P.DS ---
Admission Date: 03/13/21 Discharge Date: 03/15/21 Primary Care Provider: Dr. Shepherd Disposition: ROUTINE DISCHARGE Discharge Condition: GOOD Reason for Admission: SBO Consultations: Surgery-Dr. Rodriguez Procedures: COVID: Negative CT scan: FINDINGS: Lung bases: Right middle and lower lobe tree-in-bud opacities. Left lower lobe calcified granuloma. Coronary artery calcification. Prior cardiac surgery. Paraesophageal calcified lymph nodes. Liver: Unremarkable Gallbladder and biliary system: Unremarkable Pancreas: Unremarkable Spleen: Unremarkable Adrenals: Bilateral adrenal thickening. Kidneys: Normal renal cortical enhancement. Areas of cortical thinning with adjacent hypodensities at the upper, mid and lower poles on the right possibly related to underlying cysts or areas of infarction. No calculi. No hydronephrosis. Bowel: Gastrostomy tube in place. Multiple dilated fluid-filled small bowel loops within the abdomen and pelvis. Transition in the right lower quadrant just prior to the terminal ileum. The mesentery appears twisted in this region. The distal ileum is decompressed. The cecum is located in the midline mid abdomen. Moderate stool throughout the majority of the large bowel. Colonic diverticula without adjacent inflammatory change. Appendix: Normal caliber appendix. No findings to suggest acute appendicitis. Urinary bladder: The urinary bladder is distended. Reproductive: Unremarkable as visualized Lymph nodes: No pathologically enlarged lymph nodes. Peritoneum: Mild mesenteric edema. Small amount of free fluid within the abdomen and pelvis.. No free air. Vessels: Mild to moderate atherosclerotic disease. No abdominal aortic aneurysm. Abdominal wall: Unremarkable Bones: Multilevel spondylosis. No acute fracture. Prior median sternotomy. IMPRESSION: 1. Findings compatible with small bowel obstruction. Transition in the right lower quadrant just prior to the terminal ileum. The mesentery appears twisted in this region compatible with underlying volvulus or internal hernia. Surgical consult is recommended. 2. Right middle and lower lobe endobronchial infiltrates. 3. Other findings as above. Follow up XRay: COMPARISON: Abdomen Pelvis W Contrast dated 03/12/2021 FINDINGS: PEG tube positioning has not changed. No free air or pneumatosis. Small bowel dilatation pattern has significantly improved. Mostly decompressed left-side of the colon shows no suspicious findings. Stool is present filling the cecum and ascending colon. Stomach does not appear to be dilated. No suspicious calcifications. Bony degenerative changes are present. IMPRESSION: Small bowel dilatation pattern has shown significant improvement. No free air or pneumatosis. 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 Patient presented with abdominal pain found to have small bowel obstruction. Patient was admitted for further evaluation and treatment. Surgery was consulted. Hospital Course: Patient presented with nausea, vomiting with abdominal pain secondary to small bowel obstruction. The patient was admitted for further evaluation and treatm ent. Surgery was consulted. No surgical invention was required. His PEG tube was placed to intermittent suction. His condition improved. Patient was started on diet through the PEG tube. Patient tolerated this well. At discharge he is without abdominal pain, nausea vomiting. Patient able to take feeding through his PEG tube. No significant residuals noted. At discharge patient will follow up with his PCP in 1 week to follow-up with his hospitalization. Patient will continue with his regular PEG tube feeds. Recommend follow-up with oncology in 1 week to follow-up his hospitalization as well. Patient with history of hypertension. Patient takes lisinopril 5 mg daily and metoprolol XL 25 mg 1 pill twice daily. Blood pressures have been stable without any medication at this time. Will recommend to hold blood pressure medication. Recommend to monitor blood pressures daily. If blood pressures start to increase above 140/90 he may need to restart his pressure medications of lisinopril and metoprolol. Recommend follow-up with his PCP to further address. Patient with COPD. At discharge patient will continue with Flovent 1 puff daily. Patient with chronic pain. At discharge patient will continue with his current medications of gabapentin and hydrocodone as directed. Patient with hyperlipidemia. At discharge patient will continue with Crestor 10 mg daily. Patient with seasonal allergies. Patient will continue with Singulair as directed. Vital Signs/Physical Exam: Temp Pulse Resp BP Pulse Ox 97.4 F 83 19 107/53 L 96 03/15/21 04:00 03/15/21 04:00 03/15/21 04:00 03/15/21 04:00 03/15/21 04:00 General: Alert, In no apparent distress, Oriented x3, Cooperative HEENT: Atraumatic Neck: Supple Respiratory: Clear to auscultation bilaterally, Normal air movement Cardiovascular: Normal pulses, Regular rate/rhythm Gastrointestinal: Normal bowel sounds, No masses, No rebound, No guarding, Other (PEG tube in place) Integumentary: No tenderness/swelling Neurological: Normal speech, Normal strength at 5/5 x4 extr, Normal tone, Normal affect Laboratory Data at Discharge: WBC 7.90 K/uL (4.3-10.9) D 03/14/21 05:17 Hgb 11.6 g/dL (13.6-17.9) L 03/14/21 05:17 Hct 33.7 % (39.6-49.0) L 03/14/21 05:17 Plt Count 250 K/uL (152-406) 03/14/21 05:17 Sodium 136 mmol/L (136-145) 03/15/21 05:31 Potassium 4.1 mmol/L (3.5-5.1) 03/15/21 05:31 BUN 13 mg/dL (7-18) 03/15/21 05:31 Creatinine 0.48 mg/dL (0.55-1.3) L 03/15/21 05:31 Glucose 105 mg/dL (74-106) 03/15/21 05:31 Phosphorus 2.9 mg/dL (2.5-4.9) 03/14/21 05:17 Magnesium 2.2 mg/dL (1.8-2.4) 03/14/21 05:17 Total Bilirubin 0.6 mg/dL (0.2-1.0) 03/14/21 05:17 AST 26 U/L (15-37) 03/14/21 05:17 ALT 18 U/L (12-78) 03/14/21 05:17 Alkaline Phosphatase 52 U/L (45-117) 03/14/21 05:17 Lipase 45 U/L (73-393) L 03/12/21 20:54 Home Medications: Colostrum, Bovine [Colostrum] 500 mg PO DAILY 11/02/15 Fluticasone [Flovent Hfa 110*] 110 mcg IH DAILY 11/02/15 Gabapentin [Neurontin] 300 mg PO BID 11/02/15 Glucosamine/D3/Boswellia Winifred [Glucosamine Complex Tablet] 1 each PO DAILY 11/02/15 Hydrocodone/Acetaminophen [Hydrocodone-Acetamin 5-325 mg] 1 each PO Q6HP PRN 11/02/15 Montelukast [Singulair*] 10 mg PO DAILY 11/02/15 Multivitamin [Multivitamins] 1 each PO DAILY 11/02/15 Ondansetron HCl [Zofran] 4 mg PO Q6H PRN #10 tablet 11/02/15 Rosuvastatin [Crestor*] 10 mg PO BEDTIME 11/02/15 Saw [place] 500 mg PO DAILY 11/02/15 Vitamin E [Vitamin E*] 400 iu PO DAILY 11/02/15 Physician Discharge Instructions: Patient presented with nausea, vomiting with abdominal pain secondary to small bowel obstruction. The patient was admitted for further evaluation and treatment. Surgery was consulted. No surgical invention was required. His PEG tube was placed to intermittent suction. His condition improved. Patient was started on diet through the PEG tube. Patient tolerated this well. At discharge he is without abdominal pain, nausea vomiting. Patient able to take feeding through his PEG tube. No significant residuals noted. At discharge patient will follow up with his PCP in 1 week to follow-up with his hospitalization. Patient will continue with his regular PEG tube feeds. Recommend follow-up with oncology in 1 week to follow-up his hospitalization as well. Patient with history of hypertension. Patient takes lisinopril 5 mg daily and metoprolol XL 25 mg 1 pill twice daily. Blood pressures have been stable and controlled without any medication at this time. Will recommend to hold blood pressure medication. Recommend to monitor blood pressures daily. If blood pressures start to increase above 140/90 he may need to restart his pressure medications of lisinopril and metoprolol. Recommend follow-up with his PCP to further address. Patient with COPD. At discharge patient will continue with Flovent 1 puff daily. Patient with chronic pain. At discharge patient will continue with his current medications of gabapentin and hydrocodone as directed. Patient with hyperlipidemia. At discharge patient will continue with Crestor 10 mg daily. Patient with seasonal allergies. Patient will continue with Singulair as directed. Diet: PEG tube Activity: Bedrest Followup: Shane Shepherd MD [Primary Care Provider] - Time spent managing pt's care (in minutes): 55
[2021-03-15 08:48] VITALS: BP 114/59; TEMP 98
[2021-03-15] MEDS ORDERED: FLUTICASONE 110 MCG/PUFF 12 GM INH IH SCH (09:00)
[2021-03-15] MEDS: FOLIC ACID 1 MG in NA CHLORIDE 0.9% 50 ML IV SCH (09:00)
[2021-03-15] MEDS: CIPROFLOXACIN 400mg IV 400 MG/200 ML BAG IV SCH (09:00)
--- NOTE | 2021-03-15 09:03 | RAD REPORT ---
EXAM DESCRIPTION: RAD - Abdomen 1 View (KUB) - 03/15/2021 8:43 am CLINICAL HISTORY: Abdomen pain. FINDINGS: Mildly dilated small bowel loops without significant change from March 14, 2021. Air is pr esent within portions of colon. No abnormal mass is seen
[2021-03-15] MEDS: THIAMINE 200 MG/2 ML INJ IVP SCH (09:51)
[2021-03-15 10:23] VITALS: O2SAT 98
== END 2021-03-15 10:37 | disposition home or self-care (01) | DRG 389 ==
LOC: ER 14:05 → ERHOLD 03-13 00:56 → 2ND 03-13 14:10
PROVIDERS: ADMIT Family Medicine; ATTEND Family Medicine
DX: K56.609 Unspecified intestinal obstruction, unspecified as to partial versus complete obstruction (principal); E44.0 Moderate protein-calorie malnutrition; Z68.1 Body mass index [BMI] 19.9 or less, adult; E87.1 Hypo-osmolality and hyponatremia; J44.9 Chronic obstructive pulmonary disease, unspecified; I25.10 Atherosclerotic heart disease of native coronary artery without angina pectoris; G89.29 Other chronic pain; J30.2 Other seasonal allergic rhinitis; E78.5 Hyperlipidemia, unspecified; Z79.82 Long term (current) use of aspirin; Z79.899 Other long term (current) drug therapy; Z95.1 Presence of aortocoronary bypass graft; Z93.1 Gastrostomy status; Z87.891 Personal history of nicotine dependence; Z20.822 Contact with and (suspected) exposure to COVID-19
CPT/HCPCS: 36415; 74018; 74177; 77386; 80048; 80053; 80076; 81003; 82947; 83690; 83735; 84100; 85025; 94760; 96365; 96375; 99285; J0744; J1650; J2270; J2405; J3411; J3480; J7030; Q9967; U0003

== ENCOUNTER 2021-04-28 09:02 | Emergency (ER) | payer MEDICARE, OTHER ==
--- OUTSIDE RECORDS SUMMARY | 2021-04-28 09:12 | XMS REPORT | Continuity of Care Document ---
:1940 Author Organization [facility] t Address [address] [place] [address] Care Team Providers Name Role Phone Rubén Villalobos Attending Clinician Lauri Ruvalcaba Attending Clinician VISIT, [facility] Attending Clinician Unavailable Rubén Villalobos Admitting Clinician Lauri Ruvalcaba Admitting Clinician Problems Condition Condition Condition Status Onset Resolution Last Treating Co mments Source Name Details Category Date Date Treatment Clinician Date NEEDS Diagnosis Active 2021-03-10 Mem oria FEEDING 02-13 22:01:00 l TUBE/DR NEEDS 00:00: Jaspal REFERRAL FEEDING 00 TUBE/DR REFERRAL Active 02/13/2021 [facility] C00.9 - Diagnosis Active 2021-02-14 Me moria [...] Mem oria - 10:40:00 l C09.9 00:00: [place] 00 Active 01/12/2021 [facility] 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-12-25 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, 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, FA Active 8 BRETT Mendoza ORAL Diagnosis Active 2018-01-17 Mem oria CANCER, 1-24 11:47:00 l C06.9, ORAL 00:00: Jaspal C00.9 CANCER, 00 C06.9, C00.9 Active 12/11/2017 [facility] Coronary Problem Active 2021-02-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 - 21:50:43 l bypass Coronary 00:00: Kiran n grafts x 2 artery 00 (procedure bypass ) grafts x 2 (procedure ) Active 07/06/2011 Problem 02/20/2021 [facility], BRETT Shay, BRETT Mendoza 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 07/05/2019 [facility], BRETT Shay Postproced Problem 2018-04-16 M emoria ural 11:43:03 l hematoma Jaspal of skin Postproced and ural subcutaneo hematoma us tissue of skin following and other subcutaneo procedure us tissue following other procedure 04/16/2018 [facility] 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, 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 Kiran n d Polyneurop athy, unspecifie d 04/16/2018 [facility] Paroxysmal Problem 2018-04-16 M emoria atrial 11:43:03 l fibrillati Kiran n on Paroxysmal atrial fibrillati on 04/16/2018 [facility] Essential Problem 2018-04-16 Me moria (primary) 11:43:03 l hypertensi Kiran n on Essential (primary) hypertensi on 04/16/2018 [facility] Hyperlipid Problem 2018-04-16 M emoria emia, 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 Kiran n d Hyperlipid emia, unspecifie d 04/16/2018 [facility] Gastro-eso Problem 2018-04-16 M emoria phageal 11:43:03 l reflux [place] disease Gastro-eso without phageal esophagiti reflux s disease without esophagiti s 04/16/2018 [facility] Presence Problem 2018-04-16 Mem oria of 11:43:03 l aortocoron Presence He rmciro richie bypass of graft aortocoron richie bypass graft 04/16/2018 [facility] Hyperlipid Problem Resolve 2021-02-20 Memoria emia d 21:50:43 l (disorder) Kiran n Hyperlipid emia (disorder) Resolved Problem 02/20/2021 [facility], BRETT Shay, BRETT Mendoza Malignant Problem Resolve 2021-02-20 M emoria tumor of d 21:50:43 l lip [place] (disorder) Malignant tumor of lip (disorder) Resolved Problem 02/20/2021 [facility], BRETT Shay, BRETT Munozland Arthritis Problem Active 2021-02-20 Me moria (disorder) 21:50:43 l [place] Arthritis (disorder) Active Problem 02/20/2021 back [facility], BRETT Munozland Atrial Problem Active 2021-02-20 Memor ia fibrillati 21:50:43 l on Atrial Jaspal (disorder) fibrillati on (disorder) Active Problem 02/20/2021 [facility], BRETT Shay, OPIDarin Mendoza Dizziness Problem Active 2021-02-20 Me moria (finding) 21:50:43 l Jaspal Dizziness (finding) Active Problem 02/20/2021 [facility], BRETT Shay, CHIRAGD Upton Hypertensi Problem Active 2021-02-20 M emoria ve 21:50:43 l disorder, Jaspal systemic Hypertensi arterial ve (disorder) disorder, systemic arterial (disorder) Active Problem 02/20/2021 [facility], BRETT Shay, CHIRAGD Upton Pain Problem Active 2021-02-20 Memor ia (finding) 21:50:43 l Pain Jaspal (finding) Active Problem 02/20/2021 [facility], BRETT Shay, BRETT Mendoza OTHER Diagnosis Active 2021-03-10 Mem oria SPECIFIED 22:01:00 l EATING OTHER [place] DISORDER SPECIFIED EATING DISORDER Active [facility] History of Past Illness Condition Condition Condition Status Onset Resolution Last Treating Co mments Source Name Details Category Date Date Treatment Clinician Date Malignant Problem 2018-2019-07-05 2019-07-05 Memoria neoplasm 1-31 11:19:07 11:19:07 l of head, 05:58: [place] face and 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, face and neck 12/18/2018 07/05/2019 OPID Jaspal Malignant Problem 2018-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 2018-04-16 Memoria neoplasm 3-02 11:43:03 11:43:03 l of mouth, 04:02: Jaspal 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, unspecifie d 01/17/2018 04/16/2018 [facility] 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 (Same as: Miralax) PHOS-NaK No 1 packet, Eric luzmaria oral powder 02-18 Route: PO, l for 14:00: Dosing Jaspal reconstitut 00 Weight ion 50.284, kg, QID, Start date: 02/18/21 9:00:00 CDT, Duration: 30 day, Stop date: 03/19/21 21:00:00 CDT potassium No Notes: Memori a phosphate 02-18 (Same as: l 13:00: K [place] Phosphate) Infuse over 4 hour. Do not infuse phosphorou s concurrent ly in the same line as TPN or IVF that contains calcium. For double lumen central lines, phosphorou s may be infused in a separate lumen from TPN. Melatonin No Notes: Memori a - (Same as: l 02:00: Melatonin) [place] 00 Melatonin No Notes: Memori a 02-16 (Same as: l 23:55: Melatonin) Nystatin No Notes: Memoria 02-16 (Same l 18:00: as:Mycosta tin) Shake well. Calcium No 500 mL, Memoria Chloride 02-16 500 ml/hr, l 0.0014 17:06: Infuse [place] MEQ/ML / 00 Over: 1 Potassium hr, [...] 02-16 Magic l (Benadryl/L 16:32: mouth wash [place] idocaine/Ma 00 contains:B alox/) enadryl/Li 1:1:1 docaine/Ma alox/) 1:1:1; total volume 5 ml Calcium No 500 mL, Memoria Chloride 02-16 500 ml/hr, l 0.0014 16:30: Infuse Jaspal MEQ/ML / 00 Over: 1 Potassium hr, [...] Memoria 3-30 Same as l 17:38: Narcan [place] 00 Ondansetron No Notes: Eric luzmaria 3-30 (Same as: l 17:38: Zofran) Jaspal MEDICATION WASTE Product Size: 4 mg Product [...] Men's 3-30 Daily, 0 l 17:08: Refill(s) [place] 00 Ipratropium Yes 2 spray, Me moria [place] 3-30 NASAL, l 0.042 17:06: TID, 0 Jaspal MG/ACTUAT 00 Refill(s) Metered Dose Nasal [place] Melatonin 5 Yes 2.5 mg = Me moria mg oral 3-30 0.5 tab, l tablet 17:06: PO, [place] 00 Bedtime, PRN for insomnia Ibuprofen Yes 200 mg = 1 Me moria 200 MG Oral 3-30 tab, PO, l Tablet 17:05: BID, 0 [place] 00 Refill(s) gabapentin Yes 300 mg = [...] TAB ORALLY l Coated 17:01: 3 TIMES [place] Tablet 00 WER WEEK Vitamin D3 Yes 5,000 Memori a 5000 intl 3-30 IntlUnit = l units oral 17:00: 1 tab, PO, H ermann tablet 00 QAM, 0 Refill(s) Saw Yes = 2 cap, Memoria [place] 3-30 PO, Daily, l 450 mg oral 16:59: 0 Kiran n capsule 00 Refill(s) Acetaminoph No 1 tab, PO, Memoria en 325 MG / 3-30 Q6H, PRN l Hydrocodone 16:57: PAIN, # 40 [place] Bitartrate 00 tab, 0 5 MG Oral Refill(s) Tablet [[place] 5/325] Magic No 10 mL, PO, Memori a Mouthwash 3-30 BID, PRN l (Benadryl/L 16:56: MOUTH Debora nn idocaine/Ma 00 PAIN, # 99 alox/) mL, 0 1:1:1 Refill(s) Fluticasone Yes 1 spray, Me moria propionate 330 NASAL, l 0.05 16:55: Bedtime, # Jaspal MG/ACTUAT 00 32 gm, 0 Metered Refill(s) Dose Nasal [place] [Flonase] phenylephri No Route: IV, Memoria ne (ANES) 02-14 Drug form: l 16:51: INJ, ONCE, [place] 00 Stop date: 02/14/21 11:51:00 CDT CoQ10 Yes 100 mg, Memoria 3-30 PO, Daily, l 16:49: 0 Jaspal Refill(s) diphenhydrA Yes 12.5 mg = M [...] 3-30 not crush l 14:00: or chew. [place] 00 (Same As: Ecotrin) Fluticasone No Notes: Eric luzmaria propionate 3-30 (Same as: l 0.05 14:00: Flonase) Jaspal MG/ACTUAT 00 Metered Dose Nasal [place] [Flonase] Ipratropium No 84 Memori a [place] 3-30 microgram, l 0.042 14:00: 2 spray, [place] MG/ACTUAT 00 Route: Metered NASAL, Dose Nasal Drug Form: [place] SPRY, Dosing Weight 53.636, kg, Daily, Start [...] alox/) 1:1:1 Nystatin No 2,000,000 Eric luzmaria 666003 3-30 unit = 20 l UNT/ML Oral 01:53: mL, PO, Her araiza Suspension 00 Q6H, Swish and Swallow, # 200 mL, 0 Refill(s) Saw No 0 Memoria [place] 3-30 Refill(s) l 01:52: Jaspal 00 Ibuprofen No 200 mg, Memor ia 3-30 BID, 0 l 01:52: Refill(s) Acetaminoph No 1 tab, PO, Memoria en 325 MG / 3-30 Q6H, PRN l Hydrocodone 01:51: Pain, # 60 [place] Bitartrate 00 tab, 0 5 MG Oral [...] luzmaria 3-29 acetaminop l 23:00: hen = Jaspal 00 4000mg/day (4 gm/day). (Same as: Tylenol) [...] not exceed l Hydrocodone 20:21: 4gm/day of [place] Bitartrate 00 acetaminop 10 MG Oral hen. Tablet (Same as: [[place] 10/325] 325/10) tramadol No Notes: Not Mem [...] 01-18 Rate: 125 l 0.0014 16:10: ml/hr, [place] MEQ/ML / 00 Infuse Potassium over: 8 Chloride hr, Route: 0.004 IV, Dosing MEQ/ML / Weight Sodium 55.1 kg, Chloride Total 0.103 Volume: MEQ/ML / 1,000, Sodium Start Lactate date: 0.028 01/18/21 MEQ/ML 10:10:00 Injectable ORTHO TECH, Solution Duration: 30 day, Stop date: 02/17/21 10:09:00 CDT, 1.61, m2 Hydralazine 1-0 No 10 mg, Eric luzmaria 01-18 Route: l 16:10: IVP, [place] 00 Q20Min, Dosing Weight 55.1, kg, PRN Elevated BP, Start date: 01/18/21 10:10:00 ORTHO TECH, Duration: 2 doses or times, Stop date: Limited # of times Acetaminoph 1-0 No 1,000 mg, M emoria en 01-18 Route: PO, l 16:10: Drug form: Jaspal 00 TAB, ONCE, Dosing Weight 55.1, kg, PRN Pain Score 1-3, Start date: 01/18/21 10:10:00 ORTHO TECH Oxycodone 1-0 No 5 mg, Memoria Hydrochlori 01-18 Route: PO, l de 5 MG 16:10: Drug form: Herm ciro Oral Tablet 00 TAB, Q4H, Dosing Weight 55.1, kg, PRN Pain Score 4-6, Start date: 01/18/21 10:10:00 ORTHO TECH, Duration: 30 day, Stop date: 02/17/21 10:09:00 CDT Morphine 1-0 No 2 mg, Memoria 3-03 Route: l 16:10: IVP, [place] 00 Q5Min, Dosing Weight 55.1, kg, PRN Pain Score 4-6, Start date: 01/18/21 10:10:00 ORTHO TECH, Duration: 5 doses or times, Stop date: Limited # of times Fentanyl 2020-0 No 25 Memoria 3-03 microgram, l 16:10: Route: Jaspal 00 IVP, Q5Min, Dosing Weight 55.1, kg, PRN Pain Score 4-6, Priority: Routine, Start date: 01/18/21 10:10:00 ORTHO TECH, Duration: 4 doses or times, Stop date: Limited # of times Hydromorpho 2020-0 No 0.5 mg, Mem oria ne 01-18 Route: l 16:10: IVP, Jaspal 00 Q5Min, Dosing Weight 55.1, kg, PRN Pain Score 7-10, Start date: 01/18/21 10:10:00 ORTHO TECH, Duration: 4 doses or times, Stop date: Limited # of times Flumazenil 2020-0 No 0.2 mg, Eric luzmaria 01-18 Route: l 16:10: IVP, PRN, Jaspal 00 Dosing Weight 55.1, kg, PRN Benzodiaze pine Reversal, Initial dose, Start date: 01/18/21 10:10:00 ORTHO TECH, Duration: 30 day, Stop date: 02/17/21 11:09:00 CDT Naloxone 2020-0 No 0.4 mg, Memori a 01-18 Route: l 16:10: IVP, Jaspal 00 Q2MIN, Dosing Weight 55.1, kg, PRN Narcotic Reversal, Start date: 01/18/21 10:10:00 ORTHO TECH, Duration: 8 doses or times, Stop date: Limited # of times Ephedrine 2020-0 No 5 mg, Memoria 01-18 Route: l 16:10: IVP, Jaspal 00 Q5Min, Dosing Weight 55.1, kg, PRN Low Blood Pressure, Start date: 01/18/21 10:10:00 ORTHO TECH, Duration: 30 day, Stop date: 02/17/21 11:09:00 CDT Albuterol 1-0 No 2.49 mg, Eric luzmaria 0.83 MG/ML 01-18 Route: l Inhalant 16:10: NEB, Jaspal Solution 00 Q20Min, Dosing Weight 55.1, kg, PRN Wheezing, Start date: 01/18/21 10:10:00 ORTHO TECH, Duration: 30 day, Stop date: 02/17/21 11:09:00 CDT Diphenhydra 1-0 No 12.5 mg, Me moria mine 01-18 Route: l 16:10: IVP, Drug [place] 00 form: INJ, Q6H, Dosing Weight 55.1, kg, PRN Itching, Start date: 01/18/21 10:10:00 ORTHO TECH, Duration: 30 day, Stop date: 02/17/21 10:09:00 CDT Meperidine 1-0 No 12.5 mg, Mem oria 3-03 Route: l 16:10: IVP, Jaspal 00 Q30Min, Dosing Weight 55.1, kg, PRN Other -See Comment, For shivering, Start date: 01/18/21 10:10:00 ORTHO TECH, Duration: 2 doses or times, Stop date: Limited # of times Ondansetron 1-0 No 4 mg, Memor ia 3-03 Route: l 16:10: IVP, ONCE, Jaspal 00 Dosing Weight 55.1, kg, PRN Nausea & Vomiting, Start date: 01/18/21 10:10:00 ORTHO TECH Promethazin 1-0 No 6.25 mg, Me moria e 3-03 Route: l 16:10: IVPB, [place] 00 ONCE, Dosing Weight 55.1, kg, PRN Nausea & Vomiting, Start date: 01/18/21 10:10:00 ORTHO TECH Midazolam 1-0 No 1 mg, Memoria 3-03 Route: l 16:10: IVP, Jaspal 00 Q5Min, Dosing Weight 55.1, kg, PRN Anxiety, Start date: 01/18/21 10:10:00 ORTHO TECH, Duration: 2 doses or times, Stop date: Limited # of times Hydralazine 1-0 No 10 mg, Eric luzmaria 3-03 Route: l 16:06: IVP, Jaspal 00 Q20Min, Dosing Weight 55.1, kg, PRN Elevated BP, Start date: 01/18/21 10:06:00 ORTHO TECH, Duration: 2 doses or times, Stop date: Limited # of times Labetalol 1-0 No 10 mg, Memori a 3-03 Route: l 16:06: IVP, [place] 00 Q5Min, Dosing Weight 55.1, kg, PRN Elevated BP, Start date: 01/18/21 10:06:00 ORTHO TECH, Duration: 5 doses or times, Stop date: Limited # of times Acetaminoph 1-0 No 1,000 mg, M emoria en 3-03 Route: PO, l 16:06: Drug form: Jaspal 00 TAB, ONCE, Dosing Weight 55.1, kg, PRN Pain Score 1-3, Start date: 01/18/21 10:06:00 ORTHO TECH Oxycodone 1-0 No 5 mg, Memoria Hydrochlori -03 Route: PO, l de 5 MG 16:06: Drug form: Herm ciro Oral Tablet 00 TAB, Q4H, Dosing Weight 55.1, kg, PRN Pain Score 4-6, Start date: 01/18/21 10:06:00 ORTHO TECH, Duration: 30 day, Stop date: 02/17/21 10:05:00 CDT Fentanyl 2020-0 No 25 Memoria 3-03 microgram, l 16:06: Route: [place] 00 IVP, Q5Min, Dosing Weight 55.1, kg, PRN Pain Score 4-6, Priority: Routine, Start date: 01/18/21 10:06:00 ORTHO TECH, Duration: 4 doses or times, Stop date: Limited # of times Hydromorpho 2020-0 No 0.5 mg, Mem oria ne 01-18 Route: l 16:06: IVP, Jaspal 00 Q5Min, Dosing Weight 55.1, kg, PRN Pain Score 7-10, Start date: 01/18/21 10:06:00 ORTHO TECH, Duration: 4 doses or times, Stop date: Limited # of times Flumazenil 2020-0 No 0.2 mg, Eric luzmaria 01-18 Route: l 16:06: IVP, PRN, Jaspal 00 Dosing Weight 55.1, kg, PRN Benzodiaze pine Reversal, Initial dose, Start date: 01/18/21 10:06:00 ORTHO TECH, Duration: 30 day, Stop date: 02/17/21 11:05:00 CDT Naloxone 2020-0 No 0.4 mg, Memori a 01-18 Route: l 16:06: IVP, Jaspal 00 Q2MIN, Dosing Weight 55.1, kg, PRN Narcotic Reversal, Start date: 01/18/21 10:06:00 ORTHO TECH, Duration: 8 doses or times, Stop date: Limited # of times Ondansetron 2020-0 No 4 mg, Memor ia 3 Route: l 16:06: IVP, ONCE, Dosing Weight 55.1, kg, PRN Nausea & Vomiting, Start date: 01/18/21 10:06:00 ORTHO TECH Promethazin No 6.25 mg, Me moria e 01-18 Route: l 16:06: IVPB, ONCE, Dosing Weight 55.1, kg, PRN Nausea & Vomiting, Start date: 01/18/21 10:06:00 ORTHO TECH ondansetron No Route: IV, Memoria (ANES) 01-18 Drug form: l 16:04: INJ, ONCE, Stop date: 01/18/21 10:04:00 ORTHO TECH dexamethaso No Route: IV, Memoria ne (ANES) 01-18 Drug form: l 16:04: INJ, ONCE, Stop date: 01/18/21 10:04:00 ORTHO TECH sugammadex No Route: IV, M emoria (ANES) 01-18 Drug form: l 16:04: SOLN, ONCE, Stop date: 01/18/21 10:04:00 ORTHO TECH lidocaine No Route: IV, Me moria (ANES) 01-18 Drug form: l 15:42: INJ, ONCE, Stop date: 01/18/21 9:42:00 ORTHO TECH propofol No Route: IV, Mem oria (ANES) 01-18 Drug form: l 15:42: INJ, ONCE, Stop date: 01/18/21 9:42:00 ORTHO TECH rocuronium No Route: IV, M emoria (ANES) 01-18 Drug form: l 15:42: INJ, ONCE, Stop date: 01/18/21 9:42:00 ORTHO TECH fentaNYL No Route: IV, Mem oria (ANES) 01-18 Drug form: l 15:42: INJ, ONCE, Stop date: 01/18/21 9:42:00 ORTHO TECH Lactated No Route: IV, Mem oria Ringers 01-18 Total l Injection 15:00: Volume: Debora nn IV (ANES) 00 1,000, 1000 mL Start date: 01/18/21 9:00:00 ORTHO TECH, Stop date: 01/18/21 10:00:00 ORTHO TECH Isolyte S No 1,000 mL, Mem oria PH 7.4 1000 01-18 Rate: 75 l mL 13:43: ml/hr, Infuse over: 13.3 hr, Route: IV, Dosing Weight 54.091 kg, Total Volume: 1,000, Start date: 01/18/21 7:43:00 ORTHO TECH, Duration: 30 day, Stop date: 02/17/21 7:42:00 CDT, 1.61, m2 Acetaminoph No 1,000 mg, M emoria en 01-18 Route: PO, l 13:43: Drug form: TAB, PRE OP, Dosing Weight 54.091, kg, Priority: NOW, Start date: 01/18/21 7:43:00 ORTHO TECH, Duration: 1 doses or times Benadryl Yes [...] Refill(s) Ipratropium Yes 2 spray, Me moria [place] 2- NASAL, l 0.042 20:54: Daily, 0 [place] MG/ACTUAT 00 Refill(s) Metered Dose Nasal [place] non-formula Yes Refill(s) M emoria ry 2- 0 l 20:51: Vitamin B6 Yes 25 mg = 1 Me moria 25 mg oral 2-26 tab, PO, l tablet 20:49: Daily, 0 Refill(s) ferrous 0 Yes PO, Daily, Eric luzmaria sulfate - 0 l 20:48: Refill(s) Jaspal Niacin Yes PO, Daily, Memor ia 2-26 0 l 20:48: Refill(s) Jaspal 00 Vitamin D3 Yes PO, BID, 0 M emoria 2000 intl 2-26 Refill(s) l units oral 20:47: [place] tablet 00 Co-Q10 Yes PO, Daily, Memor ia 2-26 0 l 20:46: Refill(s) Jaspal non-formula Yes Refill(s) M emoria ry 2-26 0 l 20:46: [place] Niacin Yes PO, Daily, Memor ia 2-26 0 l 20:45: Refill(s) Jaspal non-formula Yes Refill(s) M emoria ry 2-26 0 l 20:45: [place] metoprolol Yes 25 mg = 1 Me [...] tab, DHT, l Tablet 19:06: Daily, # [place] 00 120 tab, 0 Refill(s) Morphine No Notes: Memoria 2-20 (Same l 02:42: as:MORPhin Jaspal 00 e Sulfate) metoprolol No Notes: Memor ia tartrate 2-19 (Same as: l 23:00: Lopressor) Jaspal 00 For oral use only. Refrigerat e. Shake well. Compound ed Product - formulatio n not commercial ly available* * Fentanyl 2017- No 50 Memoria 2-19 microgram, l 21:58: Route: IV, Jaspal 00 ONCE, Dosing Weight 76.364, kg, Start date: 01/06/18 15:58:00 ORTHO TECH, Stop date: 01/06/18 15:58:00 ORTHO TECH Versed 0 No 1 mg, Memoria 2-19 Route: IV, l 21:58: ONCE, Dosing Weight 76.364, kg, Start date: 01/06/18 15:58:00 ORTHO TECH, Stop date: 01/06/18 15:58:00 ORTHO TECH Versed 0 No 1 mg, Memoria 2-19 Route: IV, l 21:40: ONCE, Dosing Weight 76.364, kg, Start date: 01/06/18 15:40:00 ORTHO TECH, Stop date: 01/06/18 15:40:00 ORTHO TECH Fentanyl No 50 Memoria 2-19 microgram, l 21:40: Route: IV, [place] 00 ONCE, Dosing Weight 76.364, kg, Start date: 01/06/18 15:40:00 ORTHO TECH, Stop date: 01/06/18 15:40:00 ORTHO TECH Glucagon 0 No 1 mg, Memoria 2-19 Route: IV, l 21:38: ONCE, Dosing Weight 76.364, kg, Start date: 01/06/18 15:38:00 ORTHO TECH, Stop date: 01/06/18 15:38:00 ORTHO TECH hydrocortis No Notes: Eric luzmaria one 2.5% [...] Weight 76.364, kg, Start date: 01/05/18 21:00:00 ORTHO TECH, Duration: 30 day, Stop date: 02/03/18 21:00:00 CDT tramadol No Notes: Not Mem oria hydrochlori -19 to exceed l de 50 MG 01:56: 400mg/day. Her araiza Oral Tablet 00 (Same As: Ultram) sennosides, No Notes: Eric luzmaria SNF 2-17 (Same as: l 15:00: Senokot) Docusate No Notes: Memoria 2-17 (Same as: l 15:00: Colace) Protonix No 40 mg, Memoria 2-16 Route: l 15:00: IVP, Jaspal 00 Daily, Dosing Weight 76.364, kg, Patient is NPO, Start date: 01/03/18 9:00:00 ORTHO TECH, Duration: 30 day, Stop date: 02/01/18 9:00:00 CDT Sodium No 250 mL, Memoria Chloride 2-16 Rate: To l 0.9% 14:11: prime line [place] (titrate) 00 and flush 250 mL remaining blood products., Dosing Weight 76.364, kg, Route: IV, Total Volume: 250, Start Date: 01/03/18 8:11:00 ORTHO TECH, Duration: 30 day, Stop date: 02/02/18 8:10:00 CDT, Replace Every: 24 hr Acetaminoph No Notes: Max Memoria en 2-16 acetaminop l 14:00: hen = Jaspal 00 4000mg/day (4 gm/day). (Same as: Tylenol) heparin No 5,000 Memoria 2-16 unit, l 03:00: Route: [place] 00 SUB-Q, Q12H, Dosing Weight 76.364, kg, Start date: 01/02/18 21:00:00 ORTHO TECH, Duration: 30 day, Stop date: 02/01/18 9:00:00 CDT Metamucil No Notes: Memori a 2-15 (Same as: l 20:55: Metamucil) Mix in 8 oz liquid with meal. potassium No Notes: Memori a phosphate-s 2-15 (Same as: l odium 15:47: Phos-NaK) [place] phosphate 00 Each 1.5 250 mg-280 gm [...] Dilaudid) conc = 0.5 mg/ml Hydromorph one [employer] Dose: ;Delay: ;Basal: Calcium No Notes: Memoria [...] 15:00: food. sennosides, No Notes: Eric luzmaria SNF 2-14 (Same as: l 15:00: Senokot) Docusate No Notes: Memoria 2-14 (Same as: l 15:00: Colace) 24 HR No 50 mg, 1 Memoria Metoprolol 2-14 tab, l Tartrate 50 15:00: Route: PO, [place] MG Extended 00 Drug form: Release ERTAB, Tablet Daily, [Toprol] Start date: 01/01/18 9:00:00 ORTHO TECH, Duration: 30 day, Stop date: 01/30/18 9:00:00 CDT Aspirin 81 No Notes: Memor ia MG Chewable 2-14 Take with l Tablet 15:00: food. Zofran No Notes: Memoria 2-14 (Same as: l 14:07: Zofran) MEDICATION WASTE Product Size: 4 mg Product Wasted: ___ mg Albuterol No Notes: Memori a 0.833 MG/ML 2-14 (Same as: l 14:04: Duoneb) Ipratropium 00 [place] 0.167 MG/ML Inhalant Solution [DuoNeb] Acetaminoph No Notes: Max Memoria en 2-14 acetaminop l 14:00: hen = 4000mg/day (4 gm/day). (Same as: Tylenol) Unasyn No Notes: Memoria 2-14 Dosing l 14:00: based on Ampicillin component (Same as: Unasyn) Calcium No Notes: Memoria Carbonate 2-14 (Same As: l 500 MG 13:37: Tums) Jaspal Chewable 00 Calcium Tablet Carbonate 500 mg = 200 mg elemental calcium Dose = mg calcium carbonate ( mg elemental calcium) potassium No Notes: Memori a phosphate-s 2-14 (Same as: l odium 13:37: Phos-NaK) Jaspal phosphate 00 Each 1.5 250 mg-280 gm pkt has mg-160 mg 250mg oral powder phosphorou for s. Mix reconstitut w/2.5oz ion water and stir. Magnesium No Notes: Memori a Sulfate 2-14 WASTE: F/P l 13:37: - Sink; E - [facility] Trash Bin Magnesium No Notes: Memori a Oxide 2-14 (Same as: l 13:37: Mag-Ox [place] 00 400) Magnesium oxide [id number] g elemental magnesium Dose=____m g magnesium oxide (___mg elemental magnesium) Calcium No Notes: Memoria Gluconate 2-14 WASTE: F/P l 13:37: - Sink; E - [facility] Trash [facility] sodium No 15 mmol, 5 Memor ia phosphate 2-14 mL, Route: l 13:37: IVPB, PRN, [place] 00 Dosing Weight 76.364, kg, PRN Abnormal Lab Result, Start date: 01/01/18 7:37:00 ORTHO TECH, Duration: 30 day, Stop date: 01/31/18 8:36:00 [...] regular 2-14 units) l 13:26: WASTE: F/P Jaspal - Black; E - [facility] Trash Bin Stable for 28 days at room temperatur e Expires in days from ____Date Dextrose No 25 gm, 50 Eric luzmaria 50% Syringe 2-14 mL, Route: l 13:26: IVP, Drug Form: INJ, Dosing Weight 76.364, kg, PRN, PRN Blood Glucose Results, Start date: 01/01/18 7:26:00 ORTHO TECH, Duration: 30 day, Stop date: 01/31/18 8:25:00 CDT Glucagon No 1 mg, Memoria 2-14 Route: IM, l 13:26: Drug form: PDR/INJ, PRN, Dosing Weight 76.364, kg, PRN Blood Glucose Results, Start date: 01/01/18 7:26:00 ORTHO TECH, Duration: 30 day, Stop date: 01/31/18 8:25:00 CDT Hydromorpho No Notes: Eric luzmaria ne 2-14 (Same as: l 13:21: Dilaudid) conc = 0.5 mg/ml Hydromorph one [employer] Dose: ;Delay: ;Basal: chlorhexidi No Notes: Eric luzmaria ne 2-14 (Same As: l gluconate 12:25: Peridex) Herm ciro 1.2 MG/ML [place] ketAMINE No Route: IV, Mem oria (ANES) 2-14 Drug form: l 11:40: INJ, ONCE, Stop date: 01/01/18 5:40:00 ORTHO TECH norepinephr No Route: IV, Memoria ine (ANES) 2-14 Drug form: l 10:50: INJ, ONCE, Stop date: 01/01/18 4:50:00 ORTHO TECH fentaNYL No Route: IV, Mem oria (ANES) 2-14 Drug form: l 10:50: INJ, ONCE, Stop date: 01/01/18 4:50:00 ORTHO TECH midazolam 2017- No Route: IV, Me moria (ANES) 2-14 Drug form: l 10:45: SOLN, 00 ONCE, Stop date: 01/01/18 4:45:00 ORTHO TECH rocuronium No Route: IV, M emoria (ANES) 2-14 Drug form: l 10:45: INJ, ONCE, Stop date: 01/01/18 4:45:00 ORTHO TECH propofol No Route: IV, Mem oria (ANES) 2-14 Drug form: l 10:45: INJ, ONCE, Stop date: 01/01/18 4:45:00 ORTHO TECH ceFAZolin No Route: IV, Me moria (ANES) 2-14 Drug form: l 10:30: INJ, ONCE, Stop date: 01/01/18 4:30:00 ORTHO TECH Lactated No Route: IV, Mem oria Ringers 2-14 Total l Injection 09:40: Volume: Debora nn IV (ANES) 00 1,000, 1000 mL Start date: 01/01/18 3:40:00 ORTHO TECH, Stop date: 01/01/18 4:40:00 ORTHO TECH metoprolol No Notes: Memor ia tartrate -14 (Same as: l 06:00: Lopressor) For oral use only. Refrigerat e. Shake well. Compound ed Product - formulatio n not commercial ly available* * Bacitracin No 1 appl, Eric luzmaria 2-14 Route: l 06:00: TOP, Q8H, Drug form: OINT, Start date: 01/01/18 0:00:00 ORTHO TECH, Duration: 30 day, Stop date: 01/30/18 16:00:00 [...] Blood Glucose Results, Start date: 12/31/17 22:43:00 ORTHO TECH, Duration: 30 day, Stop date: 01/30/18 23:42:00 [...] Weight 68.182, kg, Start date: 12/31/17 21:00:00 ORTHO TECH, Duration: 30 day, Stop date: 01/30/18 9:00:00 CDT ketAMINE No Route: IV, Mem oria (ANES) 2-14 Drug form: l 02:25: INJ, ONCE, Stop date: 12/31/17 20:25:00 ORTHO TECH niCARdipine No Route: IV, Memoria (ANES) 2-14 Drug form: l 02:25: INJ, ONCE, Stop date: 12/31/17 20:25:00 ORTHO TECH Aspirin 300 No Notes: Eric luzmaria MG Rectal 2-14 Refrigerat l Suppository 01:38: e. Kiran n sugammadex No Route: IV, M emoria (ANES) 2-14 Drug form: l 01:03: SOLN, Jaspal 00 ONCE, Stop date: 12/31/17 19:03:00 ORTHO TECH Isolyte S 2017- No Notes: Memori a PH 7.4 1000 2-14 (Same as: l mL 00:51: Isolyte S PH 7.4) Hydromorpho No Notes: Eric luzmaria ne 2-14 (Same as: l 00:51: Dilaudid) conc = 0.5 mg/ml Hydromorph one [employer] Dose: ;Delay: ;Basal: Naloxone No Notes: Memoria 2-14 Same as l 00:51: Narcan ondansetron No Route: IV, Memoria (ANES) 2-14 Drug form: l 00:27: INJ, ONCE, Stop date: 12/31/17 18:27:00 ORTHO TECH acetaminoph No Route: IV, Memoria en (ANES) 2-14 Drug form: l 10 mg 00:15: INJ, Start Kiran n date: 12/31/17 18:15:00 ORTHO TECH, Stop date: 12/31/17 19:15:00 ORTHO TECH calcium No Route: IV, Eric luzmaria chloride 2-14 Drug form: l (ANES) 00:12: INJ, ONCE, Debora nn 00 Stop date: 12/31/17 18:12:00 ORTHO TECH rocuronium No Route: IV, M emoria (ANES) 2-13 Drug form: l 23:27: INJ, ONCE, Jaspal 00 Stop date: 12/31/17 17:27:00 ORTHO TECH ceFAZolin No Route: IV, Me moria (ANES) 2-13 Drug form: l 23:02: INJ, ONCE, [place] Stop date: 12/31/17 17:02:00 ORTHO TECH SUFentanil No Route: IV, M emoria (ANES) + 2-13 Drug form: l Sodium 22:32: INJ, ONCE, Debora nn Chloride Stop date: 0.9% IV 12/31/17 (ANES) 99 16:32:00 mL ORTHO TECH Sodium 2017-0 No Route: IV, Memor ia Chloride 2-13 Drug form: l 0.9% IV 21:02: INJ, Start Herm ciro (ANES) 99 00 date: mL + 12/31/17 SUFentanil 15:02:00 (ANES) 50 ORTHO TECH, Stop microgram date: 12/31/17 16:02:00 ORTHO TECH ketAMINE 2017-0 No Route: IV, Mem oria (ANES) 2-13 Drug form: l 21:01: INJ, ONCE, [place] 00 Stop date: 12/31/17 15:01:00 ORTHO TECH ePHEDrine 2017- No Route: IV, Me moria (ANES) 2-13 Drug form: l 19:35: INJ, ONCE, Jaspal 00 Stop date: 12/31/17 13:35:00 ORTHO TECH calcium 2017-0 No Route: IV, Eric luzmaria chloride 2-13 Drug form: l (ANES) 19:35: INJ, ONCE, Debora nn Stop date: 12/31/17 13:35:00 ORTHO TECH phenylephri 2017-0 No Route: IV, Memoria ne (ANES) 2-13 Drug form: l 18:55: INJ, ONCE, Stop date: 12/31/17 12:55:00 ORTHO TECH magnesium 2017-0 No Route: IV, Me moria sulfate 2-13 Drug form: l (ANES) 40 18:35: INJ, Start He rmann mg 00 date: 12/31/17 12:35:00 ORTHO TECH, Stop date: 12/31/17 13:35:00 ORTHO TECH acetaminoph No Route: IV, Memoria en (ANES) 2-13 Drug form: l 10 mg 17:49: INJ, Start Kiran n 00 date: 12/31/17 11:49:00 ORTHO TECH, Stop date: 12/31/17 12:49:00 ORTHO TECH SUFentanil 2017-0 No Route: IV, M emoria (ANES) 2-13 Drug form: l 17:45: INJ, ONCE, [place] Stop date: 12/31/17 11:45:00 ORTHO TECH fentaNYL 2018-0 No Route: IV, Mem oria (ANES) 2-13 Drug form: l 17:45: INJ, ONCE, Stop date: 12/31/17 11:45:00 ORTHO TECH succinylcho 2018-0 No Route: IV, Memoria line (ANES) 2-13 Drug form: l 17:45: INJ, ONCE, Stop date: 12/31/17 11:45:00 ORTHO TECH propofol 2018-0 No Route: IV, Mem oria (ANES) 2-13 Drug form: l 17:45: INJ, ONCE, Stop date: 12/31/17 11:45:00 ORTHO TECH lidocaine 2018-0 No Route: IV, Me moria (ANES) 2-13 Drug form: l 17:40: INJ, ONCE, Stop date: 12/31/17 11:40:00 ORTHO TECH dexamethaso 2018-0 No Route: IV, Memoria ne (ANES) 2-13 Drug form: l 17:40: INJ, ONCE, Stop date: 12/31/17 11:40:00 ORTHO TECH rocuronium 2018-0 No Route: IV, M emoria (ANES) 2-13 Drug form: l 17:30: INJ, ONCE, Stop date: 12/31/17 11:30:00 ORTHO TECH ceFAZolin 2018-0 No Route: IV, Me moria (ANES) 2-13 Drug form: l 17:10: INJ, ONCE, Stop date: 12/31/17 11:10:00 ORTHO TECH Sodium 2018-0 No Route: IV, Memor ia Chloride -13 Drug form: l 0.9% IV 16:52: INJ, Start Herm ciro (ANES) 99 00 date: mL + 12/31/17 SUFentanil 10:52:00 (ANES) 50 ORTHO TECH, Stop microgram date: 12/31/17 11:52:00 ORTHO TECH Lactated 2017-0 No Route: IV, Mem oria Ringers 2-13 Total l Injection 16:15: Volume: Debora nn IV (ANES) 00 1,000, 1000 mL Start date: 12/31/17 10:15:00 ORTHO TECH, Stop date: 12/31/17 11:15:00 ORTHO TECH Acetaminoph 2018-0 Yes 1 tab, PO, Memoria en 325 MG / 2-13 Q6H, 0 l Hydrocodone 13:41: Refill(s) H ermann Bitartrate 00 10 MG Oral Tablet [[place] 10/325] Tramadol No 50 mg, PO, Mem oria 2-13 Q4-6H, PRN l 13:40: Pain, # 20 [place] 00 tab, 0 Refill(s) charcoal Yes PO, 0 Memoria 2-13 Refill(s) l 13:39: Jaspal 00 Simvastatin No PO, Memori a 2-13 Bedtime, 0 l 13:39: Refill(s) [place] gabapentin No 300 mg = 1 M emoria 300 MG Oral 2-13 cap, PO, l Capsule 13:39: TID, 0 [place] 00 Refill(s) metoprolol Yes 50 mg = 1 Me moria 50 mg oral 2-13 tab, PO, l tablet, 13:39: Daily, 0 Kiran n extended 00 Refill(s) release Lactated No 1,000 mL, Eric luzmaria Ringers IV 12-31 Rate: 40 l 1,000 mL 13:12: ml/hr, 00 Infuse over: 25 hr, Route: IV, Dosing Weight 68.182 kg, Total Volume: 1,000, Start date: 12/31/17 7:12:00 ORTHO TECH, Duration: 30 day, Stop date: 01/30/18 7:11:00 CDT, 1.84, m2 Vital Signs Vital Name Observation Time Observation Value Comments Source Temperature Oral (F) 2021-02-18 17:01:00 97.7 F [facility] [place] Heart Rate 2021-02-18 17:01:00 [facility] [place] Respitory Rate 2021-02-18 17:01:00 [facility] al [place] Systolic (mm Hg) 2021-02-18 17:01:00 Eric rial [place] Diastolic (mm Hg) 2021-02-18 17:01:00 Mem orial [place] Systolic (mm Hg) 2021-02-18 13:09:00 Eric rial [place] Diastolic (mm Hg) 2021-02-18 13:09:00 Mem orial [place] Temperature Oral (F) 2021-02-18 13:09:00 97.4 F [facility] [place] Heart Rate 2021-02-18 13:09:00 [facility] [place] Respitory Rate 2021-02-18 13:09:00 Memori al [place] Temperature Oral (F) 2021-02-18 09:43:00 97.9 F [facility] [place] Heart Rate 2021-02-18 09:43:00 [facility] [place] Respitory Rate 2021-02-18 09:43:00 Memori al [place] Systolic (mm Hg) 2021-02-18 09:43:00 Eric rial [place] Diastolic (mm Hg) 2021-02-18 09:43:00 Mem orial [place] Height 2021-02-14 09:40:00 172.72 cm [facility] [place] Weight 2021-02-14 09:40:00 [facility] [place] BMI Calculated 2021-02-14 09:40:00 [facility] [place] Height 2021-02-13 15:51:00 177.8 cm [facility] [place] BMI Calculated 2021-02-13 15:51:00 [facility] [place] Weight 2021-02-13 15:51:00 [facility] [place] Respitory Rate 2021-01-18 17:15:00 Memori al [place] Systolic (mm Hg) 2021-01-18 17:15:00 Eric rial [place] Diastolic (mm Hg) 2021-01-18 17:15:00 Mem orial [place] Respitory Rate 2021-01-18 17:00:00 [facility] [place] Systolic (mm Hg) 2021-01-18 17:00:00 Eric rial [place] Diastolic (mm Hg) 2021-01-18 17:00:00 Mem orial [place] Respitory Rate 2021-01-18 16:45:00 Memori al [place] Systolic (mm Hg) 2021-01-18 16:45:00 Eric rial [place] Diastolic (mm Hg) 2021-01-18 16:45:00 Mem orial [place] Height 2021-01-18 14:35:00 167.64 cm [facility] [place] Weight 2021-01-18 14:35:00 [facility] [place] BMI Calculated 2021-01-18 14:35:00 [facility] [place] Heart Rate 2021-01-18 14:00:00 [facility] [place] Height 2021-01-13 20:42:00 172.72 cm [facility] [place] Weight 2021-01-13 20:42:00 [facility] [place] BMI Calculated 2021-01-13 20:42:00 [facility] [place] Temperature Oral (F) 2018-01-08 18:43:00 98.5 F [facility] [place] Systolic (mm Hg) 2018-01-08 18:43:00 Eric rial [place] Diastolic (mm Hg) 2018-01-08 18:43:00 Mem orial [place] Heart Rate 2018-01-08 18:43:00 [facility] [place] Respitory Rate 2018-01-08 18:43:00 Memori al [place] Respitory Rate 2018-01-08 13:56:00 [facility] [place] Systolic (mm Hg) 2018-01-08 13:56:00 Eric rial [place] Diastolic (mm Hg) 2018-01-08 13:56:00 Mem orial [place]asp[place] Heart Rate 2018-01-08 13:56:00 [facility] [place] Temperature Oral (F) 2018-01-08 13:56:00 98.7 F [facility] [place] Heart Rate 2018-01-08 10:38:00 [facility] [place] Respitory Rate 2018-01-08 10:38:00 Memori al [place]asp[place] Systolic (mm Hg) 2018-01-08 10:38:00 Eric rial [place] Diastolic (mm Hg) 2018-01-08 10:38:00 Mem orial [place] Temperature Oral (F) 2018-01-08 10:38:00 97.9 F [facility] [place] Height 2018-01-01 15:02:00 180.34 cm [facility] [place] Height 2018-01-01 12:00:00 180.34 cm [facility] [place] Height 2018-01-01 08:40:00 180.34 cm [facility] [place] BMI Calculated 2018-01-01 01:56:00 [facility] al [place] Weight 2018-01-01 01:56:00 [facility] [place] Weight 2017-12-31 13:12:00 [facility] Jaspal BMI Calculated 2017-12-31 13:12:00 Memori al [place] Procedures Procedure Date / Time Performed Performing Clinician [facility] e Operation<sup>2</sup> [facility] 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 [id number] MH 18:54:00 10:30:00 2021-01-18 2021-01-[address] [id number] 06:25:00 23:59:00 Lauri 2021-01-18 2021-01-[address] [id number] 06:25:00 23:59:00 Lauri 2021-01-18 2021-01-18 Outpatient [id number] 06:25:00 06:25:00 2021-01-16 2021-01-16 Outpatient Rashaad Ruvalcaba [facility] [id number] 08:04:00 23:59:00 Lauri 2021-01-16 2021-01-16 Outpatient VISIT, [facility] [id number] 12:10:00 12:10:00 NURSE UCTF 2018-12-15 2018-12-15 [id number] 10:44:00 23:59:00 Lauri 2018-12-15 2018-12-15 Outpatient Rashaad Ruvalcaba [facility] [id number] 10:44:00 23:59:00 Lauri 2017-12-31 2018-01-[address] [id number] 06:24:00 14:15:00 Lauri 2017-12-25 2017-12-25 Outpatient Rashaad Ruvalcaba [facility] [id number] 13:03:00 23:59:00 Lauri Results Test Description Test [...] PANEL 2021-02-18 2.0 [facility] Debora nn 07:46:00 CHEM PANEL 2021-02-18 [...] code = MCH) 32.3 pg 27.0-31.0 [facility] VhcuyovJHYYQAVLGZ7419-80-55 07:46:0034.8[facility] HermannHEMATOLOGY 2021-02-18 07:46:0013.5[facility] WnfbhdeIAWFQSDGOP2455-11-16 07:46:16108Rwrrnnyz YntrkliTATDOSVFRJ1434-01-93 07:46:007.1[facility] HermannPARATHYROID PROFILE 2021-02-18 07:46:001.17[facility] HermannPARATHYROID QXZEOPG0667-43-57 07:46:00 1.18[facility] HermannCHEM LBKYG3136-32-32 02:48:003.0[facility] HermannPARATHYROID XBUYCPN1802-55-27 05:04:001.12[facility] HermannCHEM ZCKVC8174-14-43 05:04:003.2 [facility] HermannCHEM UFBIA5519-45-75 05:04:002.2[facility] HermannCHEM PANEL 2021-02-17 05:04:002.6[facility] HermannCHEM BATFQ7766-96-35 05:04:0099[facility] HermannCHEM BYYNB6103-88-81 05:04:0019[facility] HermannCHEM EXIYF3874-51-94 05:04:000.35[facility] HermannCHEM BTNZL3460-49-04 05:04:98839Qffbdtwc HermannCHEM YKKTT8933-20-41 05:04:004.5[facility] HermannCHEM PLGZT8642-34-25 05:04:0098 [facility] HermannCHEM DQGJO4888-65-16 05:04:0035[facility] HermannCHEM PANEL 2021-02-17 05:04:009.4[facility] HermannCHEM GWUKT5681-28-38 05:04:006.5[facility] HermannCHEM TBVIF1408-50-77 05:04:60646Yoebizkv CmaursjNGTZDTRMDK6930-55-46 05:04:006.4[facility] UznvfrtSBUDQSWNGU9607-70-51 05:04:004.11[facility] [place] JJFJANZVMR6066-31-00 05:04:0012.8[facility] KwtpfgcQMLSTEQSNU2923-47-96 05:04:00 37.9[facility] XtofkugUUJPLGHAIE0114-23-39 05:04:0092.2[facility] HermannHEMATOLOGY 2021-02-17 05:04:00 Test Item Value Reference Range Interpretation Comments MCH (test code = MCH) 31.1 pg 27.0-31.0 [facility] BrajxwbZRWEZJRMXI3345-14-87 05:04:0033.7[facility] HermannHEMATOLOGY 2021-02-17 05:04:0013.5[facility] QzgbvetPPTUZYAEBR7119-65-01 05:04:73860Dgmfmbwc RnwpzdcLPTZHGHESU8694-55-16 05:04:007.9[facility] DcvykqhASLDYFCSII8100-32-34 05:04:0069.2[facility] PxfvausPRVMAMQLFY8196-88-22 05:04:0019.9[facility] Jasp[place] WTSTVXXGIY2270-49-55 05:04:0010.5[facility] VhvyfxkSBOBSAKHPQ7277-92-09 05:04:00 0.1[facility] UrrgsaaUVRZYTEXFA6834-87-37 05:04:000.3[facility] HermannHEMATOLOGY 2021-02-17 05:04:004.4[facility] NcivkdnSQMJOINAZJ5110-36-72 05:04:001.3[facility] QmwqlpaQAFNZYFWOT1952-55-65 05:04:000.7[facility] HermannPARATHYROID PROFILE 2021-02-17 05:04:001.13[facility] HermannCHEM OEGCN9799-61-83 22:24:0090[facility] HermannCHEM CYQLL0523-68-34 22:24:0020[facility] HermannCHEM RRZMX4505-39-39 22:24:000.43[facility] HermannCHEM DAOYQ9827-17-08 22:24:80553Bjawhyys HermannCHEM SUESJ9915-26-69 22:24:003.6[facility] HermannCHEM LWKML9696-03-83 22:24:51634 [facility]annCHEM XGRPR0461-63-39 22:24:0030[facility] HermannCHEM PANEL 2021-02-16 22:24:008.6[facility] HermannCHEM KNYBZ1126-66-99 22:24:009.3[facility] HermannCHEM DPPRR4335-44-69 22:24:87220Dbleuhbo HermannCHEM QXRBW4693-27-42 22:24:003.0[facility] HermannCHEM YPRGZ2602-15-96 22:24:002.2[facility] POWHVVBTHJ5898-09-26 06:29:0071.3[facility] QncyqxcAVLPBHQZXQ9955-61-03 06:29:00 19.0[facility] CjdmzweWEXQHPJDSE2900-59-15 06:29:009.2[facility] HermannHEMATOLOGY 2021-02-16 06:29:000.2[facility] GxuguoiOHENAPWIHG9674-36-04 06:29:000.3[facility] OkqzydzWQKWOSWDMN3396-81-08 06:29:004.9[facility] NbhcfofGMIVNOEDBU5157-72-17 06:29:001.3[facility] PtbgplrRVGBRABHIE8768-56-61 06:29:000.6[facility] XWABALURCH8190-84-86 06:29:006.8[facility] VzzrqilBIUFYMRYEA9310-13-56 06:29:00 4.18[facility] TgjtrlvOFCGNOAVXU2729-62-66 06:29:0013.2[facility] HermannHEMATOLOGY 2021-02-16 06:29:0038.8[facility] AuelamcLMETGRVCEB3612-45-64 06:29:0092.8[facility] MnifaraFGMPBEWOMV4494-68-87 06:29:00 Test Item Value Reference Range Interpretation Comments MCH (test code = MCH) 31.6 pg 27.0-31.0 [facility] VdapjcxBWQLWOEXXL6647-28-10 06:29:0034.1[facility] HermannHEMATOLOGY 2021-02-16 06:29:0013.5[facility] DtearqcPKULFFZJLU2125-50-83 06:29:38968Secjqamk YdqadrxBXETXVWUKM0230-93-42 06:29:008.2[facility] XgytevxLTJTPXWHBK1102-91-37 08:52:0014.3[facility] HermannPARATHYROID LMTADFU5343-20-61 08:52:001.23[facility] HermannPARATHYROID TIKNQXK7045-14-92 08:52:001.19[facility] HermannURINE CHEM 2021-02-14 22:49:0052[facility] HermannCHEM OJFZI0926-50-97 19:54:003.3[facility]annURINE AND DIFNB7908-24-99 04:20:00Yellow *NA*(02/13/21 11:20 PM)[facility] AND NZICG5660-88-66 04:20:00Clear (02/13/21 11:20 PM)[facility] AND QZTXD0334-81-56 04:20:00 Test Item Value Reference Range Interpretation Comments UA Spec Grav (test code = UA Spec 1.011 1 Grav) [facility] AND ZONTC2693-43-49 04:20:00 Test Item Value Reference Range Interpretation Comments UA pH (test code = UA pH) 6.0 1 5.0-8.0 [facility] IZBFC1260-48-37 04:20:00Negative *NA*(02/13/21 11:20 PM)[facility] WHXFM9436-67-34 04:20:00Negative (02/13/21 11:20 PM) [facility] KPIZP0324-74-71 04:20:00<1.0[facility] AND TBDVN3510-92-54 04:20:00Negative (02/13/21 11:20 PM)[facility] DEQXX7151-42-77 04:20:00Negative (02/13/21 11:20 PM)[facility] TSLBK6133-74-98 04:20:00<1[facility]ann[facility] AND ZGHGR6951-53-50 04:20:002 [facility]annUR[facility] MKAD7801-08-05 04:20:0055.60[facility]annUR[facility] CHEM 2021-02-14 04:15:01850Jigiugzw HermannURINE EASW4984-56-42 04:15:0050[facility]annURINE SZPK2712-97-50 04:15:0033.7[facility]annURINE XKML4832-35-59 04:15:0057[facility] HermannBLOOD BANK YPPWZAG6870-75-52 20:15:00Negative (02/13/21 3:15 PM)[facility] ChyddhwOFXUJKBLAA2137-57-58 20:11:00Not Detected (02/13/21 3:11 PM)[facility] HermannCARDIAC YNFCFHH2160-92-61 19:19:00<0.02[facility] JIPAYOUCAX6405-97-65 19:19:00 Test Item Value Reference Range Interpretation Comments PT (test code = PT) 13.3 s 12.0-14.7 [facility] RmastrhRUOIYWZURD6153-14-02 19:19:00 Test Item Value Reference Range Interpretation Comments INR (test code = INR) 1.02 1 0.85-1.17 [facility] HermannCHEM DXVQA2893-88-78 14:01:06891Lohtpvgw HermannCHEM PANEL 2021-01-18 14:01:008[facility] HermannCHEM FMTCP1244-41-78 14:01:000.47[facility] HermannCHEM YDFPW1347-69-26 14:01:30492Gmkpmphq HermannCHEM NUYTN5222-73-17 14:01:004.7[facility] HermannCHEM XKVXP9143-56-48 14:01:0092[facility] HermannCHEM YXHQP3568-61-01 14:01:0028[facility] HermannCHEM PUFZY6132-45-90 14:01:009.0 [facility] HermannCHEM OOQHP8461-82-93 14:01:0010.7[facility] HermannCHEM PANEL 2021-01-18 14:01:23592Ywtnuilw NengatlNANHTZUJNH8009-49-34 14:01:0067.0[facility] EhbapukGPAEVVEUEE7698-99-12 14:01:0021.9[facility] TeovxbzEDAMSMYJCI8618-74-03 14:01:0010.7[facility] VxrqlwwVUBJSUZJDC0863-05-38 14:01:000.2[facility] DFQJTHNCYO5253-55-59 14:01:000.2[facility] HaxqfxtYFEMSSEEKU0026-27-73 14:01:004.2 [facility] SuipuarNRUYQHSBVS2484-49-94 14:01:001.4[facility] HermannHEMATOLOGY 2021-01-18 14:01:000.7[facility] KgixrxaOVWCXXYGXE1012-85-12 14:01:006.2[facility] NnxoyfaMRMWNZMXEZ2869-29-58 14:01:004.26[facility] EghvrngUTQHBHTRKF6266-54-44 14:01:0013.5[facility] EjntcftSAOKCFPCOJ8474-60-40 14:01:0040.2[facility] MAJTGBFKVU7416-31-46 14:01:0094.3[facility] KxvrjlyBMDKIWZRWP5392-20-91 14:01:00 Test Item Value Reference Range Interpretation Comments MCH (test code = MCH) 31.6 pg 27.0-31.0 [facility] RlpwfhzLGEPCRKVTJ5641-82-10 14:01:0033.5[facility] HermannHEMATOLOGY 2021-01-18 14:01:0012.8[facility] RzqylgfSXAIHEKQZR8165-27-20 14:01:91263Wfspnnyf NjynmdnCZRVOOEHBI1281-02-30 14:01:006.5[facility] RnjtcfhQDZQMYPGIJ8024-53-15 12:51:00Not Detected (01/18/21 6:51 AM)[facility] QmdieyqEZKPPNIKEQ3025-99-46 18:31:0020.1[facility] DgjbbfdEYJCJRYNXB8980-82-97 18:31:000.4[facility] VFQHGZPVVC6959-10-97 18:31:000.6[facility] ToacpkzZYDVJFMAMU6424-26-51 18:31:009.5 [facility] EfjevapQRMYQOBNJB2199-76-25 18:31:0069.4[facility] HermannHEMATOLOGY 2018-01-05 18:31:000.1[facility] NyuytedDLFUBLNGWF0327-07-29 18:31:006.4[facility] TdtmnyyUBNPGCNLDJ0567-84-05 18:31:001.9[facility] ZgsdjjeIYDKUQTQDD0287-20-50 18:31:000.9[facility] YzifejtGWITLFOGLZ3012-92-28 18:31:0030.9[facility] PQJBTZHOVY1080-40-23 18:31:0010.6[facility] CwzjvzgBTCVRYKHRK1892-46-71 18:31:00 3.32[facility] QbktecaSHOZDAMJFK7987-76-44 18:31:008.0[facility]annHEMATOLOGY 2018-01-05 18:31:00 Test Item Value Reference Range Interpretation Comments MCH (test code = MCH) 31.9 pg 27.0-31.0 [facility] FmhlwtuPIISKLJCOS2694-65-05 18:31:0034.3[facility]annHEMATOLOGY 2018-01-05 18:31:0092.9[facility] KgikocuVCULWPFXRL4489-99-36 18:31:0013.6[facility] EafcdyoGSNTWFABPP2303-32-64 18:31:74117Uwadhicm OqrldblZWGLCJIVGR7383-94-55 18:31:009.2[facility] CcyebsiPPGNRJAIQC7493-34-76 14:03:0063.8[facility] XLFQVCMGPI5182-44-71 14:03:0027.4[facility] CwinavzCHQEEXAPYG0702-21-68 14:03:00 7.5[facility] GfxygttCIZUMIRGUG9546-30-16 14:03:000.9[facility]annHEMATOLOGY 2018-01-04 14:03:000.4[facility] MsezcwgQAKTFHPGUV2367-61-35 14:03:002.7[facility] QrqwsssOXRKGNTMVF0176-13-77 14:03:006.4[facility] NjsjxzrOGLMGQJUXB4194-96-85 14:03:000.1[facility] JiqzgaaAMUFAHKSEE6283-38-67 14:03:000.7[facility] XNVOWTOCCP5364-11-63 14:03:0013.6[facility] IukxemmDSUIGXQTNR1190-95-16 14:03:00 177[facility] HwhqrbaGAKDTLKAXM7333-27-94 14:03:0033.3[facility]annHEMATOLOGY 2018-01-04 14:03:0093.6[facility] FgcdgkvKMDGJKUBKB8579-26-03 14:03:00 Test Item Value Reference Range Interpretation Comments MCH (test code = MCH) 31.2 pg 27.0-31.0 [facility] LgofozsICYCEZPDXH1685-17-94 14:03:0010.0[facility]annHEMATOLOGY 2018-01-04 14:03:0010.2[facility] BvsmvcsIJCWJPPSNB8148-37-40 14:03:0030.7[facility] KzelwrkUDRLSAHGIG2257-00-91 14:03:003.28[facility] FlizauhOSURWTIMIW2409-34-71 14:03:007.9[facility]annBLOOD BANK CHWBOVD0524-75-52 14:10:00Product available (01/03/18 8:10 AM)[facility]annCHEM LULDU7244-34-37 09:11:56563 [facility]annCHE[facility] CHJQY3162-81-11 09:11:008.3[facility]annCHEM PANEL 2018-01-03 09:11:20275Ceefzjkp HermannCHEM LDSNF2800-23-38 09:11:90780Hjheskdb HermannCHEM VSREC2152-63-43 09:11:0028[facility]annCHEM MRYIV7142-97-37 09:11:003.6[facility]annCHEM GHLJT8012-44-71 09:11:0011[facility]annCHEM MISCA0072-88-88 09:11:000.55[facility]annCHEM BBHXV3063-98-91 09:11:74202 [facility]annCHE[facility] QSFWB5156-31-60 09:11:0012.6[facility]annCHEM PANEL 2018-01-03 09:11:002.1[facility]annCHEM YOUQY1232-24-43 09:11:002.0[facility] EeyeymjJMOAGVMQTY0206-33-18 09:11:0020.5[facility] IffvxcsKKBPLADNZD4530-60-23 09:11:006.8[facility] MydkzpsJUWBCDDXFX2925-48-27 09:11:0072.3[facility] LRIOWKUADI1686-44-74 09:11:002.3[facility] LhnorcdNISUFXHAYE2532-71-48 09:11:000.8 [facility] GnbhqytTEUZGUNMDQ3338-34-82 09:11:000.2[facility]annHEMATOLOGY 2018-01-03 09:11:008.1[facility] VozmsivXMHXZCJUVD6336-63-17 09:11:000.2[facility] HcnxyanDAXXDRGYXQ2910-81-71 09:11:0094.1[facility] FfamjegNFBGGAIILL7378-01-30 09:11:0024.4[facility] CvknslnZKXBPSLDSE8606-49-56 09:11:73168Qfrrgrcl [place] CASYKIAMRL3957-06-58 09:11:00 Test Item Value Reference Range Interpretation Comments MCH (test code = MCH) 31.8 pg 27.0-31.0 [facility] WsfjlcwSBXUSICLHL7794-26-05 09:11:0033.9[facility]annHEMATOLOGY 2018-01-03 09:11:0012.9[facility] LgemrkwLPGIPTRTVV2850-26-71 09:11:008.0[facility] SoaddgdLCCCZBXFQT7156-17-35 09:11:008.3[facility] OpnzywsGZNCHRAAIO6810-53-30 09:11:0011.2[facility] WsaahwaQEHRFLPWKJ7060-58-58 09:11:002.60[facility] PARATHYROID BZFHOHD4464-41-42 09:11:001.17[facility] HermannPARATHYROID PROFILE 2018-01-03 09:11:001.14[facility]annCHEM ONKTA9515-14-21 07:59:54440Yqzqolyd HermannCHEM VGWZW8380-17-02 07:59:33637Hxxifrdb HermannCHEM FAKLN7084-16-11 07:59:003.8[facility]annCHEM IPTRH8725-85-60 07:59:000.55[facility]annCHEM CGCZL9242-14-94 07:59:76896Wpuxgrfa HermannCHEM BQRDQ6696-37-37 07:59:0010 [facility]annCHE[facility] PBYEO0478-46-49 07:59:16935Rmssadwc HermannCHEM PANEL 2018-01-02 07:59:008.0[facility]annCHEM OEHMS6735-85-96 07:59:0028[facility]annCHEM CGXGH7969-72-50 07:59:0010.8[facility]annCHEM XUFBK5192-59-42 07:59:002.1[facility]annCHEM YMNVK7636-13-77 07:59:002.6[facility] PARATHYROID FVXGWTH8619-45-14 07:59:000.95[facility] HermannPARATHYROID PROFILE 2018-01-02 07:59:000.98[facility]annCHEM UUFKA5088-76-04 16:24:003.0[facility]annCHEM MTXYW9632-17-34 16:24:002.0[facility]annCHEM JRDNJ0143-65-07 16:24:0089[facility]annCHEM PINJL9064-28-44 16:24:0025[facility]annCHEM RPGDW2008-77-10 16:24:008.2[facility]annCHEM FHRYC5118-20-17 16:24:49040 [facility]annCHE[facility] GXMIN7766-72-82 16:24:004.0[facility]annCHEM PANEL 2018-01-01 16:24:31597Kughpewk HermannCHEM EPDIC9102-73-10 16:24:000.73[facility]annCHEM MPIDQ0567-96-62 16:24:0010[facility] HermannCHEM [id number] 16:24:56225Yrtcooco HermannCHEM [id number] 16:24:0012.0[facility] [id number] 16:24:00 Test Item Value Reference Range Interpretation Comments PTT (test code = PTT) 42.1 s 22.9-35.8 [facility] [id number] 16:24:00 Test Item Value Reference Range Interpretation Comments INR (test code = INR) 1.46 1 0.85-1.17 [facility] [id number] 16:24:00 Test Item Value Reference Range Interpretation Comments PT (test code = PT) 17.8 s 12.0-14.7 [facility] HermannPARATHYROID [id number] 16:24:001.10[facility] PARATHYROID [id number] 16:24:001.12[facility] HermannCHEM [id number] 12:31:0021[facility] HermannCHEM [id number] 12:31:006.1[facility]annCHEM [id number] 12:31:003.4[facility]annCHEM [id number] 12:31:000.9 [facility]annCHEM [id number] 12:31:0048[facility] HermannCHEM PANEL 2018-01-01 12:31:0041[facility] HermannCHEM [id number] 12:31:00 Test Item Value Reference Range Interpretation Comments A/G Ratio (test code = A/G Ratio) 1.3 1 0.7-1.6 [facility]annCHEM [id number] 12:31:002.7[facility] HermannCHEM PANEL 2018-01-01 12:31:00 Test Item Value Reference Range Interpretation Comments B/C Ratio (test code = B/C Ratio) 19 1 - [facility]annCHEM [id number] 12:31:001.1[facility] HermannIMMUNOLOGY 2018-01-01 12:31:0014.0[facility] HermannSPECIAL [id number] 12:31:006.1 [facility]annCHEM [id number] 05:49:00 Test Item Value Reference Range Interpretation Comments B/C Ratio (test code = B/C Ratio) 15 1 05-12 [facility]annCHE[facility] [id number] 05:49:002.9[facility] HermannCHEM PANEL 2018-01-01 05:49:00 Test Item Value Reference Range Interpretation Comments A/G Ratio (test code = A/G Ratio) 1.2 1 0.7-1.6 [facility] [id number] 05:49:0024[facility]annCHEM PANEL 2018-01-01 05:49:006.4[facility]annCHEM [id number] 05:49:003.5[facility]annCHEM [id number] 05:49:001.1[facility] HermannCHEM [id number] 05:49:0046[facility]annCHEM [id number] 05:49:0057MeCH[facility] CenterBLOOD BANK [id number] 13:15:00Negative (12/31/17 7:15 AM)[facility] [id number] 13:13:000.0[facility]ascosaFzuqgmaOFVWMAMPLU2635-85-08 13:13:00See Note (12/31/17 7:13 AM)[facility] H[id number] 13:13:00 Test Item Value Reference Range Interpretation Comments Coag Index (test code 2.2 1 See_Comment [Auto mated message] The = Coag Index) system which g enerated this result transmit perez reference range : <=3.0. The reference range was not used to interpr et this result as kiah l/abnormal. [facility] H[id number] 13:13:00 Test Item Value Reference Range Interpretation Comments Angle (test code = Angle) 71.4 degrees 53.0-72.0 [facility]Bity[facility]zIJZRQFVJGR6975-16-10 13:13:00 Test Item Value Reference Range Interpretation Comments K-time (test code = K-time) 1.3 min 1.0-3.0 [facility] MichiganHvixvahVPHBHYQVIN0069-52-36 13:13:00 Test Item Value Reference Range Interpretation Comments R-time (test code = R-time) 4.8 min 5.0-10.0 [facility] HospitalXketpxtUGYWTAHTPB1025-07-30 13:13:[address] CenterHEMATOLOGY 2017-12-31 13:13:00 Test Item Value Reference Range Interpretation Comments Max Amp (test code = Max Amp) 66.7 mm 50.0-70.0 [facility]
--- NOTE | 2021-04-28 13:18 | EDPHYS ---
Physician Documentation [facility] Name: Johan Suarez Age: 81 yrs Sex: Male : 1940 Arrival Date: 04/28/2021 Time: 09:04 Bed 14 Private MD: ED Physician Iam Villasenor HPI: 04/28 16:52 This 81 yrs old Male presents to ER via EMS with complaints of bleeding from kdr the mouth. 16:52 The patient fell yesterday on his bottom but then this morning, he was noted to be kdr bleeding from his mouth. could not get the bleeding to stop. 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 The bleeding is dark blood at a slow ooze and not at all brisk. But also never fully stops. Onset: The symptoms/episode began/occurred this morning. Severity of symptoms: At their worst the symptoms were mild in the emergency department the symptoms are unchanged. The patient has not experienced similar symptoms in the past. The patient has been recently seen by a physician: the patient's primary care provider. Historical: - Home Meds: 09:20 metoprolol tartrate 25 mg Oral tab 1 tab 2 times per day [Active]; gabapentin 300 mg tr6 oral cap 1 cap as needed [Active]; flunisolide 25 mcg (0.025 %) Nasal spry 2 sprays 3 times per day [Active]; simvastatin 40 mg Oral tab 1 tab nightly [Active]; cyclobenzaprine 10 mg Oral tab 1 tab as needed [Active]; tramadol 50 mg Oral tab 1 tab as needed [Active]; aspirin 81 mg Oral chew 1 tab once daily [Active]; hydrocodone-acetaminophen 5-325 mg Oral tab 1 tab as needed [Active]; - Immunization history:: Adult Immunizations up to date. ROS: 16:52 Constitutional: Negative for fever, chills, and weight loss, Eyes: Negative for injury, kdr pain, redness, and discharge, Neck: Negative for injury, pain, and swelling, Cardiovascular: Negative for chest pain, palpitations, and edema, Respiratory: Negative for shortness of breath, cough, wheezing, and pleuritic chest pain, Abdomen/GI: Negative for abdominal pain, nausea, vomiting, diarrhea, and constipation, Back: Negative for injury and pain, : Negative for injury, bleeding, discharge, and swelling, MS/Extremity: Negative for injury and deformity, Skin: Negative for injury, rash, and discoloration, Neuro: Negative for headache, weakness, numbness, tingling, and seizure activity. Psych: Negative for depression, anxiety, suicide ideation, homicidal ideation, and hallucinations, Allergy/Immunology: Negative for hives, rash, and allergies, Endocrine: Negative for neck swelling, polydipsia, polyuria, polyphagia, and marked weight changes, Hematologic/Lymphatic: Negative for swollen nodes, abnormal bleeding, and unusual bruising. 16:52 ENT: Positive for difficulty handling secretions, difficulty swallowing, Bleeding form the right and left dental cul-de-sac - diffuse and non-focal. Exam: 16:52 Constitutional: This is a well developed, well nourished patient who is awake, alert, kdr and in no acute distress. 16:52 Head/face: Significant deformity of both mandibular regions since removal of the right mandible and radiation to the left mandibular area. 16:52 ENT: Mouth: The patient has significant deterioration of the dental and mucosal/buccal surfaces in the floor and bilaterally in his mouth. Vital Signs: 09:05 BP 163 / 81; Pulse 83; Resp 18; Temp 98.1(A); Pulse Ox 97% on R/A; tr6 09:10 Weight 53.52 kg (R); Height 5 ft. 10 in. (177.80 cm); kg 11:00 BP 139 / 66; Pulse 80; Resp 18; Pulse Ox 100% on R/A; tr6 13:45 BP 136 / 66; tr6 09:10 Body Mass Index 16.93 (53.52 kg, 177.80 cm) kg MDM: 13:18 Patient medically screened. kdr 16:52 Data reviewed: vital signs, nurses notes, lab test result(s). Counseling: I had a kdr detailed discussion with the patient and/or guardian regarding: the historical points, exam findings, and any diagnostic results supporting the discharge/admit diagnosis, lab results, the need for outpatient follow up. Physician consultation: Malaika Ludwig MD regarding consult, patient's condition, need to come to ED to see patient, and will see patient in ED, immediately. Administered Medications: No medications were administered Disposition: 04/28/21 13:18 Discharged to Home. 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 - Condition is Stable. - Blank Diagnosis Outline, Medication Reconciliation Form, Thank You Letter form. - Follow up: Private Physician; When: 2 - 3 days; Reason: If symptoms return, Further diagnostic work-up, Recheck today's complaints, Continuance of care, Re-evaluation by your physician. Follow up: Malaika Ludwig MD; When: 2 - 3 days; Reason: If symptoms return, Further diagnostic work-up, Recheck today's complaints, Continuance of care, Re-evaluation by your physician. - Problem is new. - Symptoms have improved. Signatures: Iam Villasenor MD MD kdr Jaky Guerrier RN RN tr6 Corrections: (The following items were deleted from the chart) 13:46 13:18 04/28/2021 13:18 Discharged to Home. Impression: Oral Cavity Bleeding seondary to tr6 underlying cancer. Condition is Stable. Forms are Medication Reconciliation Form, Thank You Letter, Antibiotic Education, Prescription Opioid Use. Follow up: Private Physician; When: 2 - 3 days; Reason: If symptoms return, Further diagnostic work-up, Recheck today's complaints, Continuance of care, Re-evaluation by your physician. Follow up: Malaika Ludwig; When: 2 - 3 days; Reason: If symptoms return, Further diagnostic work-up, Recheck today's complaints, Continuance of care, Re-evaluation by your physician. Problem is new. Symptoms have improved. kdr
--- NOTE | 2021-04-28 13:18 | ER ---
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 No. Patient's initial tr6 sepsis screen is negative. Does the patient have a suspected source of infection? No. Patient's initial sepsis screen is negative. 09:07 Chief complaint: EMS states: Pt presents from home via EMS with complaints of falling kg yesterday and hitting his tail bone while taking the trash out. He denies hitting his head or any LOC. Pt stated that his mouth started bleeding around 02:00 AM and hasnt stopped. Pt stated the fall and mouth bleed are unrelated. Coronavirus screen: Client denies travel out of the [place] in the last 14 days. Client indicates they have traveled out of the [place] in the last 14 days. Ebola Screen: Patient negative for fever greater than or equal to 101.5 degrees Fahrenheit, and additional compatible Ebola Virus Disease symptoms Patient denies exposure to infectious person. Patient denies travel to an Ebola-affected area in the 21 days before illness onset. Risk Assessment: Do you want to hurt yourself or someone else? Patient reports no desire to harm self or others. Onset of symptoms was April 28, 2021 at 02:00. 09:07 Method Of Arrival: EMS: [facility] kg 09:07 Acuity: MONI 3 kg Historical: - Home Meds: 09:20 metoprolol tartrate 25 mg Oral tab 1 tab 2 times per day [Active]; gabapentin 300 mg tr6 oral cap 1 cap as needed [Active]; flunisolide 25 mcg (0.025 %) Nasal spry 2 sprays 3 times per day [Active]; simvastatin 40 mg Oral tab 1 tab nightly [Active]; cyclobenzaprine 10 mg Oral tab 1 tab as needed [Active]; tramadol 50 mg Oral tab 1 tab as needed [Active]; aspirin 81 mg Oral chew 1 tab once daily [Active]; hydrocodone-acetaminophen 5-325 mg Oral tab 1 tab as needed [Active]; - Immunization history:: Adult Immunizations up to date. Screenin:05 Abuse screen: Denies threats or abuse. Denies injuries from another. Nutritional tr6 screening: No deficits noted. Tuberculosis screening: No symptoms or risk factors identified. Fall Risk Fall in past 12 months (25 points). Assessment: 09:07 General: Appears in no apparent distress. comfortable, slender, Behavior is calm, tr6 cooperative, agitated. Pain: Complains of pain in pt reports that his lower jaw line and butt hurt. Neuro: No deficits noted. Cardiovascular: No deficits noted. Respiratory: No deficits noted. GI: Abdomen is flat, PEG tube in place. : No deficits noted. EENT: Poor dentition noted. pt has a history of jaw cancer and had lower mandible removed. Derm: No deficits noted. Musculoskeletal: No deficits noted. 09:12 Reassessment: pts daughter at bedside. tr6 09:35 Reassessment: pts daughter at bedside. tr6 10:45 Reassessment: MD Villasenor at bedside. tr6 11:45 Reassessment: ENT MD saw pt at bedside. MD to return soon to reassess pt. tr6 13:03 Reassessment: ENT MD back at bedside to assess pt. tr6 Vital Signs: 09:05 BP 163 / 81; Pulse 83; Resp 18; Temp 98.1(A); Pulse Ox 97% on R/A; tr6 09:10 Weight 53.52 kg (R); Height 5 ft. 10 in. (177.80 cm); kg 11:00 BP 139 / 66; Pulse 80; Resp 18; Pulse Ox 100% on R/A; tr6 13:45 BP 136 / 66; tr6 09:10 Body Mass Index 16.93 (53.52 kg, 177.80 cm) kg ED Course: 09:04 Patient arrived in ED. tr6 09:04 Jaky Guerrier, RN is Primary Nurse. tr6 09:05 No apparent distress. Resting quietly. Awaiting ED provider evaluation. tr6 09:05 Patient has correct armband on for positive identification. Fall risk band placed. Bed tr6 in low position. Call light in reach. Side rails up X2. property assessment monitor on. Pulse ox on. NIBP on. Door closed. Warm blanket given. Diet: Patient is NPO. 09:05 No provider procedures requiring assistance completed. Patient maintains SpO2 tr6 saturation greater than 95% on room air. 09:10 Triage completed. kg 09:11 Iam Villasenor MD is Attending Physician. kdr 13:17 Malaika Ludwig MD is Referral Physician. kdr 13:46 Patient did not have IV access during this emergency room visit. tr6 Administered Medications: No medications were administered Outcome: 13:18 Discharge ordered by . kdr 13:45 Discharged to home via wheelchair. tr6 13:45 Condition: improved 13:45 Discharge instructions given to patient, family, Instructed on discharge instructions, follow up and referral plans. safety practices, Demonstrated understanding of instructions, follow-up care, medications. 13:46 Patient left the ED. tr6 Signatures: Iam Villasenor MD MD kdr Jaky Guerrier, RN RN tr6 Nicole Coughlin RN RN kg
[2021-04-28 14:23] VITALS: TEMP 98.1
[2021-04-28 14:29] VITALS: BP 136/66
[2021-04-28 14:32] VITALS: O2SAT 100
--- NOTE | 2021-04-28 19:05 | CON ---
Date of Consultation: 04/28/2021 Reason For Consultation: Oral bleeding. History Of Present Illness: Mr. 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 Due to the location and nee d for complex reconstruction, he was referred to Dr. Rashaad Ruvalcaba at the [facility] in [place]. He has not been seen in my office since that time. The details of the cancer treatments are big and has a from the patient, his , his daughter. As best I can det ermine, the patient underwent complex surgery including right hemimandibulectomy and had a temporary tracheostomy tube. He also had some excision of the lip. He was treated with postoperative radiatio n. He later had a recurrence in the left retromolar trigone or left gingiva and underwent biopsy. Monty cuevas finished a hyperfractionated radiation treatment with Dr. Branch about 2 weeks ago. He fell the day before and was okay, but later developed some oral bleeding and presented to the emergency room f or evaluation. No imaging has been performed. Physical Examination: The patient has significant sequelae from his previous surgical intervention including findings consi stent with right hemimandibulectomy and prior tracheostomy, though he was decannulated at some point in the past and the site is well healed. His mouth opening is extremely limited. With a headlight a nd a sweetheart retractor, I am able to retract the left buccal mucosa. There is no soft tissue over lying the left mandible. The left mandible along the buccal surface shows completely exposed bone wi th no significant soft tissue. No active bleeding. No discrete lesions that I can determine. There is small clots and old blood, but after suctioning, no source of bleeding is noted in this area. Th e tongue has very limited mobility, but is elevated to degree feasible and there is ulceration and fi brinous debris and exposed bone within the lingual surface of the mandible with some old blood accumu lating, but no discrete source of active fresh bleeding. The overall tissue in this area appears mor e inflamed and due to this area of inflammation, a large piece of Surgicel is carefully packed betwee n the mandible and the tongue on the left side of the mouth. The family is instructed to remove this packing tomorrow morning and to return to the emergency room if he has recurrence of bleeding. Care Coordination: I spoke with Dr. Branch regarding this patient. He is familiar with the patien t's more recent history and would like the patient to follow up with him early next week. Plan: From an ENT standpoint, I think the patient is reasonable for discharge. The bleeding is very minimal and appears well controlled at this time. It is difficult to discern whether the bleeding i s due to his underlying neoplastic process or from acute trauma. The patient remains feeding tube de pendent and can continue home feeds as tolerated. ELSIE/LEO Voice ID: [id number] Report ID: [id number]
== END 2021-04-28 13:46 | disposition home or self-care (01) ==
LOC: ER 09:02
DX: K13.79 Other lesions of oral mucosa (principal); C41.1 Malignant neoplasm of mandible; Z92.3 Personal history of irradiation
CPT/HCPCS: 99284

== ENCOUNTER 2021-04-30 08:40 | Emergency (ER) | payer OTHER ==
--- NOTE | 2021-04-30 09:32 | RAD REPORT ---
EXAM DESCRIPTION: CT - Head Brain Wo Cont - 04/30/2021 9:22 am CLINICAL HISTORY: head injury;Confused Trauma, head injury COMPARISON: Head Brain Wo Cont dated 07/23/2019; Rad Therapy Fld Place Head dated 03/17/2018 TECHNIQUE: All CT scans are performed using dose optimization technique as appropriate and may inclu de automated exposure control or mA/KV adjustment according to patient size. FINDINGS: No intracranial hemorrhage, hydrocephalus or extra-axial fluid collection.Mild generalized brain atrophy is present with mild periventricular and deep white matter chronic microvascular ische alli changes.No areas of brain edema or evidence of midline shift. The paranasal sinuses and mastoids are clear. The calvarium is intact. 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 Vertebral arteries are calcified. IMPRESSION: No acute intracranial abnormality.
[2021-04-30] MEDS ORDERED: RSI MEDICATION KIT IV ONE ×2 (09:45→12:37)
[2021-04-30 10:02] LABS: Urine Blood Trace-intact (Negative); Urine Glucose Negative (Negative); Urine Protein Negative (Negative); Urine pH 8.5 (5.0-7.0)
[2021-04-30] MEDS ORDERED: MORPHINE 4 MG/ML SYR ONE (10:14)
[2021-04-30] MEDS ORDERED: propofoL 1,000 MG/100 ML VIAL IV ONE (10:15)
[2021-04-30 10:23] LABS: Absolute Lymphocytes (CBC) 0.8 K/uL (0.7-4.9); Basophils % 0.1 % (0-1.3); Hematocrit 32.4 % (39.6-49.0); Lymphocytes % 8.4 % (15.3-44.8); MPV 6.6 fL (7.6-11.3); RBC Red Blood Cell Count 3.69 M/uL (4.33-5.43)
[2021-04-30 10:35] LABS: Protime INR 1.2
--- NOTE | 2021-04-30 10:47 | RAD REPORT ---
EXAM DESCRIPTION: RAD - Chest Single View - 04/30/2021 9:49 am CLINICAL HISTORY: AMS, possible aspiration Chest pain. COMPARISON: Abdomen 1 View (KUB) dated 03/15/2021; Abdomen 1 View (KUB) dated 03/14/2021; Chest Single View dated 07/23/2019; CHEST PA AND LAT 2 VIEW dated 11/01/2015 FINDINGS: Portable technique limits examination quality. Tip of the endotracheal tube is at the superior margin of the aortic arch. Right-sided venous cathete r its tip in the SVC. Emphysematous changes with calcifications in the upper lung mason, unchanged.H eart size is normal with sternotomy wires present.
--- NOTE | 2021-04-30 10:54 | EDPHYS ---
Physician Documentation [facility] Name: Johan Suarez Age: 81 yrs Sex: Male : 1940 Arrival Date: 04/30/2021 Time: 08:44 Bed 4 Private MD: ED Physician Esdras Kennedy HPI: 04/30 09:01 This 81 yrs old Male presents to ER via EMS with complaints of Altered Mental rn Status. 09:01 The patient presents with confusion, decreased responsiveness. Onset: The rn symptoms/episode began/occurred at an unknown time. Possible causes: unknown. Current symptoms: In the emergency department the patient's symptoms are unchanged from the initial presentation. The patient has experienced a previous episode. The patient has been recently seen by a physician:. Per EMS report, patient found on floor this morning, likely fall, family reports AMS, no fever. Seen in ER recently for oral bleeding, likely from cancer, seen by Dr. Ludwig, sounds like surgicel placed. . Historical: - Allergies: 09:35 No Known Allergies; bp - Home Meds: 09:35 aspirin 81 mg Oral chew 1 tab once daily [Active]; metoprolol tartrate 25 mg oral tab 2 bp times per day [Active]; gabapentin 300 mg Oral cap 1 cap 4 times daily [Active]; fluticasone 50 mcg/actuation nasal spsn 1 spray once daily [Active]; simvastatin 40 mg Oral tab 1 tab once daily [Active]; cyclobenzaprine 10 mg Oral tab PRN [Active]; tramadol 50 mg Oral tab 1 tab PRN [Active]; hydrocodone-acetaminophen 5-325 mg Oral tab 1 tab as needed [Active]; ginkgo biloba 120 mg Oral tab [Active]; Vitamin D3 5,000 unit Oral tab 2 times a week [Active]; vitamin C71-oonet acid Oral 3 times a week [Active]; vitamin E 400 unit Oral cap [Active]; - 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 - Social history:: Smoking status: unknown. - Family history:: not pertinent. - Hospitalizations: : No recent hospitalization is reported. ROS: 09: Unable to obtain ROS due to altered mental status. rn Exam: 09:01 Constitutional: Thin male, spitting up blood, otherwise calm. Head/Face: rn Normocephalic, approx 5cm superficial, non-bleeding laceration to posterior/superior scalp. Eyes: Periorbital areas with no swelling, redness, or edema. ENT: + slow bleeding along left anteriolateral ginigival surface and gutter. Cardiovascular: Tachycardic. No pulse deficits. Respiratory: No increased work of breathing, no retractions or nasal flaring. Abdomen/GI: Soft, non-tender Skin: Warm, dry with normal turgor. Normal color with no rashes, no lesions, and no evidence of cellulitis. MS/ Extremity: Pulses equal, no cyanosis. Neuro: Awake, alert, not oriented to place or time. Moving all 4 extremities. Vital Signs: 08:44 BP 155 / 102; Pulse 102; Resp 18 S; Temp 97.6(TE); Pulse Ox 100% on R/A; aa5 08:45 Weight 53 kg; aa5 09:40 BP 159 / 87; Pulse 122; Resp 16; Pulse Ox 100% ; bp 09:45 BP 156 / 96; Pulse 131; Resp 16 A; Pulse Ox 100% on ETT vent; aa5 10:00 BP 134 / 76; Pulse 107; Resp 16 A; Pulse Ox 100% on ETT vent; aa5 10:15 BP 100 / 60; Pulse 101; Resp 16 A; Pulse Ox 100% on ETT vent; aa5 10:30 BP 101 / 62; Pulse 100; Resp 16 A; Pulse Ox 100% on ETT vent; aa5 10:40 BP 112 / 60; Pulse 98; Resp 16 A; Pulse Ox 100% on ETT vent; aa5 11:00 BP 117 / 62; Pulse 102; Resp 16; Pulse Ox 100% ; bp 12:06 BP 108 / 69; Pulse 102; Resp 16; Pulse Ox 100% ; bp 13:00 BP 90 / 50; Pulse 90; Resp 16; Pulse Ox 100% ; ae4 14:24 BP 94 / 56; Pulse 80; Resp 16; Pulse Ox 100% ; ae4 NIH Stroke Scale Scores: 09:05 NIHSS Score: 6 bp Procedures: 09:37 Intubation: Ventilated with 100% NRB prior to procedure. O2 saturation prior to rn clinical review was 95 %. Intubated orally using #3 glidescope with 7.0 mm ETT. was successful on first attempt. Cricoid pressure applied during procedure. Tube secured with ETT dexter at right side of mouth measured 22 cm at gum. Placement verified by CO2 detector with (+) color change, auscultating bilateral breath sounds, O2 saturation after procedure was 96 %. Patient tolerated well. 09:58 Central Line: the site was prepped with Betadine, in sterile fashion, a triple lumen rn catheter was inserted, in the right in 1 attempts. placement was verified, by blood return, the site was dressed with 4X4s, Tegaderm, using sterile technique, the patient tolerated the procedure, well. Laceration: 10:36 Wound Repair of 5cm ( 2.0in ) subcutaneous laceration to scalp. Distal rn neuro/vascular/tendon intact. Wound prep: Extensive cleansing by me, Wound explored extensively. Skin closed with 7 1-0 [place] using staple gun. Patient tolerated well. MDM: 08:45 Patient medically screened. rn 09:10 Differential Diagnosis: electrolyte abnormality, intracranial bleed, UTI, volume rn depletion, anemia. ED course: Surgicel placed in oral gutter along gingival surface. 09:37 ED course: Pt with syncope after return from CT, no pulse, as far as we know, full rn code, CPR initiated and intubation performed for airway protection, possible blood aspiration, 1 cycle of CPR and ROSC obtained, spoke with , and notified. . 09:40 ED course: states that if heart stops again, not to do CPR. wants DNR. . rn 10:30 ED course: Surgicel applied to gingival margin, bleeding stopped.. rn 10:51 Data reviewed: vital signs, nurses notes, lab test result(s), EKG, radiologic studies, rn CT scan, plain films, and as a result, I will admit patient. Counseling: I had a detailed discussion with the patient and/or guardian regarding: the historical points, exam findings, and any diagnostic results supporting the discharge/admit diagnosis, lab results, radiology results, the need for further work-up and treatment in the hospital. Response to treatment: the patient's symptoms have mildly improved after treatment, and as a result, I will admit patient. 04/30 08:56 Order name: CBC with Diff rn 04/30 08:56 Order name: Basic Metabolic Panel rn 04/30 08:56 Order name: Urine Culture rn 04/30 08:56 Order name: Urine Microscopic Only rn 04/30 08:56 Order name: Blood Culture Adult (2) rn 04/30 08:56 Order name: Procalcitonin rn 04/30 08:56 Order name: Lactate; Complete Time: 11:07 rn 04/30 08:56 Order name: Type And Screen rn 04/30 08:57 Order name: CBC with Automated Diff; Complete Time: 10:31 EDME 04/30 08:57 Order name: Basic Metabolic Panel; Complete Time: 11:07 EDME 04/30 10:01 Order name: Urine Dipstick-Ancillary; Complete Time: 10:31 EDME 04/30 10:13 Order name: COVID-19 : Document "Date of Symptom Onset" if Symptomatic. 04/30 10:17 Order name: PT-INR; Complete Time: 10:42 04/30 08:56 Order name: CT Head Brain wo Cont; Complete Time: 09:33 04/30 08:56 Order name: IV Start; Complete Time: 09:47 04/30 08:56 Order name: Urine Dipstick-Ancillary (obtain specimen); Complete Time: 10:04 04/30 08:56 Order name: XRAY Chest (1 view); Complete Time: 10:50 04/30 10:17 Order name: Ptt, Activated; Complete Time: 10:42 04/30 11:32 Order name: ABO/RH no charge [facility] 04/30 11:50 Order name: SARS-COV-2 RT PCR [facility] 04/30 12:14 Order name: Social Service Consult [facility] 04/30 13:46 Order name: Lactate Sepsis 2 HR Follow-up [facility] 04/30 11:13 Order name: EKG - Nurse/Tech; Complete Time: 11:14 aa5 Administered Medications: 09:59 Drug: morphine 4 mg Route: IVP; Site: right antecubital; aa5 11:06 Follow up: Response: No adverse reaction bp 09:59 Drug: Propofol 5 mcg/kg/min Route: IV; Rate: calculated rate; Site: right femoral; aa5 14:28 Follow up: IV Status: Infusion continued upon admission ae4 10:05 Drug: NS 0.9% 1000 ml Route: IV; Rate: 1000 ml; Site: right femoral; aa5 11:06 Follow up: IV Status: Completed infusion; IV Intake: 1000ml bp 11:00 Drug: Zosyn (piperacillin-tazobactam) 3.375 grams Route: IVPB; Infused Over: 60 mins; bp Site: right femoral; 14:27 Follow up: IV Status: Completed infusion; IV Intake: 100ml ae4 11:10 Drug: NS 0.9% 1000 ml Route: IV; Rate: 1000 ml; Site: right femoral; aa5 14:27 Follow up: IV Status: Completed infusion; IV Intake: 1000ml ae4 11:15 Drug: NS 0.9% 1000 ml Route: IV; Rate: 125 ml/hr; Site: right femoral; bp 14:27 Follow up: IV Status: Order to discontinue infusion; IV Intake: 250ml ae4 11:15 Drug: Calcium Gluconate 1 grams Route: IVPB; Infused Over: 60 mins; Site: right femoral;bp 14:27 Follow up: IV Status: Completed infusion; IV Intake: 100ml ae4 Disposition: 10:51 Critical Care:. rn Disposition: 04/30/21 10:53 Hospitalization ordered by Jam Kennedy for Inpatient Admission. 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 - Bed requested for Intensive Care Unit. - Status is Inpatient Admission. ae4 - Condition is Fair. - Problem is new. - Symptoms have improved. Critical care time excluding procedures: 10:51 Critical care time: Bedside Care: 25 minutes, Consultation: 5 minutes, Family rn Intervention: 5 minutes. Total time: 35 minutes NIH Stroke Scale - NIH Stroke Score Date: 04/30/2021 Time: 09:05 Total Score = 6 1a. Level of Consciousness (LOC) - 0(Alert) 1b. Level of Consciousness (LOC) (Year \\T\\ Age) - 2(Neither) 1c. LOC Commands (Open \\T\\ Closes Eyes/Cut Out Machine Operator) - 0(Both) 2. Best Gaze (Lateral Gaze Paresis) - 0(Normal) 3. Visual Field Loss - 0(No visual loss) 4. Facial Palsy - 0(Normal) 5a. Left Arm: Motor (10-second hold) - 0(No drift) 5b. Right Arm: Motor (10-second hold) - 0(No drift) 6a. Left Leg: Motor (5-second hold - always test supine) - 0(No drift) 6b. Right Leg: Motor (5-second hold - always test supine) - 0(No drift) 7. Limb Ataxia (finger/nose \\T\\ heel/[place] - test with eyes open) - 0(Absent) 8. Sensory Loss (pinprick arms/legs/face) - 0(Normal) 9. Best Language: Aphasia (description/naming/reading) - 3(Mute, global aphasia) 10. Dysarthria (speech clarity - read or repeat words) - 1(Mild to Moderate) 11. Extinction and Inattention (visual/tactile/auditory/spatial/personal) - 0(No abnormality) Initials: bp Signatures: Dispatcher [employer] EDMS Esdras Kennedy MD MD rn Calderon, Audri, RN RN aa5 Breezy Sullivan RN RN bp Sherman Shepherd RN RN ae4 Corrections: (The following items were deleted from the chart) 09:04 09:01 Per EMS report, patient found on floor this morning, likely fall, family rn reports AMS, no fever. . rn 10:48 10:14 CORONAVIRUS ordered. [facility] EDME 14:09 10:53 Hospitalization Ordered by Jam Kennedy MD for Inpatient Admission. 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 Bed requested for Intensive Care Unit. Status is Inpatient Admission. Condition is Fair. Problem is new. Symptoms have improved. rn 14:29 14:09 04/30/2021 10:53 Hospitalization Ordered by Jam Kennedy MD for ae4 Inpatient Admission. 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 Bed requested for Intensive Care Unit. Status is Inpatient Admission. Condition is Fair. Problem is new. Symptoms have improved. aa5
--- NOTE | 2021-04-30 10:54 | ER ---
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 EMS also reports unwitnessed fall, bleeding from mouth noted at this time, possible laceration noted to top of head (dry blood noted to top of head). Pt has hx of jaw cancer. 08:44 Acuity: MONI 2 aa5 08:44 Method Of Arrival: EMS: [facility] aa5 08:44 Initial Sepsis Screen: Does the patient meet any 2 criteria? HR > 90 bpm. Does the aa5 patient have a suspected source of infection? No. Patient's initial sepsis screen is negative. Risk Assessment: Do you want to hurt yourself or someone else? Unable to obtain. Onset of symptoms was April 30, 2021. 08:44 Care prior to arrival: IV initiated. Glucose check: 126. aa5 09:05 Coronavirus screen: At this time, the client does not indicate any symptoms associated bp with coronavirus-19. Ebola Screen: No symptoms or risks identified at this time. Triage Assessment: 09:05 General: Appears distressed, uncomfortable, slender, Behavior is agitated, anxious. bp Pain: Unable to use pain scale. Does not appear to understand pain scale. EENT: MOUTH AND THROAT GROSSLY ABNORMAL 2/2 CANCER AND SURGICAL REVISION, NOW WITH BLEEDING WOUND. Neuro: Level of Consciousness is awake, confused, Oriented to none. Cardiovascular: Rhythm is sinus tachycardia. Respiratory: Airway is compromised. GI: PEG tube clamped. Site clean. : No signs and/or symptoms were reported regarding the genitourinary system. Derm: No deficits noted. Musculoskeletal: No deficits noted. Historical: - Allergies: 09:35 No Known Allergies; bp - Home Meds: 09:35 aspirin 81 mg Oral chew 1 tab once daily [Active]; metoprolol tartrate 25 mg oral tab 2 bp times per day [Active]; gabapentin 300 mg Oral cap 1 cap 4 times daily [Active]; fluticasone 50 mcg/actuation nasal spsn 1 spray once daily [Active]; simvastatin 40 mg Oral tab 1 tab once daily [Active]; cyclobenzaprine 10 mg Oral tab PRN [Active]; tramadol 50 mg Oral tab 1 tab PRN [Active]; hydrocodone-acetaminophen 5-325 mg Oral tab 1 tab as needed [Active]; ginkgo biloba 120 mg Oral tab [Active]; Vitamin D3 5,000 unit Oral tab 2 times a week [Active]; vitamin F63-vgsgu acid Oral 3 times a week [Active]; vitamin E 400 unit Oral cap [Active]; - 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 - Social history:: Smoking status: unknown. - Family history:: not pertinent. - Hospitalizations: : No recent hospitalization is reported. Screenin:05 Abuse screen: Denies threats or abuse. Denies injuries from another. Nutritional bp screening: No deficits noted. Tuberculosis screening: No symptoms or risk factors identified. Fall Risk None identified. Assessment: 09:01 Reassessment: Pt's reports pt was confused in bed this morning and around 0700 she aa5 found him "on the floor, probably fell out of bed and there was blood everywhere". Pt's also reports pt was seen at Dr. Ludwig's office 2 days ago and had "surgical gauze placed to stop the bleeding", had not been bleeding since then until this morning. was notified. . 09:20 Reassessment: PT TRANSPORTED TO NC WITH OCEAN BIOLOGIST AND NURSE. PT UNCOOPERATIVE AND bp AGITATED. 09:24 Reassessment: PT RESP AGONAL, NO PULSE PALPABLE. CODE BLUE INITIATED. bp 09:40 Reassessment: ROSC. PT INTUBATED. NO MEDS GIVEN, NO SHOCKS ADMINISTERED. PT IN PEA bp PRIOR TO RETURN TO SINUS TACH. 11:08 Reassessment: No changes from previously documented assessment. Patient and/or family bp updated on plan of care and expected duration. Pain level reassessed. FAMILY AT B/S WITH MD. 12:04 Reassessment: No changes from previously documented assessment. Patient and/or family bp updated on plan of care and expected duration. Pain level reassessed. HOSPITALIST AT B/S. 12:13 Reassessment: AFTER DISCUSSION WITH DR KENNEDY, FAMILY HAS DECIDED ON HOSPICE AND COMFORT bp MEASURES ONLY. 13:14 Reassessment: Patient appears in no apparent distress at this time. No changes from ae4 previously documented assessment. Patient and/or family updated on plan of care and expected duration. Pain level reassessed. 14:24 Reassessment: REPORT TO ALE RN. PT TRANSFER TO ICU 9 WITH RT AND RN x2. ae4 Vital Signs: 08:44 BP 155 / 102; Pulse 102; Resp 18 S; Temp 97.6(TE); Pulse Ox 100% on R/A; aa5 08:45 Weight 53 kg; aa5 09:40 BP 159 / 87; Pulse 122; Resp 16; Pulse Ox 100% ; bp 09:45 BP 156 / 96; Pulse 131; Resp 16 A; Pulse Ox 100% on ETT vent; aa5 10:00 BP 134 / 76; Pulse 107; Resp 16 A; Pulse Ox 100% on ETT vent; aa5 10:15 BP 100 / 60; Pulse 101; Resp 16 A; Pulse Ox 100% on ETT vent; aa5 10:30 BP 101 / 62; Pulse 100; Resp 16 A; Pulse Ox 100% on ETT vent; aa5 10:40 BP 112 / 60; Pulse 98; Resp 16 A; Pulse Ox 100% on ETT vent; aa5 11:00 BP 117 / 62; Pulse 102; Resp 16; Pulse Ox 100% ; bp 12:06 BP 108 / 69; Pulse 102; Resp 16; Pulse Ox 100% ; bp 13:00 BP 90 / 50; Pulse 90; Resp 16; Pulse Ox 100% ; ae4 14:24 BP 94 / 56; Pulse 80; Resp 16; Pulse Ox 100% ; ae4 NIH Stroke Scale Scores: 09:05 NIHSS Score: 6 bp ED Course: 08:44 Patient arrived in ED. bp 08:44 Arm band placed on. aa5 08:45 Esdras Kennedy MD is Attending Physician. rn 08:50 Triage completed. aa5 09:00 Maintain EMS IV. Dressing intact. Good blood return noted. Site clean \\T\\ dry. Gauge \\T\\ bp site: 20 GAUGE R AC. 09:05 Patient has correct armband on for positive identification. Placed in gown. Bed in low bp position. Call light in reach. Side rails up X2. 09:05 Wound care: cleaned wound to head with chlorhexidine and normal saline. dh3 09:22 CT Head Brain wo Cont In Process Unspecified. EDMS 09:30 Assisted provider with intubation using 7.5 mm ETT via oral route. ET tube secured at bp 22cm at the gums. Set up intubation tray. Intubated by Esdras Kennedy MD Placement verified by auscultating bilateral breath sounds, CXR. 09:48 XRAY Chest (1 view) In Process Unspecified. EDMS 09:54 Assisted provider with central line placement. Set up central line tray. Triple lumen aa5 line placed in right femoral. Line placed by Esdras Kennedy MD Placement verified by blood return, Dressed with Tegaderm, Was patient positioned to in a way to prevent air embolism? Yes. Was procedure site sterilized? Yes, with Was the site allowed to dry? Yes. During the procedure, did the Practitioner(s) maintain a sterile field? Yes. Were unused ports clamped during insertion? Yes. 10:04 Urine Culture Sent. mh5 10:04 Urine Microscopic Only Sent. mh5 10:04 Urine collected: clean catch specimen, clear. mh5 10:14 Initial lab(s) drawn, by me, sent to lab. First set of blood cultures drawn by me. aa5 10:23 Breezy Sullivan, RN is Primary Nurse. bp 10:30 Second set of blood cultures drawn by me. aa5 10:53 Jam Kennedy MD is Hospitalizing Provider. rn 11:45 Warm blanket given. Pillow given. optic fibre drawer on. Pulse ox on. NIBP on. mh5 11:45 EKG done, by ED staff, reviewed by Esdras Kennedy MD COVID swab sent to lab. mh5 11:50 Mccabe cath inserted, using sterile technique, 14 Fr., by me, balloon inflated, to bp gravity drainage, returned clear yellow urine. Patient tolerated well. 14:26 Patient admitted, IV remains in place. ae4 Administered Medications: 09:59 Drug: morphine 4 mg Route: IVP; Site: right antecubital; aa5 11:06 Follow up: Response: No adverse reaction bp 09:59 Drug: Propofol 5 mcg/kg/min Route: IV; Rate: calculated rate; Site: right femoral; aa5 14:28 Follow up: IV Status: Infusion continued upon admission ae4 10:05 Drug: NS 0.9% 1000 ml Route: IV; Rate: 1000 ml; Site: right femoral; aa5 11:06 Follow up: IV Status: Completed infusion; IV Intake: 1000ml bp 11:00 Drug: Zosyn (piperacillin-tazobactam) 3.375 grams Route: IVPB; Infused Over: 60 mins; bp Site: right femoral; 14:27 Follow up: IV Status: Completed infusion; IV Intake: 100ml ae4 11:10 Drug: NS 0.9% 1000 ml Route: IV; Rate: 1000 ml; Site: right femoral; aa5 14:27 Follow up: IV Status: Completed infusion; IV Intake: 1000ml ae4 11:15 Drug: NS 0.9% 1000 ml Route: IV; Rate: 125 ml/hr; Site: right femoral; bp 14:27 Follow up: IV Status: Order to discontinue infusion; IV Intake: 250ml ae4 11:15 Drug: Calcium Gluconate 1 grams Route: IVPB; Infused Over: 60 mins; Site: right femoral;bp 14:27 Follow up: IV Status: Completed infusion; IV Intake: 100ml ae4 Intake: 11:06 IV: 1000ml; Total: 1000ml. bp 14:27 IV: 100ml; Total: 1100ml. ae4 14:27 IV: 100ml; Total: 1200ml. ae4 14:27 IV: 1000ml; Total: 2200ml. ae4 14:27 IV: 250ml; Total: 2450ml. ae4 Output: 13:13 Urine: 1000ml (Mccabe); Total: 1000ml. ae4 Outcome: 10:53 Decision to Hospitalize by Provider. rn 14:26 Admitted to ICU accompanied by nurse, family with patient, via stretcher, room 9, with ae4 oxygen, Report called to ALE RN 14:26 Condition: stable 14:26 Instructed on the need for admit. 14:29 Patient left the ED. ae4 NIH Stroke Scale - NIH Stroke Score Date: 04/30/2021 Time: 09:05 Total Score = 6 1a. Level of Consciousness (LOC) - 0(Alert) 1b. Level of Consciousness (LOC) (Year \\T\\ Age) - 2(Neither) 1c. LOC Commands (Open \\T\\ Closes Eyes/Sandblast Or Shotblast Equipment Tender) - 0(Both) 2. Best Gaze (Lateral Gaze Paresis) - 0(Normal) 3. Visual Field Loss - 0(No visual loss) 4. Facial Palsy - 0(Normal) 5a. Left Arm: Motor (10-second hold) - 0(No drift) 5b. Right Arm: Motor (10-second hold) - 0(No drift) 6a. Left Leg: Motor (5-second hold - always test supine) - 0(No drift) 6b. Right Leg: Motor (5-second hold - always test supine) - 0(No drift) 7. Limb Ataxia (finger/nose \\T\\ heel/[place] - test with eyes open) - 0(Absent) 8. Sensory Loss (pinprick arms/legs/face) - 0(Normal) 9. Best Language: Aphasia (description/naming/reading) - 3(Mute, global aphasia) 10. Dysarthria (speech clarity - read or repeat words) - 1(Mild to Moderate) 11. Extinction and Inattention (visual/tactile/auditory/spatial/personal) - 0(No abnormality) Initials: bp Signatures: Dispatcher [employer] EDMS Esdras Kennedy MD MD rn Calderon, Audri, RN RN aa5 Jada Pearl Evonne Victor 3 Breezy Sullivan RN RN bp Sherman Shepherd RN RN ae4 Corrections: (The following items were deleted from the chart) 08:52 08:44 Chief complaint: EMS states: pt's family reported confusion and agitation aa5 that began around 0300. EMS also reports unwitnessed fall, bleeding from mouth noted at this time, possible laceration noted to top of head (dry blood noted to top of head). aa5 08:53 08:44 Initial Sepsis Screen: Does the patient meet any 2 criteria? No. aa5 Patient's initial sepsis screen is negative. Does the patient have a suspected source of infection? No. Patient's initial sepsis screen is negative. aa5 09:07 09:01 Reassessment: Pt's reports pt was confused this morning and around aa5 0700 she found him "on the floor, probably fell out of bed". was notified. . aa5 11:51 11:45 Mccabe cath inserted, using sterile technique, 16 Fr., by band shover, balloon bp inflated, mh5
[2021-04-30 11:03] LABS: BUN Blood Urea Nitrogen 9 mg/dL (7-18); Bicarbonate 22 mmol/L (21-32); Glucose Level 256 mg/dL (74-106); Potassium 3.7 mmol/L (3.5-5.1)
[2021-04-30 11:05] LABS: Sodium Level 114 mmol/L (136-145)
[2021-04-30 11:21] LABS: Urine Bacteria 20-50 /HPF (NONE SEEN); Urine RBC <5 /HPF (NONE SEEN)
[2021-04-30] MEDS ORDERED: NA CHLORIDE 0.9% 1,000 ML ONE (11:58)
[2021-04-30] MEDS ORDERED: CALCIUM GLUCONATE 1 GM IVPB 1 GM/50 ML BAG IV ONE (11:58)
[2021-04-30] MEDS ORDERED: PIPER/TAZO/NS 3.375gm 3.375 GM/100 ML BAG ONE (11:58)
--- NOTE | 2021-04-30 14:12 | P.CNS ---
Date of Consult: 04/30/21 Reason for Consult: possible admission Requesting Physician: Esdras Kennedy Chief Complaint: Altered Mental Status, Cardiopulmonary arrest History of Present Illness: 81yo M, PMH: Jaw cancer, hyperlipidemia, hyponatremia, CAD s/p CABGx2, PEG-tube Brought into the ED due to progressively worsening altered mental status/confusion over the last 3-4 days. Patient was found on the floor in her bedroom after falling. He was bleeding from the wound at the top of his head as well as bleeding from his mouth. Family report he was recently seen in the ED 2 days ago because he was bleeding from his mouth. He was seen by ENT at that time, required a suture and Surgicel. Family states he recently completed radiation 2-3 weeks ago. He was instructed to stop taking his sodium supplementation during that time due to upset stomach and other side effects with radiation. Family report patient is also had more generalized weakness and vision loss over the last 2 days. In the ED, he was undergoing evaluation and upon return from CT scan he stopped responding and his pulse was lost. Patient underwent CPR for approximately 2 min. He was intubated, and a central line was placed. Shortly after this, the family had gotten together and decided that the patient was to be DNR and would not want to be intubated. After lengthy discussion, the family chose to pursue hospice and withdrawal of care. Allergies No Known Allergies Allergy (Unverified 03/13/21 02:13) Home Medications: Colostrum, Bovine [Colostrum] 500 mg PO DAILY 11/02/15 Fluticasone [Flovent Hfa 110*] 110 mcg IH DAILY 11/02/15 Gabapentin [Neurontin] 300 mg PO BID 11/02/15 Glucosamine/D3/Boswellia Winifred [Glucosamine Complex Tablet] 1 each PO DAILY 11/02/15 Hydrocodone/Acetaminophen [Hydrocodone-Acetamin 5-325 mg] 1 each PO Q6HP PRN 11/02/15 Montelukast [Singulair*] 10 mg PO DAILY 11/02/15 Multivitamin [Multivitamins] 1 each PO DAILY 11/02/15 Ondansetron HCl [Zofran] 4 mg PO Q6H PRN #10 tablet 11/02/15 Rosuvastatin [Crestor*] 10 mg PO BEDTIME 11/02/15 Saw Sullivan 500 mg PO DAILY 11/02/15 Vitamin E [Vitamin E*] 400 iu PO DAILY 11/02/15 - Past Medical/Surgical History -: Jaw cancer -: hyperlipidemia -: hyponatremia -: CAD -: CABG x2 -: hernia -: mandible resection -: feeding tube -: port-a-cath - Social History Smoking Status: Never smoker Alcohol use: No CD- Drugs: No Caffeine use: No Review of Systems is unable to be obtained Physical Examination General: Unresponsive HEENT: Other (laceration w/ dora in place on posterior heada, no active bleed. ETT in place, oral disfigurement, surgicel in place, dried blood on lips) Respiratory: Other (intubated, clear to auscultaion) Cardiovascular: No edema, Regular rate/rhythm Gastrointestinal: Soft and benign, Non-distended, Other (PEG tube in place, to LIWS) Musculoskeletal: No contractures, No erythema Integumentary: No cyanosis, Other (lacerat on head as noted above, s/p dora) Neurological: Other (sedated ) Urinary: Mccabe catheter Laboratory Data (last 24 hrs) 04/30/21 10:14: PT 13.8 H, INR 1.20, APTT 30.5 04/30/21 10:14: Sodium 114 L*, Potassium 3.7, BUN 9, Creatinine 0.51 L, Glucose 256 H 04/30/21 10:14: WBC 9.00, Hgb 11.3 L, Hct 32.4 L, Plt Count 303 Physician Review Additional Text: Problem List Hyponatremia Acute cardiopulmonary arrest s/p intubation lactic acidosis Jaw / oropharyngeal cancer HTN CAD s/p CABGx2 -workup revealed hyponatremia down to 111, lactate >7 -pt began to have agonal breathing and had no pulse, underwent CPR x2 min -long discussion with family - , and 4 daughters -they state they were actually going to be meeting today to go over the situation and discuss hospice -they report the patient has been tired of everything, has a significant drop in quality of life, and stated he wouldn't want to be maintained on a ventilator -they state he would not want to continue treatment like this, and would like to pursue comfort measures only, hospice, and withdrawal of care once family say goodbye -discussed we could treat the hyponatremia as they look into hospice, possibly home hospice; however they stated they would not want to prolong his suffering any further /unnecessarily -hospice team was contacted, patient was found appropriate for GIP -patient to be admitted directly to inpatient hospice >60minute discussion with all family members regarding patient's advance directives and disposition. Time Spent Managing Pts care (In Minutes): 60
[2021-04-30 14:44] VITALS: TEMP 97.6; O2SAT 100
[2021-04-30 14:53] VITALS: BP 94/56
== END 2021-04-30 15:30 | disposition hospice, inpatient (51) ==
LOC: ER 08:40 → ERHOLD 14:03 → UNDOADMIN 14:03 → UNDODISIN 15:01 → ER 15:30
PROC: 0JQ00ZZ Repair Scalp Subcutaneous Tissue and Fascia, Open Approach (ICD-10-PCS; principal; 2021-04-30)
PROC: 06HM33Z Insertion of Infusion Device into Right Femoral Vein, Percutaneous Approach (ICD-10-PCS; 2021-04-30)
PROC: 0BH17EZ Insertion of Endotracheal Airway into Trachea, Via Natural or Artificial Opening (ICD-10-PCS; 2021-04-30)
DX: I46.9 Cardiac arrest, cause unspecified (principal); S01.01XA Laceration without foreign body of scalp, initial encounter; C06.89 Malignant neoplasm of overlapping sites of other parts of mouth; E87.1 Hypo-osmolality and hyponatremia; E78.5 Hyperlipidemia, unspecified; E87.2 Acidosis; I10 Essential (primary) hypertension; W19.XXXA Unspecified fall, initial encounter; Y92.009 Unspecified place in unspecified non-institutional (private) residence as the place of occurrence of the external cause; Z79.82 Long term (current) use of aspirin; Z20.822 Contact with and (suspected) exposure to COVID-19; Z95.1 Presence of aortocoronary bypass graft
CPT/HCPCS: 96365; 96367; 87040 ×2; 87088; 85025; 87086; 80048; 36415; 86900; 86850; 87205; 85610; 86901; 83605 ×2; 85730; 87077; 87186; 84145; 70450; 71045; 94002; 31500; 51702; 96375; 99284; 99291; 96366; 12002; 36569; U0003; J2704; J2543; J0610; J7030; 81003; 81015

== ENCOUNTER 2021-04-30 15:04 | Inpatient (IN) | payer OTHER ==
[2021-04-30] MEDS ORDERED: BISACODYL 10 MG RECTAL SUPP PR PRN (15:11)
[2021-04-30] MEDS ORDERED: ONDANSETRON 4 MG/2 ML VIAL IV PRN (15:11)
[2021-04-30] MEDS ORDERED: ACETAMINOPHEN 650MG/RECT SUPP PR PRN (15:11)
[2021-04-30] MEDS ORDERED: SCOPOLAMINE HYDROBROMIDE PATCH TD ONE (16:00)
[2021-04-30 16:11] VITALS: O2SAT 100; BMI 15.5
[2021-04-30] MEDS: MORPHINE 4 MG/ML SYR IV PRN ×2 (18:16→22:10)
[2021-04-30] MEDS: LORazepam 2 MG/ML VIAL IV PRN (18:17)
[2021-04-30] MEDS ORDERED: LORazepam 2 MG/ML VIAL ONE (18:35)
[2021-04-30] MEDS ORDERED: MORPHINE 4 MG/ML SYR ONE ×2 (18:35→22:28)
[2021-05-01] MEDS: LORazepam 2 MG/ML VIAL IV PRN ×4 (00:09→16:52)
[2021-05-01] MEDS ORDERED: LORazepam 2 MG/ML VIAL ONE ×4 (00:28→16:58)
[2021-05-01] MEDS: MORPHINE 4 MG/ML SYR IV PRN ×6 (01:14→17:45)
[2021-05-01] MEDS ORDERED: MORPHINE 4 MG/ML SYR ONE ×6 (01:32→18:03)
[2021-05-01 16:03] VITALS: TEMP 98
[2021-05-01 18:05] VITALS: BP 140/58
[2021-05-01] MEDS ORDERED: NA CHLORIDE 0.9% 1,000 ML IV ONE (18:47)
[2021-05-01] MEDS ORDERED: EPINEPHrine 1 MG/10 ML SYR IV ONE (18:47)
== END 2021-05-01 18:48 | disposition expired | DRG 951 ==
LOC: ERHOLD 15:04
PROVIDERS: ADMIT Internal Medicine Hematology & Oncology; ATTEND Internal Medicine Hematology & Oncology
DX: Z51.5 Encounter for palliative care (principal); C10.9 Malignant neoplasm of oropharynx, unspecified; I25.10 Atherosclerotic heart disease of native coronary artery without angina pectoris; I10 Essential (primary) hypertension; Z95.1 Presence of aortocoronary bypass graft
CPT/HCPCS: 93005; 94003; J0171; J7030